=== PATIENT | female | born 1950 | race Caucasian/White ===

== ENCOUNTER 2019-10-05 01:03 | Outpatient (CLI) | payer MEDICARE, OTHER, SELFPAY ==
[2019-10-05 20:03] LABS: SARS-CoV-2 RNA PCR Negative
== END 2019-10-05 01:04 | disposition home or self-care (01) ==
LOC: ANHCOVIDDT 01:04
PROVIDERS: Visit Provider Specialist
DX: Z01.818 Encounter for other preprocedural examination (principal); Z11.59 Encounter for screening for other viral diseases
CPT/HCPCS: 87635; C9803; U0003

== ENCOUNTER 2019-10-07 08:16 | Day surgery (SDC) | payer MEDICARE, OTHER, SELFPAY ==
[2019-10-06 14:41] VITALS: BMI 32.2
[2019-10-07] VITALS (14 sets, daily range): BP systolic 113–147; BP diastolic 54–89; PULSE 41–58; RESP 14–23; TEMP 36.3; O2SAT 93–99
[2019-10-07 08:56] LABS: Basophils Percent Auto 0.3 % (0.2-1.2); Eosinophils Absolute Auto 0.1 K/mm3 (0-0.3); Eosinophils Percent Auto 1.3 % (0-4.4); Hematocrit 43.7 % (37.0-47.0); Hemoglobin 14.7 g/dL (12.0-15.0); Immature Granulocyte Absolute 0.14 K/mm3 (0.00-0.031); Immature Granulocyte Percent A 1.4 % (0-0.5); Lymphocytes Absolute Auto 1.74 K/mm3 (0.9-3.2); Lymphocytes Percent Auto 17.8 % (18.3-44.2); Mean Corpuscular HGB Conc 33.6 g/dl (32-36); Mean Corpuscular Hemoglobin 30.1 pg (26-34); Mean Corpuscular Volume 89.4 fl (80-100); Mean Platelet Volume 8.5 fl (7.4-10.4); Monocytes Absolute Auto 0.9 K/mm3 (0.1-0.6); Monocytes Percent Auto 9.4 % (2.6-8.5); Neutrophils Absolute Auto 6.8 K/mm3 (1.3-6.7); Neutrophils Percent Auto 69.8 % (45.5-73.1); Platelet Count Result 248 k/mm3 (150-375); Red Blood Count 4.89 M/mm3 (4.2-5.4); Red Cell Distribution Width 13.5 % (11.5-14.5); White Blood Count 9.8 K/mm3 (4.5-10.0)
[2019-10-07 09:08] LABS: Chloride 97 mmol/L (98-107)
[2019-10-07 09:10] LABS: Prothrombin Time 12.4 Seconds (11.1-14.7)
[2019-10-07 09:14] LABS: Blood Urea Nitrogen 16 mg/dL (7-17); Calcium 9.2 mg/dL (8.4-10.2); Carbon Dioxide 25 mmol/L (22-30); Estimated CRCL calculation 89 ml/min; Estimated Glomerular Filt Rate > 60; Glucose 99 mg/dL (65-105); Potassium 4.7 mmol/L (3.4-5.0); Sodium 129 mmol/L (137-145)
--- NOTE | 2019-10-07 10:20 | WPDMODSED ---
Moderate Sedation Note-Pt Data Patient Data Diagnosis: Mitral valve regurgitation with pulmonary hypertension Present Complaint: Exertional dyspnea Procedure to be performed/Plan: Right left heart catheterization Allergies Allergy/AdvReac Type Severity Reaction Status Date / Time morphine Allergy Unknown Verified 01/14/19 10:43 lisinopril AdvReac Unknown Cough Verified 12/16/17 09:16 Home Medications Medication Instructions Recorded Confirmed Type amlodipine 5 mg tablet 5 mg PO DAILY 04/26/19 10/07/19 History furosemide 40 mg tablet 40 mg PO BID 04/26/19 10/07/19 History losartan 50 mg tablet 50 mg PO DAILY 04/26/19 10/07/19 History rivaroxaban 20 mg tablet 20 mg PO DAILY 04/26/19 10/07/19 History citalopram 40 mg tablet 40 mg PO DAILY #90 tablet 07/17/19 10/07/19 Rx zolpidem 10 mg tablet 10 mg PO .hs PRN #30 tablet 07/20/19 10/07/19 Rx ascorbic acid (vitamin C) [Vitamin 500 mg PO DAILY 10/07/19 10/07/19 History C] cholecalciferol (vitamin D3) 25 mcg PO DAILY 10/07/19 10/07/19 History [Vitamin D3] dronedarone [Multaq] 400 mg PO BID 10/07/19 10/07/19 History metoprolol succinate 50 mg PO DAILY 10/07/19 10/07/19 History oxybutynin chloride 5 mg PO DAILY 10/07/19 10/07/19 History potassium chloride 20 meq PO DAILY 10/07/19 10/07/19 History Current Medications: Active Medications Sodium Chloride (Normal Saline Iv) 500 mls @ 100 mls/hr IV CONT .Q5H TRINI Sedation/Anesthesia: No previous sedation/anesthesia problems (including family history). [facility] Past Medical History Medical History (Updated 04/25/19 @ 21:30 by Shannan Dennis MD) Anxiety Essential hypertension H/O iron deficiency anemia Hyperlipidemia, unspecified Mitral valve disease Mixed hyperlipidemia Need for prophylactic antibiotic Prolactinoma Vitamin D deficiency Family History Family History (Updated 10/28/15 @ 23:19 by DOCTOR UNKNOWN) Mother Family history of glaucoma Family history of cataracts Family history of diabetes mellitus in first degree relative Family history of congestive heart failure Family history of heart disease in male family member before age 55 Father Asthma Cerebrovascular accident Family history of arthritis Family history of pancreatic cancer Family history of lung disease Other Diabetes mellitus Family history of coronary artery disease Family history of lung cancer Hypertension Social History Social History Smoking status: Never smoker Second hand tobacco smoke exposure: No Alcohol intake: current Substance use: never Living arrangements: alone Mod Sed Physical Exam Physical Exam Pre Procedural Exam: Normal: Nose, Neck, Throat, Airway, Lungs, Heart Rate, Heart Rhythm, Neuro Exam and Extremities and Variation: Appearance (Overweight white female) and Heart Size (Right ventricular lift) Hours since solid foods: 12 Hours since liquid intake: 12 Internal Medicine - PN: Obj Da Vital Signs Vital Signs: Vital Signs - 24 hr 10/07/19 09:02 Temperature 36.3 C L Pulse Rate 53 L Respiratory Rate 16 Blood Pressure 147/82 H Pulse Oximetry 95 Meds/Results Medications: Active Medications Generic Name Dose Route Start Last Admin Trade Name Freq PRN Reason Stop Dose Admin Sodium Chloride 500 mls @ 100 mls/hr 10/07/19 06:05 Normal Saline Iv IV CONT .Q5H TRINI Labs CBC & Chem 7: 10/07/19 08:47 10/07/19 08:47 Labs: Laboratory Results - last 24 hr 10/07/19 10/07/19 10/07/19 08:47 08:47 08:47 WBC 9.8 RBC 4.89 Hgb 14.7 Hct 43.7 MCV 89.4 MCH 30.1 MCHC 33.6 RDW 13.5 Plt Count 248 MPV 8.5 Immature Gran % (Auto) 1.4 H Neut % (Auto) 69.8 Lymph % (Auto) 17.8 L Blaine % (Auto) 9.4 H Eos % (Auto) 1.3 Baso % (Auto) 0.3 Lymph # (Auto) 1.74 Blaine # (Auto) 0.9 H Eos # (Auto) 0.1 Baso # (Auto) 0.0 Abs Immat Gran (auto) 0.14 H Absolute Neuts (auto) 6.8 H Absolute
--- NOTE | 2019-10-07 11:29 | WPDCARDPROC ---
Cardiac Cath Procedure Note Date of procedure:: 10/07/19 Performing physician:: Ovidio Rice MD Indication:: Patient with mitral valve prolapse / mitral regurgitation being evaluated is a potential candidate for surgical valve repair Brief clinical history:: 68-year-old female known to have mitral valve prolapse of the posterior leaflet. She has mitral regurgitation which appears moderate to severe by echo. She is having progressive symptoms of exertional fatigue and dyspnea. Because of this right left heart catheterization been recommended with anticipation for cardiothoracic surgery consultation Procedure Procedure performed:: right left heart catheterization Sedation/Medication given:: fentanyl 50 mg Versed 2 case start time 10:59 a.m. case end time 11:22 a.m. sedation provided by Natanael Delacruz RN , trained observer Access site:: right femoral artery / right femoral vein Estimated blood loss:: 10-15 cc Procedure note:: patient brought to the cardiac catheterization lab in the postabsorptive state. The right femoral triangle was prepared and draped usual fashion. Anesthesia was provided with 1% lidocaine infiltrated locally. Using the modified Seldinger technique 7 Algerian sheath was placed into the femoral vein and a 5 Algerian sheath into the femoral artery. Right heart catheterization was then carried out using a balloon tipped S curve Knifley-Juan catheter. Right-sided hemodynamics were documented as well as thermodilution cardiac outputs and AV O2 difference was sampled. Following this the Knifley-Juan catheter was removed. Left heart catheterization was performed using a 5 Algerian angled pigtail catheter to document left-sided hemodynamics and injecting a LV g in the 30 degree WADSWORTH projection. After this selective left coronary angiography was performed using a 5 Algerian FL4 catheter. Selective right coronary angiography was performed using a 5 Algerian JR4 catheter. The procedure was then terminated. Following an angiogram of the sheath the patient was taken to the holding area for manual sheath removal she has a very high bifurcation of the common femoral artery making her a poor candidate for Angio-Seal hemostasis device. 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 Findings:: right atrial pressure is 12 mmHg right ventricle 45 over 11 end-diastolic pressure 13. Pulmonary artery pressure 52/26. Pulmonary capillary wedge pressure was 19. Left ventricle 98 over 10 and diastolic 22. Central aortic pressure 99/48. Thermodilution cardiac output measured 3.53 liters/minute giving an index of 1.95. Debbie cardiac output 3.29 liters/minute giving an index of 1.82. The left ventricle is [id number] dilated. There is mild global hypocontractility the overall ejection fraction is in the vicinity of 50%. There is obvious prolapse of the posterior mitral valve leaflet with angiographically moderate mitral valve regurgitation. The left main coronary is very short but widely patent the LAD is a large caliber artery extending down to around the apex. The LAD has minimal luminal irregularity with plaquing in proximal 3rd. There is a very small mid diagonal branch with an ostial 70-80% stenosis. Circumflex is a large caliber vessel giving rise to the marginal branches which is angiographically smooth and normal in appearance. the right coronary artery is a medium caliber vessel dominant to the posterior circulation and is angiographically normal. Conclusion:: 1. Mild left ventricular enlargement with modest global hypokinesia ejection fraction of about 50% compared to 65% in 2018 2. pulmonary artery hypertension will secondary to MR very slightly progressed compared to 2018 3. depressed cardiac output as detailed above which was normal in 2018 4. no angiographically significant/ important coronary disease
--- NOTE | 2019-10-07 13:21 | SUR.PHASEII ---
1200-5F arterial sheath pulled by Melissa Bradshaw RN. Groin remained soft and non-tender, no evidence of bleeding or hematoma noted. Strong right pedal pulse noted. Thirty minutes of hard pressure remained in place. 7F venous sheath pulled at 1230. Will continue to monitor.
== END 2019-10-07 17:49 | disposition home or self-care (01) ==
PROVIDERS: PCP Family Medicine; Visit Provider Specialist
PROC: 4A023N8 Measurement of Cardiac Sampling and Pressure, Bilateral, Percutaneous Approach (ICD-10-PCS; CPT 93453; principal; 2019-10-07 10:00)
DX: Z01.810 Encounter for preprocedural cardiovascular examination (principal); I34.0 Nonrheumatic mitral (valve) insufficiency; I34.1 Nonrheumatic mitral (valve) prolapse; I27.20 Pulmonary hypertension, unspecified; I25.10 Atherosclerotic heart disease of native coronary artery without angina pectoris; I10 Essential (primary) hypertension; E78.2 Mixed hyperlipidemia; E55.9 Vitamin D deficiency, unspecified; Z79.01 Long term (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
CPT/HCPCS: 36415; 80048; 85025; 85610; 93460; C1887; C1894; J1644; J2250; J3010; J7040

== ENCOUNTER 2020-03-02 10:30 | Outpatient (RCR) | payer MEDICARE, OTHER, SELFPAY ==
[2019-12-17 12:36] VITALS: PULSE 63
--- NOTE | 2019-12-31 09:39 | PCCPR ---
Edgardo Wright called off states she has the diarrhea.
--- NOTE | 2020-02-02 16:30 | PCCPR ---
Radha called due to increased back pain Radha called today c/o when she walks on the TM it can cause her increased back pain. She is requesting she is willing to try if it causes to much pain she wants to stay on bicyccle tena explained that is fine. she was tearful and states she is learning she has some budging ?herniated discs in her low back. Explained she just needs to let us know we don't want her in pain.
--- NOTE | 2020-02-10 09:33 | PCCPR ---
Addendum entered by Belinda Traore RN 02/11/20 09:17: Radha called states her back and hip are still bothering her. She will have evaluated tomorrow. Original Note: Absent Adriana called states her hip is hurting her the last 2 days. She is using a heating pad and taking tylenol. She has a scheduled apt with her PCP on Saturday to evaluate her pain further.
--- NOTE | 2020-03-03 09:21 | PCCPR ---
Edgardo Wright called states she is not feeling well.
== END 2020-03-09 19:30 | disposition home or self-care (01) ==
LOC: ANHCPREHAB 10:30
PROVIDERS: PCP Family Medicine; Visit Provider Internal Medicine Cardiovascular Disease
DX: Z95.2 Presence of prosthetic heart valve (principal)
CPT/HCPCS: 93798

== ENCOUNTER → 2020-06-06 00:37 | Outpatient (CLI) | payer MEDICARE, OTHER, SELFPAY ==
[2020-06-06 18:03] LABS: SARS-CoV-2 RNA PCR Negative
== END ==
PROVIDERS: PCP Family Medicine; Visit Provider Internal Medicine Cardiovascular Disease
DX: Z01.812 Encounter for preprocedural laboratory examination (principal); Z20.822 Contact with and (suspected) exposure to COVID-19
CPT/HCPCS: C9803; U0003; U0005

== ENCOUNTER 2020-06-09 01:07 | Day surgery (SDC) | payer MEDICARE, OTHER, SELFPAY ==
[2020-06-08 15:52] VITALS: BMI 32.0
[2020-06-09] VITALS (11 sets, daily range): BP systolic 86–151; BP diastolic 37–79; PULSE 58–71; RESP 16–23; TEMP 35.7–35.9; O2SAT 94–100
[2020-06-09] MEDS: SODIUM CHLORIDE 0.9% IV 500 ML 100 ML IV CONT (09:11)
--- NOTE | 2020-06-09 10:08 | PM.IMHP ---
H&P: HPI History of Present Illness Date/Time: 06/09/20 10:08 Chief Complaint: Mitral regurgitation Narrative: 69-year-old who underwent a mitral valve repair with 2 annuloplasty rings as well as to edilma chords in October 2019. Repeat echocardiogram showed residual moderate mitral regurgitation both normalization of pulmonary hypertension and normal ejection fraction. She has been having some intermittent shortness of breath and JULISSA is performed to evaluate the mitral valve repair and cause of residual mitral regurgitation which appears to be new as compared to immediate post echo Review of Systems Review of Systems: All systems reviewed & are unremarkable except as noted in HPI and below Constitutional: Constitutional: Denies weakness Cardiovascular: Cardiovascular: Denies chest pain Respiratory: Respiratory: Reports dyspnea PMFSH Past Medical History Medical History Anxiety Essential hypertension H/O iron deficiency anemia Hyperlipidemia, unspecified Mitral valve disease Mixed hyperlipidemia Need for prophylactic antibiotic Prolactinoma Vitamin D deficiency Surgical History Surgical History H/O maze procedure History of mitral valve replacement with bioprosthetic valve Family History Family History Mother Family history of diabetes mellitus in first degree relative Family history of glaucoma Family history of congestive heart failure Family history of cataracts Diabetes mellitus Hypertension Father Family history of arthritis Cerebrovascular accident Asthma Esophageal cancer Hypertension Skin cancer Sibling Diabetes mellitus Skin cancer Sibling Diabetes mellitus Skin cancer Sibling Diabetes mellitus Social History Social History Smoking status: Never smoker Second hand tobacco smoke exposure: No Alcohol intake: current Drinks per week: 4 Substance use: never Substance use type: does not use Living arrangements: with family Spiritual care concerns: No Meds Home Medications and Allergies Home Medications Medication Instructions Recorded Confirmed Type furosemide 40 mg tablet 40 mg PO DAILY 04/26/19 06/08/20 History rivaroxaban 20 mg tablet 20 mg PO DAILY 04/26/19 06/08/20 History ascorbic acid (vitamin C) [Vitamin 500 mg PO DAILY 10/07/19 06/08/20 History C] cholecalciferol (vitamin D3) 25 mcg PO DAILY 10/07/19 06/08/20 History [Vitamin D3] metoprolol succinate 50 mg PO DAILY 10/07/19 06/08/20 History oxybutynin chloride 5 mg 5 mg PO DAILY #90 tablet 01/24/20 06/08/20 Rx tablet,extended release 24 hr citalopram 40 mg tablet 40 mg PO DAILY #90 tablet 02/01/20 06/08/20 Rx aspirin 81 mg tablet,delayed 81 mg PO DAILY 02/12/20 History release zolpidem 10 mg tablet 10 mg PO .hs PRN #30 tablet 02/29/20 06/08/20 Rx potassium chloride 20 mEq 20 meq PO DAILY #30 tablet 05/15/20 06/08/20 Rx tablet,extended release Allergies Allergy/AdvReac Type Severity Reaction Status Date / Time morphine Allergy Unknown Itching Verified 06/08/20 17:15 lisinopril AdvReac Unknown Cough Verified 06/08/20 17:15 Vital Signs Vital Signs - 24 hr 06/09/20 09:01 Temperature 35.9 C L Pulse Rate 62 Respiratory Rate 22 H Blood Pressure 130/75 Pulse Oximetry 98 Exam Const: General: comfortable and no acute distress HENMT: General nose exam: Normal nares present Eyes: Sclera: sclerae normal Neck: Neck: no JVD Chest: Other: No chest wall pain Resp: Auscultation: clear to auscultation bilaterally Cardio: Rate: regular rate Rhythm: regular rhythm GI: GI Palp: Yes Soft to palpation Skin: General skin exam: normal color Neuro: Cognition (Neuro): normal cognition Speech: normal speech Extrem: General: normal to inspection
--- NOTE | 2020-06-09 10:11 | WPDMODSED ---
Moderate Sedation Note-Pt Data Patient Data Diagnosis: Mitral regurgitation Present Complaint: Mitral regurgitation Procedure to be performed/Plan: 1. Multiplanar transesophageal echocardiography with color-flow pulse-wave Doppler 2. Moderate sedation Allergies Allergy/AdvReac Type Severity Reaction Status Date / Time morphine Allergy Unknown Itching Verified 06/08/20 17:15 lisinopril AdvReac Unknown Cough Verified 06/08/20 17:15 Home Medications Medication Instructions Recorded Confirmed Type furosemide 40 mg tablet 40 mg PO DAILY 04/26/19 06/08/20 History rivaroxaban 20 mg tablet 20 mg PO DAILY 04/26/19 06/08/20 History ascorbic acid (vitamin C) [Vitamin 500 mg PO DAILY 10/07/19 06/08/20 History C] cholecalciferol (vitamin D3) 25 mcg PO DAILY 10/07/19 06/08/20 History [Vitamin D3] metoprolol succinate 50 mg PO DAILY 10/07/19 06/08/20 History oxybutynin chloride 5 mg 5 mg PO DAILY #90 tablet 01/24/20 06/08/20 Rx tablet,extended release 24 hr citalopram 40 mg tablet 40 mg PO DAILY #90 tablet 02/01/20 06/08/20 Rx aspirin 81 mg tablet,delayed 81 mg PO DAILY 02/12/20 History release zolpidem 10 mg tablet 10 mg PO .hs PRN #30 tablet 02/29/20 06/08/20 Rx potassium chloride 20 mEq 20 meq PO DAILY #30 tablet 05/15/20 06/08/20 Rx tablet,extended release Current Medications: Active Medications Sodium Chloride (Normal Saline Iv) 500 mls @ 100 mls/hr IV CONT .Q5H TRINI Last Admin: 06/09/20 09:11 Dose: 100 mls/hr Documented by: Sedation/Anesthesia: No previous sedation/anesthesia problems (including family history). [facility] Past Medical History Medical History Anxiety Essential hypertension H/O iron deficiency anemia Hyperlipidemia, unspecified Mitral valve disease Mixed hyperlipidemia Need for prophylactic antibiotic Prolactinoma Vitamin D deficiency Surgical History Surgical History H/O maze procedure History of mitral valve repair History of mitral valve replacement with bioprosthetic valve Family History Family History Mother Family history of diabetes mellitus in first degree relative Family history of glaucoma Family history of congestive heart failure Family history of cataracts Diabetes mellitus Hypertension Father Family history of arthritis Cerebrovascular accident Asthma Esophageal cancer Hypertension Skin cancer Sibling Diabetes mellitus Skin cancer Sibling Diabetes mellitus Skin cancer Sibling Diabetes mellitus Social History Social History Smoking status: Never smoker Second hand tobacco smoke exposure: No Alcohol intake: current Drinks per week: 4 Substance use: never Substance use type: does not use Living arrangements: with family Spiritual care concerns: No Mod Sed Physical Exam Physical Exam Pre Procedural Exam: Normal: Appearance, Eyes, Ears, Nose, Neck, Throat, Airway, Lungs, Heart Size, Heart Rate, Heart Rhythm, Neuro Exam, Abdomen, Extremities and Skin Hours since solid foods: 12 Hours since liquid intake: 12 Internal Medicine - PN: Obj Da Vital Signs Vital Signs: Vital Signs - 24 hr 06/09/20 09:01 Temperature 35.9 C L Pulse Rate 62 Respiratory Rate 22 H Blood Pressure 130/75 Pulse Oximetry 98 Meds/Results Medications: Active Medications Generic Name Dose Route Start Last Admin Trade Name Freq PRN Reason Stop Dose Admin Sodium Chloride 500 mls @ 100 mls/hr 06/09/20 09:05 06/09/20 09:11 Normal Saline Iv IV CONT 100 mls/hr .Q5H TRINI Administration ASA Classification/Sedation ASA Classification/Sedation ASA Class: II Emergent: No Risks: Risks, benefits and alternatives explained and patient/family accepted plan for sedation. Patient re-evaluated immediately prior to s
--- NOTE | 2020-06-09 10:35 | WPDTEECHO ---
JULISSA TransEsophageal Echocardiogram Date of procedure: 06/09/20 Procedure Type: 1. Multiplanar transesophageal echocardiography with color-flow Doppler 2. Moderate sedation Diagnosis: Mitral regurgitation status post mitral valve repair Indications: Mitral regurgitation status post mitral valve repair Image Quality: good Findings: After discussing the risks, benefits alternatives of the procedure patient agreeable via verbal and written informed consent. Risks discussed included esophageal rupture perforation, need for emergency surgery, bleeding, pain, infection, sore throat, adverse reaction anesthesia. After consent was signed and after establishing continuous telemetry monitoring, pulse oxygenation and serial blood pressure assessments time-out was taken the procedure started. Procedure start time 10:16 a.m. Procedure stop time 10:32 a.m. Total of 5 mg of Versed and 75 mcg of fentanyl were given in divided dosages. Medications were administered patient was monitored by Mandi Ceballos RN Blood loss: None Complications: None Findings: Normal left ventricular size and function with ejection fraction estimated at 65-70% with mild left ventricular hypertrophy. Normal right ventricular size and function. Mild to moderate left atrial enlargement. Mild right atrial enlargement. Atrial septum is intact without color flow evidence of shunting. There is no pericardial effusion. The aortic root measures 3.1 cm. The pulmonic valve is normal with mild pulmonic insufficiency. The tricuspid valve is normal with mild tricuspid insufficiency. The aortic valve is trileaflet and mildly sclerotic. No significant aortic insufficiency. The mitral valve is well visualized. It is thickened with annuloplasty ring noted. There is a central regurgitant jet which is [id number].--and at worst moderate. Conclusions: 1. Normal left ventricular size and function 2. Biatrial enlargement 3. Mild pulmonic and tricuspid regurgitation 4. Mitral valve repair noted with annuloplasty ring seen with a central regurgitant jet of mitral regurgitation which is mild to moderate severity. 5. Moderate sedation
--- NOTE | 2020-06-09 10:41 | P.DS_ITS ---
DS: Admitting Diagnosis Admitting Diagnosis Admitting Diagnosis: Mitral regurgitation DS: Discharge Diagnosis Discharge Diagnosis (1) Mitral regurgitation: Code(s): I34.0 - Nonrheumatic mitral (valve) insufficiency Status: Acute (2) History of mitral valve repair: Code(s): Z98.890 - Other specified postprocedural states Status: Acute DS: Summary Hospital Course Hospital Course: Patient was brought into the chest pain center for an outpatient elective JULISSA to evaluate mitral regurgitation. She was found to have [id number] mitral regurgitation by JULISSA. Procedure was uncomplicated and she was discharged home. Time Spent with Patient Time attestation: Total time spent providing and/or coordinating discharge se rvices: Less than 30 minutes Exam Const: General: comfortable HENMT: General nose exam: Normal nares present Resp: Auscultation: clear to auscultation bilaterally Cardio: Rate: regular rate GI: GI Palp: Yes Soft to palpation Neuro: Motor exam (neuro): Normal motor muscle tone present throughout Extrem: General: normal to inspection DS: Data Procedures/Treatments: See JULISSA report Discharge Plan Discharge Patient Disposition: Home, Self-Care Discharge Instructions: Progressive ambulation Stand Alone Forms: General Discharge Instructions Discharge Orders: Discharge Order (Routine); Ordered 06/09/20 Ordered By: Nacho Pina Discharge Medications: Continued Xarelto 20 mg tablet 20 mg PO DAILY RF: 0 Hold Instructions: Resume on 10/13/19. Restart Sunday, October 13, 2019 with the evening meal furosemide 40 mg tablet 40 mg PO DAILY RF: 0 aspirin [Adult Aspirin Regimen] 81 mg tablet,delayed release (DR/EC) 81 mg PO DAILY RF: 0 metoprolol succinate 50 mg Tablet Extended Release 24 Hr 50 mg PO DAILY RF: 0 ascorbic acid (vitamin C) [Vitamin C] 500 mg Tablet 500 mg PO DAILY RF: 0 cholecalciferol (vitamin D3) [Vitamin D3] 25 mcg (1,000 unit) Tablet 25 mcg PO DAILY RF: 0 oxybutynin chloride 5 mg tablet extended release 24hr 5 mg PO DAILY Qty: 90 RF: 1 citalopram [Celexa] 40 mg tablet 40 mg PO DAILY Qty: 90 RF: 1 zolpidem [Ambien] 10 mg tablet 10 mg PO .hs PRN (Reason: insomnia) Qty: 30 RF: 2 potassium chloride 20 mEq tablet extended release 20 meq PO DAILY Qty: 30 RF: 3
--- NOTE | 2020-06-09 11:50 | SUR.PHASEII ---
RN went through discharge instructions with patient.Patient verbalized understanding of discharge instructions. Patient escorted by wheelchair to spouse's car
== END 2020-06-09 11:30 | disposition home or self-care (01) ==
PROVIDERS: PCP Family Medicine; Visit Provider Internal Medicine Cardiovascular Disease
PROC: (CPT 93312; principal; 2020-06-09 10:00)
DX: I34.0 Nonrheumatic mitral (valve) insufficiency (principal); I36.1 Nonrheumatic tricuspid (valve) insufficiency; I10 Essential (primary) hypertension; E78.2 Mixed hyperlipidemia; E55.9 Vitamin D deficiency, unspecified; F41.9 Anxiety disorder, unspecified; Z95.2 Presence of prosthetic heart valve; Z79.01 Long term (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; Z79.82 Long term (current) use of aspirin
CPT/HCPCS: 93312; 93320; 93325; J2250; J3010; J7040

== ENCOUNTER → 2020-09-19 13:32 | Outpatient (CLI) | payer MEDICARE, OTHER, SELFPAY ==
--- NOTE | ~2020-09-19 | MM_ITS ---
EXAMINATION: MM screening lisset BI w beulah HISTORY: Screening mammogram TECHNIQUE: Craniocaudal and mediolateral oblique 3-D tomosynthesis images were obtained and synthetic 2-D images were generated. CAD analysis was submitted and interpreted. COMPARISON: 02/06/2019 diagnostic left digital mammogram 05/21/2018, 07/07/2013 bilateral digital screening mammogram examinations BREAST PARENCHYMAL COMPOSITION: There are scattered areas of fibroglandular density. FINDINGS: There is a biopsy marker on the right; history of 2 prior benign right breast biopsies. Status post bilateral breast reduction surgery. Numerous bilateral benign calcifications including occasional calcified microhematoma and numerous se cretory calcifications. There is no evidence of suspicious mass, calcification, or architectural distortion to suggest malign steph in either breast. There has been no suspicious interval change. IMPRESSION: 1. No mammographic evidence of malignancy. 2. Recommend routine screening mammography in one year. BI-RADS Category 2: Benign finding(s). Reviewed, dictated and finalized at location A.
== END ==
PROVIDERS: PCP Family Medicine; Visit Provider Family Medicine
DX: Z12.31 Encounter for screening mammogram for malignant neoplasm of breast (principal)
CPT/HCPCS: 77063; 77067

== ENCOUNTER → 2021-04-05 12:36 | Outpatient (CLI) | payer MEDICARE, OTHER, SELFPAY ==
--- NOTE | ~2021-04-05 | US_ITS ---
EXAMINATION: US axilla RT HISTORY: Localized lumps and swelling of the right axilla TECHNIQUE: High-resolution ultrasound of the right axilla was performed. FINDINGS: A sonographically normal-appearing lymph node is present in the right axilla near the area of palpable concern. No suspicious cystic or solid mass is identified. IMPRESSION: No suspicious sonographic correlate is identified for the reported palpable abnormality of concern. F urther evaluation at this time should be based on clinical assessment. Continued follow-up physical e xamination is recommended. BI-RADS Category 1: Negative Reviewed, dictated and finalized at location A. GER FOOD IMPRESSION: No suspicious sonographic correlate is identified for the reported palpable abn ormality of concern. Further evaluation at this time should be based on clinica l assessment. Continued follow-up physical examination is recommended. BI-RADS Category 1: Negative
--- NOTE | ~2021-04-05 | XR_ITS ---
XR chest 2V DATE: 04/05/2021 13:21 INDICATION: Shortness of breath TECHNIQUE: 2 views COMPARISON: 12/10/2018 2 view chest FINDINGS: Status post sternotomy and mitral valve replacement since 12/10/2018. Cardiomegaly. Aortic arch calcification. There is mild pulmonary vascular congestion and redistribution consistent with mild congestive heart failure. No pulmonary infiltrate or consolidation, pleural effusion or pneumothorax is evident. Right glenohumeral joint replacement. Severe left chronic rotator cuff atrophy. Diffuse osteopenia. IMPRESSION: Cardiomegaly, mild congestive heart failure Status post sternotomy and mitral valve replacement Right glenohumeral arthroplasty Severe left rotator cuff atrophy Diffuse osteopenia Reviewed, dictated and finalized at location A. AR MAN
== END ==
PROVIDERS: PCP Family Medicine; Visit Provider Physician Assistant
DX: R22.31 Localized swelling, mass and lump, right upper limb (principal); I50.9 Heart failure, unspecified; M85.88 Other specified disorders of bone density and structure, other site; Z95.2 Presence of prosthetic heart valve; R06.02 Shortness of breath
CPT/HCPCS: 71046; 76882

== ENCOUNTER 2021-05-01 07:43 | Outpatient (CLI) | payer MEDICARE, OTHER, SELFPAY ==
--- NOTE | 2021-05-09 16:11 | WPDSLEEPSTUD ---
Sleep Study Date of Study: 05/01/21 <Emmy Sheppard DO - Last Filed: 05/09/21 16:45> Ordering Provider: Shannan Dennis MD <Emmy Sheppard DO - Last Filed: 05/09/21 16:45> Interpreting Physician: Emmy Sheppard DO <Emmy Sheppard DO - Last Filed: 05/09/21 16:45> Sleep Study Type: Split Polysomnogram <Emmy Sheppard DO - Last Filed: 05/09/21 16:45> Height: 1.57 m <Emmy Shepaprd DO - Last Filed: 05/09/21 16:45> Weight: 81.647 kg <Emmy Sheppard DO - Last Filed: 05/09/21 16:45> Body Mass Index: 32.9 <Emmy Sheppard DO - Last Filed: 05/09/21 16:45> Neck Circumference (inches): 17 <Emmy Sheppard DO - Last Filed: 05/09/21 16:45> [place]: 8 <Emmy Sheppard DO - Last Filed: 05/09/21 16:45> Reason for Sleep Study Unrefreshing sleep and daytime hypersomnia <Emmy Sheppard DO - Last Filed: 05/09/21 16:45> Sleep History The patient is a 70-year-old female with anxiety, hypertension, hyperlipidemia, prolactinoma, history of mitral valve replacement with bioprosthetic valve and lumbar spondylosis that had a split study ordered by her primary care for evaluation of sleep apnea. The patient was having a GI procedure done and had witnessed apneas. The patient denies awakening from sleep short of breath. She occasionally awakens at night with heartburn, belching or cough. She constantly snores loud enough that others complain. She occasionally has trouble sleeping when she has a cold. She denies waking up gasping for air spent the night. He denies having breathing problems at night observed by others. She denies sweating excessively at night. She denies having her palpitations or irregular heartbeats during the night. She denies falling asleep during the day but occasional falls asleep while driving. She denies sleep paralysis, cataplexy and hypnagogic/ hypnopompic hallucinations. She is currently retired. She occasionally nightmares. She frequently remembers her dreams. She occasionally has thoughts racing through her mind. She rarely feels sad or depressed. She rarely has anxiety. She rarely notices parts of her body jerk. She denies kicking during the night. She denies having crawling and aching feelings in her legs. She really has leg pain during the night. She occasionally going to teeth during sleep but never awakens with a morning jaw pain. She frequently bothered by pain during the day and rarely awakened by pain during the night. She occasionally wakes up feeling stiff in the morning with sore achy muscles. She occasionally wakes up with pain in the neck, spine or other joints. She goes to bed at midnight on both weekdays and weekends. It takes her 30 minutes to fall asleep. She wakes up 3-4 times throughout the night to urinate. She is able fall back asleep immediately. She wakes up 11:00 a.m. on both weekdays and weekends. She typically gets 8-10 of sleep per night. She will consume caffeinated beverages within 2 hours of bedtime. She does not engage in physical exercise before bedtime. She will occasionally watch television before falling asleep. She will occasionally take naps in the afternoon or the evening. She drinks 2 cups of coffee per day. She will drink 2 glasses of wine in the evening. She denies tobacco and recreational drug use. <Emmy Sheppard DO - Last Filed: 05/09/21 16:45> [facility] Past Medical History Medical History: Medical History Anxiety Essential hypertension H/O iron deficiency anemia Hyperlipidemia, unspecified Lumbar spondylosis Mitral valve disease Mixed hyperlipidemia Need for prophylactic antibiotic Prolactinoma Vitamin D deficiency <Emmy Sheppard DO - Last Filed: 05/09/21 16:45> Surgical History Surgical History: Surgical History (Reviewed 05/09/21 @ 16:17 by Emmy Sheppard
[2021-05-09 16:25] VITALS: BMI 32.9
--- NOTE | 2022-08-06 13:11 | SLEEP ---
LMx3 PROGRAM COMPLETE
== END 2021-05-02 06:40 | disposition home or self-care (01) ==
LOC: ANHCSM 07:55
PROVIDERS: PCP Family Medicine; Visit Provider Family Medicine
DX: G47.33 Obstructive sleep apnea (adult) (pediatric) (principal); R09.02 Hypoxemia
CPT/HCPCS: 95811

== ENCOUNTER → 2021-06-01 15:08 | Outpatient (CLI) | payer MEDICARE, OTHER, SELFPAY ==
--- NOTE | ~2021-06-01 | XR_ITS ---
XR lumbar spine 6V w bending 06/01/2021 15:49 Indication: Chronic back pain Procedure: 7 views of the lumbar spine including flexion/extension views Comparison: 07/14/2018 Findings: There is chronic superior endplate compression fracture of L3. There is disc narrowing at a ll lumbar levels. There is advanced multilevel facet hypertrophy at L2-3 through L5-S1. No acute frac ture, subluxation or dislocation. No evidence for spondylolisthesis. There is atherosclerosis. No sig nificant alteration of alignment with flexion/extension. Impression: 1: Severe lumbar spondylosis. 2: Stable superior endplate compression fracture of L3. Reviewed, dictated and finalized at location [facility] Impression: 1: Severe lumbar spondylosis. 2: Stable superior endplate compression fracture of L3.
== END ==
PROVIDERS: PCP Family Medicine
DX: M47.816 Spondylosis without myelopathy or radiculopathy, lumbar region (principal)
CPT/HCPCS: 72114

== ENCOUNTER 2021-09-16 15:25 | Emergency (ER) | payer MEDICARE, OTHER, SELFPAY ==
[2021-09-16] VITALS (21 sets, daily range): BP systolic 106–150; BP diastolic 47–79; PULSE 70–78; RESP 16–20; TEMP 36.6; O2SAT 87–100
--- NOTE | ~2021-09-16 | CT_ITS ---
EXAMINATION: CT brain wo con DATE: 09/16/2021 16:23 INDICATION: head injury . TECHNIQUE: Computed tomography (CT) of the head was performed without intravenous contrast. The mA wa s adjusted according to patient size. Iterative reconstruction technique was employed. The dose-lengt h product was 605.33 mGy-cm. COMPARISON: None FINDINGS: No acute intracranial hemorrhage or extra-axial fluid collection. No hydrocephalus, mass, or herniation. No acute ischemic infarct. Unremarkable dural venous sinus attenuation. No acute osseous abnormality. The aerated spaces are clear. Mild atrophy. Atherosclerotic intracranial calcifications. Bilateral lens replacements. IMPRESSION: No acute intracranial process. Reviewed, dictated and finalized at location K.
--- NOTE | ~2021-09-16 | XR_ITS ---
EXAM: XR knee LT 2V, XR tibia fibula LT 2V DATE: 09/16/2021 16:09 (accession [id number]), 09/16/2021 16:08 (accession [id number]) HISTORY: FALL- SWELLING, PAIN . COMPARISON: None available. FINDINGS: Mildly decreased mineralization. Comminuted minimally displaced proximal left tibial fract ure, with extension to the central tibial plateau/joint. Minimal posterior displacement and anterior angulation mostly resolves and subsequent views. No lytic or blastic lesion. Joint spaces are maintai anand. No erosion or periosteal change. Large volume joint fluid. Large soft tissue contusion over the proximal and anterior leg. IMPRESSION: Comminuted, minimally displaced proximal left tibial fracture with extension to the tibia l plateau and joint line. Large volume left knee joint fluid collection (likely lipohemarthrosis). Reviewed, dictated and finalized at location K. IMPRESSION: Comminuted, minimally displaced proximal left tibial fracture with extension to the tibial plateau and joint line. Large volume left knee joint fl uid collection (likely lipohemarthrosis).
--- NOTE | 2021-09-16 16:07 | ED.LOWEXIN ---
HPI - Extremity Injury (Lower) General Chief Complaint: Extremity Injury, Lower Stated Complaint: L knee injury/deformity Time Seen by Provider: 09/16/21 15:39 Source: patient Mode of arrival: EMS Limitations: no limitations History of Present Illness HPI Narrative: This is a 70 year old female that presents to the ER for left knee injury sustained just prior to arrival. Reports she was going to see a play and missed a step in the theater and fell forward onto the knee. She hit her head on a chair. She did not lose consciousness. Reports since she has had pain and swelling of the left knee. She does not want to move the knee due to pain. Denies prodromal symptoms, vision changes, vomiting, numbness or weakness. Related Data Home Medications Medication Instructions Recorded Confirmed ascorbic acid (vitamin C) 500 mg 500 mg PO DAILY 10/07/19 04/17/21 tablet (Vitamin C) guaifenesin 1,200 mg tablet, 1,200 mg PO BID 09/07/20 04/17/21 extended release 12 hr (Mucinex) zinc 50 mg tablet 50 mg PO DAILY 09/07/20 04/17/21 methocarbamol 500 mg tablet 500 mg PO TID 04/17/21 04/17/21 Allergies Allergy/AdvReac Type Severity Reaction Status Date / Time morphine Allergy Unknown Itching Verified 09/16/21 16:15 lisinopril AdvReac Unknown Cough Verified 09/16/21 16:15 Review of Systems Review of Systems: CONSTITUTIONAL: Denies fever EYES: Denies visual changes GASTROINTESTINAL: Denies vomiting MUSCULOSKELETAL: Reports joint pain and myalgia. Denies back pain NEUROLOGIC: Denies numbness, or weakness. All systems reviewed & are unremarkable except as noted in HPI and below PMFSH Past Medical History Medical History Anxiety Essential hypertension H/O iron deficiency anemia Hyperlipidemia, unspecified Lumbar spondylosis Mitral valve disease Mixed hyperlipidemia Need for prophylactic antibiotic Prolactinoma Vitamin D deficiency Surgical History Surgical History H/O maze procedure History of mitral valve repair History of mitral valve replacement with bioprosthetic valve Family History Family History Mother Family history of diabetes mellitus in first degree relative Family history of glaucoma Family history of congestive heart failure Family history of cataracts Diabetes mellitus Hypertension Father Family history of arthritis Cerebrovascular accident Asthma Esophageal cancer Hypertension Skin cancer Sibling Diabetes mellitus Skin cancer Sibling Diabetes mellitus Skin cancer Sibling Diabetes mellitus Social History Social History Second hand tobacco smoke exposure: No Alcohol intake: current Drinks per week: 14 Substance use: never Substance use type: does not use Spiritual care concerns: No Exam Narrative: GENERAL: Well-appearing, well-nourished, and in no acute distress. HEAD: Normocephalic, atraumatic. EYES: PERRLA and EOMI. ENT: Nares clear, no rhinorrhea or epistaxis. Mucous membranes moist. Oropharynx without tonsillar hypertrophy exudate or other lesions. Bilateral TMs [place] non-bulging NECK: Supple. No adenopathy or masses. No midline spinal tenderness CHEST: Clear to auscultation. No respiratory distress. No wheezes rales or rhonchi HEART: Regular rate and rhythm. No murmur heard. Normal peripheral pulses. EXTREMITIES: Normal range of motion, except decreased active ROM in the left knee with obvious deformity and edema. Normal DP pulse. Normal sensation SKIN: Warm, dry, no rash. NEURO: No focal deficits. Alert and oriented x3. PSYCH: Normal mood and affect Course Consultations Consultation #1: Spoke with Dr. Navarro about patient and workup who recommends transfer to trauma center. Date: 09/16/21 Consultation #2: Spoke with Dr. Gregorio
[2021-09-16] MEDS: fentaNYL CITRATE INJ (*CRX) 100 MCG/2 ML VIAL 50 MCG IV PUSH ×2 (17:24→18:55)
--- NOTE | 2021-09-16 18:18 | PC.NURSE ---
transfer to [facility] doss declined no truck [place] eta 20p
--- NOTE | 2021-09-16 18:36 | PC.NURSE ---
[facility] - cancelled PA changed from ALS to BLS [facility] accepted transfer ETA 19p
== END 2021-09-16 19:12 | disposition short-term general hospital (02) ==
PROVIDERS: Emergency Provider Emergency Medicine; PCP Family Medicine
DX: S82.142A Displaced bicondylar fracture of left tibia, initial encounter for closed fracture (principal); S09.90XA Unspecified injury of head, initial encounter; I10 Essential (primary) hypertension; E78.2 Mixed hyperlipidemia; I34.1 Nonrheumatic mitral (valve) prolapse; E55.9 Vitamin D deficiency, unspecified; F41.9 Anxiety disorder, unspecified; Z95.2 Presence of prosthetic heart valve; W10.9XXA Fall (on) (from) unspecified stairs and steps, initial encounter
CPT/HCPCS: 70450; 73560; 73590; 96374; 96375; 96376; 99285; J0131; J3010

== ENCOUNTER 2021-11-01 08:52 | Inpatient (IN) | payer MEDICARE, OTHER, SELFPAY ==
[2021-11-01] VITALS (9 sets, daily range): BP systolic 133–195; BP diastolic 70–100; PULSE 75–79; RESP 18–21; TEMP 35.7–36.8; O2SAT 93–95; BMI 30.4
--- NOTE | ~2021-11-01 | CT_ITS ---
EXAMINATION: CT abdomen pelvis w con DATE: 11/01/2021 11:22 INDICATION: Bilateral lower abdominal pain. Nausea. Epigastric abdominal pain. TECHNIQUE: Computed tomography (CT) of the abdomen and pelvis was performed with 100 mL Omnipaque 350 intravenous contrast. Automated exposure control and iterative reconstruction technique were employe d. The dose-length product was 755.83 mGy-cm. COMPARISON: CT abdomen and pelvis 05/31/2016 FINDINGS: The visualized portions of the lung bases demonstrate smooth septal thickening, consistent with mild pulmonary edema. No pleural effusion. Cardiomegaly is noted. There are changes of mitral va lve replacement. There are coronary artery calcifications. No pericardial effusion. There are changes of fundoplication of the stomach. There is a chronic 1.9 cm mass in left hepatic lobe with periphera l puddling of contrast, consistent with a hemangioma. There is focal steatosis in the liver adjacent to the falciform ligament. There are changes of cholecystectomy. The spleen, pancreas, adrenal glands , and kidneys are normal. There are scattered diverticula in the colon. There is fat stranding around the sigmoid colon, consistent with diverticulitis. The appendix is normal. There are no dilated loop s of bowel. There are no pathologically enlarged lymph nodes. There is no free intraperitoneal fluid. There is thoracolumbar dextroscoliosis and severe spondylosis. IMPRESSION: 1. Acute sigmoid diverticulitis. No perforation or abscess. 2. Mild pulmonary edema. Reviewed, dictated and finalized at location A.
--- NOTE | ~2021-11-01 | XR_ITS ---
EXAMINATION: XR abdomen obstructive series DATE: 11/03/2021 08:45 INDICATION: Nausea. TECHNIQUE: Upright and supine views of the abdomen on 3 radiographs were obtained. COMPARISON: CT abdomen and pelvis 11/01/2021 FINDINGS: There is dilated small bowel in right abdomen. There is a paucity of stool in the colon. No free intraperitoneal gas. There are surgical clips in the abdomen. There are changes of mitral valve replacement. IMPRESSION: 1. Dilated small bowel in right abdomen, likely adynamic ileus. Reviewed, dictated and finalized at location A.
--- NOTE | 2021-11-01 09:01 | ECG_ITS ---
Measurements Intervals [place] Rate: 76 P: 61 WI: 169 QRS: 33 QRSD: 98 T: 40 QT: 416 QTc: 469 Interpretive Statements SINUS RHYTHM WITH FREQUENT VENTRICULAR PREMATURE COMPLEXES BASELINE ARTIFACT NONSPECIFIC ST ABNORMALITY BORDERLINE ECG NO PREVIOUS ECG AVAILABLE FOR COMPARISON Electronically Signed On 11-01-2021 12:45:39 CDT by Tyshawn Hilton M.D.
--- NOTE | 2021-11-01 09:27 | ED.GENADULT ---
HPI - General Adult General Chief complaint: Abdominal Pain Stated complaint: abd pain Source: RN notes reviewed History of Present Illness HPI narrative: Patient presents emergency department from [facility] via EMS for abdominal pain. Patient states she is currently in rehab secondary to falling and fracturing her tibia which required surgery she states she has been having abdominal pain in the mid abdomen for the past 3 days the pain described as aching in nature and does not radiate patient states there is associated nausea she denies any fevers or chills chest pain shortness of breath vomiting diarrhea or any other symptoms states she is not taking thing for the pain today Related Data Home Medications Medication Instructions Recorded Confirmed ascorbic acid (vitamin C) 500 mg 500 mg PO DAILY 10/07/19 04/17/21 tablet (Vitamin C) guaifenesin 1,200 mg tablet, 1,200 mg PO BID 09/07/20 04/17/21 extended release 12 hr (Mucinex) zinc 50 mg tablet 50 mg PO DAILY 09/07/20 04/17/21 methocarbamol 500 mg tablet 500 mg PO TID 04/17/21 04/17/21 Allergies Allergy/AdvReac Type Severity Reaction Status Date / Time morphine Allergy Unknown Itching Verified 11/01/21 09:03 lisinopril AdvReac Unknown Cough Verified 11/01/21 09:03 Review of Systems Review of Systems: Gen.: Denies fevers or chills ENT: Denies congestion Respiratory: Denies shortness of breath or cough CV: Denies chest pain or palpitations GI: See HPI denies burning, urgency, frequency or hematuria Musculoskeletal: Denies back pain or muscle pain Neuro: Denies numbness, tingling, weakness or focal weakness Skin: Denies rash Except as documented, all other systems reviewed and negative [facility] Past Medical History Medical History Anxiety Essential hypertension H/O iron deficiency anemia Hyperlipidemia, unspecified Lumbar spondylosis Mitral valve disease Mixed hyperlipidemia Need for prophylactic antibiotic Prolactinoma Vitamin D deficiency Surgical History Surgical History H/O maze procedure History of mitral valve repair History of mitral valve replacement with bioprosthetic valve Family History Family History Mother Family history of diabetes mellitus in first degree relative Family history of glaucoma Family history of congestive heart failure Family history of cataracts Diabetes mellitus Hypertension Father Family history of arthritis Cerebrovascular accident Asthma Esophageal cancer Hypertension Skin cancer Sibling Diabetes mellitus Skin cancer Sibling Diabetes mellitus Skin cancer Sibling Diabetes mellitus Social History Social History Second hand tobacco smoke exposure: No Alcohol intake: current Drinks per week: 14 Substance use: never Substance use type: does not use Spiritual care concerns: No Exam Narrative: APPEARANCE: No acute distress, nontoxic, resting in bed HEENT: Normocephalic, atraumatic, OMM RESPIRATORY: No respiratory distress, clear to auscultation bilaterally with no rhonchi wheezing or rales CARDIOVASCULAR: RRR s murmur ABDOMINAL: Soft nondistended tender palpation diffusely throughout the abdomen no rebound or guarding MUSCULOSKELETAl: Moves all extremities. No clubbing, cyanosis or edema. NEURO: Awake and alert. Following commands, speech normal, no focal deficits SKIN:: Warm, dry. Normal Color PSYCHIATRIC: Normal affect/mood Course Course Emergency Course: Discussed with Dr. Davidson presentation work-up agrees with admission Discussed with patient and family results of workup and diagnosis. Discussed need for admission. Patient and family understand and agree to current treatment plan Vital Signs Vital signs: Vital Signs Temperature 98.3 F 03
[2021-11-01 10:01] LABS: Basophils Percent Auto 0.2 % (0.2-1.2); Eosinophils Percent Auto 0.1 % (0-4.4); Hemoglobin 11.4 g/dL (12.0-15.0); Immature Granulocyte Absolute 0.12 K/mm3 (0.00-0.031); Lymphocytes Absolute Auto 0.75 K/mm3 (0.9-3.2); Lymphocytes Percent Auto 6.4 % (18.3-44.2); Mean Corpuscular HGB Conc 31.7 g/dl (32-36); Mean Corpuscular Hemoglobin 28.1 pg (26-34); Mean Corpuscular Volume 88.9 fl (80-100); Mean Platelet Volume 8.7 fl (7.4-10.4); Monocytes Absolute Auto 0.4 K/mm3 (0.1-0.6); Monocytes Percent Auto 3.5 % (2.6-8.5); Neutrophils Absolute Auto 10.4 K/mm3 (1.3-6.7); Neutrophils Percent Auto 88.8 % (45.5-73.1); Platelet Count Result 357 k/mm3 (150-375); Red Blood Count 4.05 M/mm3 (4.2-5.4); Red Cell Distribution Width 13.5 % (11.5-14.5); White Blood Count 11.7 K/mm3 (4.5-10.0)
[2021-11-01 10:12] LABS: Alanine Aminotransferase 21 U/L (6-35); Alkaline Phosphatase 137 U/L (38-126); Anion Gap 8 mmol/L (8-16); Aspartate Amino Transferase 25 U/L (14-36); Bilirubin,Total 0.4 mg/dL (0.2-1.3); Blood Urea Nitrogen 15 mg/dL (7-17); Calcium 9.2 mg/dL (8.4-10.2); Carbon Dioxide 28 mmol/L (22-30); Chloride 89 mmol/L (98-107); Estimated CRCL calculation 85 ml/min; Estimated Glomerular Filt Rate > 60; Glucose 130 mg/dL (65-110); Lipase 146 U/L (23-300); Potassium 3.9 mmol/L (3.4-5.0); Sodium 125 mmol/L (137-145)
[2021-11-01 10:18] LABS: Lactic Acid Reflex 0.9 mmol/L (0.7-2.0)
[2021-11-01 10:36] LABS: Appearance Urine Clear (Clear); Bilirubin Urine 1+ (Negative); Color Urine Yellow (Yellow); Glucose Urine UA Negative (Negative); Ketones Urine Trace mg/dL (Negative); Leukocyte Esterase Ur 3+ LEU/UL (Negative); Nitrate Urine Negative (Negative); Protein Urine 1+ mg/dL (Negative); Specific Grav Ur 1.025 (1.001-1.035); pH Urine 6.5 (5.0-9.0)
[2021-11-01 10:37] LABS: SARS-CoV-2 RNA PCR Negative
[2021-11-01 10:41] LABS: Add Urine Microscopic? YES; Bacteria Urine Trace /hpf; Blood Urine Trace-Intact (Negative); Mucus Urine Rare /lpf; Squamous Epithelial Cell Urine Rare /hpf (Few); WBC Urine >75 /hpf
[2021-11-01] MEDS: SODIUM CHLORIDE 0.9% IV 1,000 ML 999 ML IV CONT (10:46)
[2021-11-01] MEDS: ONDANSETRON INJ 4 MG/2 ML VIAL IV PUSH ×3 (11:46→19:49)
--- NOTE | 2021-11-01 14:05 | ADMGEN ---
This patient, Adriana Benitez, was admitted to [facility] Surg Room 329-01. Patient oriented to hospital policies and general routines including ID bracelet, bed and alarms, visiting hours, pain management, procedures, bathroom and other care routines, personal items, smoking policy, room service/diet, and visiting hours. Information on how to activate the Rapid Response Team has been discussed. Patient are encouraged to report perceived risks to care and to ask questions if they do not understand what they are told or what they should do.
[2021-11-01] MEDS: SODIUM CHLORIDE 0.9% IV 1,000 ML 125 ML IV CONT ×2 (14:58→22:05)
--- NOTE | 2021-11-01 15:36 | PM.IMHP ---
H&P: HPI History of Present Illness Date/Time: 11/01/21 15:36 Chief Complaint: Abdominal pain Narrative: this is a 70-year-old female patient who has no prior history of diverticulosis. She has multiple other medical diagnosis. She came to the emergency room today due to epigastric discomfort. She is also having dry heaves. The patient also complains of mid abdominal pain for the last 3 days which is very achy. The patient recently came out of rehab for a tibial fracture that was repaired. She denies any fever chills. The patient stated that she is having some tenderness to the midsternal chest which is reproducible with touch. The patient stated that she has been coughing. Her white count is 11.7. H&H is 11.4 And 36.0. her sodium is 125 minutes chloride 89. Urine had 3+ leukocyte esterase urine 6-10 rbc's and greater than 75 wbc's. COVID test is negative. She was given IV fluids, IV Tylenol, Zofran and Zosyn in the emergency room. The patient is being admitted to observation status on the date of service of 11/01/2021. Review of Systems Review of Systems: All systems reviewed & are unremarkable except as noted in HPI and below Constitutional: Constitutional: Reports as per HPI and Reports no additional constitutional complaints Eyes: Eyes: Reports as per HPI and Reports no additional eye complaints ENT: Reports system reviewed and no additional complaints, except as documented and Reports Normal hearing present Cardiovascular: Cardiovascular: Reports no additional cardiovascular complaints Respiratory: Respiratory: Reports no additional respiratory complaints and Reports no additional respiratory complaints Gastrointestinal: Gastrointestinal: Reports as per HPI and Reports no additional gastrointestinal complaints Musculoskeletal: Musculoskeletal: Reports no additional musculoskeletal complaints Integumentary/Breasts: Skin/Breast: Reports system reviewed and no additional complaints, except as docu and Reports as per HPI Neurologic: Reports system reviewed and no additional complaints, except as documented, Reports as per HPI and Reports Normal hearing present Psychiatric: Psychiatric: Reports no additional psychiatric complaints and Reports as per HPI Endocrine: Endocrine: Reports no additional endocrine complaints Hematologic/Lymphatic: Hematologic/Lymphatic: Reports no additional hematologic/lymphatic complaints Allergic/Immunologic: Allergic/Immunologic: Reports no additional allergic/immunologic complaints [facility] Past Medical History Medical History (Updated 11/01/21 @ 16:02 by Keke James NP) Anxiety Atrial fibrillation Essential hypertension H/O iron deficiency anemia Hyperlipidemia, unspecified Lumbar spondylosis Mitral valve disease Mixed hyperlipidemia Need for prophylactic antibiotic Prolactinoma Vitamin D deficiency Surgical History Surgical History (Updated 11/01/21 @ 15:51 by Keke James NP) H/O cardiac radiofrequency ablation H/O maze procedure History of mitral valve repair Family History Family History Mother Family history of diabetes mellitus in first degree relative Family history of glaucoma Family history of congestive heart failure Family history of cataracts Diabetes mellitus Hypertension Father Family history of arthritis Cerebrovascular accident Asthma Esophageal cancer Hypertension Skin cancer Sibling Diabetes mellitus Skin cancer Sibling Diabetes mellitus Skin cancer Sibling Diabetes mellitus Social History Social History (Updated 11/01/21 @ 15:52 by Keke James NP) Social History: the patient lives at home with her Gildardo . her son is the durable associate attorney for healthcare. The patient is retired. She has 3 children. She is a lifelong nonsmoker. She drinks approximately 14 alcoholic drinks a week. She denies any marijuana or illicit drug use. Code s
[2021-11-01 17:01] LABS: Troponin I < 0.012 ng/mL (0.000-0.034)
[2021-11-01 17:18] LABS: Creatinine Urine 67.6 mg/dL
[2021-11-01 17:20] LABS: Potassium Urine Random 66.6 meq/L; Sodium Urine Random 47 meq/L
[2021-11-01 17:21] LABS: Urine Cotinine NEGATIVE
[2021-11-01] MEDS: RIVAROXABAN 20 MG TABLET PO (17:43)
[2021-11-01] MEDS: ZOLPIDEM TARTRATE (*CRX) 5 MG TABLET PO (19:49)
[2021-11-01] MEDS: oxyCODONE HCL (*CRX) 5 MG TAB IR PO (19:50)
[2021-11-01 19:53] LABS: Anion Gap 7 mmol/L (8-16); Blood Urea Nitrogen 12 mg/dL (7-17); Calcium 8.5 mg/dL (8.4-10.2); Carbon Dioxide 27 mmol/L (22-30); Chloride 93 mmol/L (98-107); Estimated CRCL calculation 84 ml/min; Estimated Glomerular Filt Rate > 60; Glucose 122 mg/dL (65-110); Potassium 3.8 mmol/L (3.4-5.0); Sodium 127 mmol/L (137-145)
[2021-11-01 20:05] LABS: Troponin I < 0.012 ng/mL (0.000-0.034)
--- NOTE | 2021-11-01 21:25 | PCRCNOTE ---
pt is refusing the use of hospital CPAP unit tonight. pt states she is nauseated and does not feel good. pt states she would like to try hospital unit tomorrow night on 11/02.
[2021-11-02] VITALS (9 sets, daily range): BP systolic 155–174; BP diastolic 84–97; PULSE 71–79; RESP 14–18; TEMP 36.2–36.4; O2SAT 90–94; BMI 30.4
[2021-11-02 00:19] LABS: Troponin I 0.017 ng/mL (0.000-0.034)
[2021-11-02] MEDS: ONDANSETRON INJ 4 MG/2 ML VIAL IV PUSH ×5 (01:07→17:57)
[2021-11-02] MEDS: oxyCODONE HCL (*CRX) 5 MG TAB IR PO ×2 (01:12→16:15)
[2021-11-02] MEDS: SODIUM CHLORIDE 0.9% IV 1,000 ML 125 ML IV CONT (05:38)
[2021-11-02 07:54] LABS: Basophils Percent Auto 0.2 % (0.2-1.2); Hematocrit 33.9 % (37.0-47.0); Hemoglobin 10.5 g/dL (12.0-15.0); Immature Granulocyte Absolute 0.12 K/mm3 (0.00-0.031); Immature Granulocyte Percent A 1.2 % (0-0.5); Lymphocytes Absolute Auto 1.01 K/mm3 (0.9-3.2); Lymphocytes Percent Auto 10.5 % (18.3-44.2); Mean Corpuscular Hemoglobin 27.9 pg (26-34); Mean Corpuscular Volume 89.9 fl (80-100); Mean Platelet Volume 9.1 fl (7.4-10.4); Monocytes Absolute Auto 0.7 K/mm3 (0.1-0.6); Neutrophils Absolute Auto 7.8 K/mm3 (1.3-6.7); Neutrophils Percent Auto 81.1 % (45.5-73.1); Platelet Count Result 340 k/mm3 (150-375); Red Blood Count 3.77 M/mm3 (4.2-5.4); Red Cell Distribution Width 13.4 % (11.5-14.5); White Blood Count 9.6 K/mm3 (4.5-10.0)
[2021-11-02 08:20] LABS: Anion Gap 10 mmol/L (8-16); Blood Urea Nitrogen 8 mg/dL (7-17); Calcium 8.1 mg/dL (8.4-10.2); Carbon Dioxide 26 mmol/L (22-30); Chloride 95 mmol/L (98-107); Estimated CRCL calculation 84 ml/min; Estimated Glomerular Filt Rate > 60; Glucose 121 mg/dL (65-110); Potassium 3.4 mmol/L (3.4-5.0); Sodium 131 mmol/L (137-145)
--- NOTE | 2021-11-02 16:34 | PM.IMPN ---
Progress Note: A&P Assessment and Plan (1) Diverticulitis: Code(s): K57.92 - Diverticulitis of intestine, part unspecified, without perforation or abscess without bleeding Status: Acute Assessment and Plan: Patient presents with complaints of abdominal pain. CT scan showing acute sigmoid diverticulitis. White count was slightly elevated but is normal now. She was started on Zosyn. No fevers. BCx NGTD. She is still complaining of significant abdominal pain and nausea. Abdominal exam is relatively benign however. No flatus or bowel movement so consider ileus. Will see how she does tonight. Will check KUB in the morning. Continue IV antibiotics. Continue clear liquid diet (2) UTI (urinary tract infection): Code(s): N39.0 - Urinary tract infection, site not specified Status: Acute Assessment and Plan: UA noted. Urine culture pending. Continue Zosyn. Follow up on urine culture results. (3) Hyponatremia: Code(s): E87.1 - Hypo-osmolality and hyponatremia Status: Acute Assessment and Plan: Sodium 125 on admission. His climbed to 131 today. Chad 47 with FENa 0.3. Suspect related to dehydration. It appears that she has a history of low sodium at times. She is on citalopram which could be contributing but still feel related to dehydration. Will hold off on IV fluids since she has mild pulmonary edema noted. (4) Sleep apnea: Code(s): G47.30 - Sleep apnea, unspecified Status: Acute Assessment and Plan: She was recently diagnosed with obstructive sleep apnea and has not received her CPAP as of yet. CPAP auto titration ordered but patient refused. (5) Atrial fibrillation: Code(s): I48.91 - Unspecified atrial fibrillation Status: Acute Assessment and Plan: Patient has a history of atrial fibrillation status post ablation. EKG showing normal sinus rhythm. Telemetry showing no significant dysrhythmias. Continue with metoprolol and I encouraged her to take her medications. Continue with Xarelto. Stop tele. (6) Congestive heart failure: Code(s): I50.9 - Heart failure, unspecified Status: Acute Assessment and Plan: Last echo was June 2021 showing EF of 70-75%, diastolic dysfunction and djpd-rs-lrgzrrjm mitral valve regurgitation. CT of the abdomen pelvis showing mild pulmonary edema. Exam is clear however. Lasix on hold due to low sodium. Continue with metoprolol and losartan. Hold on more IV fluids. (7) Essential hypertension: Code(s): I10 - Essential (primary) hypertension Status: Acute Assessment and Plan: Patient's blood pressure was reviewed on 11/02 Blood pressure remains poorly controlled but she has not taken her medications. Encouraged her to take her losartan and metoprolol (8) History of mitral valve repair: Code(s): Z98.890 - Other specified postprocedural states Status: Acute Assessment and Plan: Patient had a mitral valve repair. Echo showing mild-moderate MR. (9) Depression with anxiety: Code(s): F41.8 - Other specified anxiety disorders Status: Acute Assessment and Plan: Stable. Na better so will continue Celexa. Subjective Date/time seen: 11/02/21 16:34 Interval history: 70yo female with AFib and ANAM here for abd pain and found to have diverticulitis. Patient complaining of continued abdominal pain and nausea. Abdominal pain mostly in the epigastric region. No bowel movements or flatus now. Not tolerating clear liquids. Denies chest pain. Not taking her medications. Exam Narrative: AF 97.2 174/84 78 18 94% ra Gen - NARD Chest - CTA bilaterally, nml RR CV - RRR S1/S2. Telemetry showing PVCs and bigeminy. Abd - soft, ND, +BS, minimal tenderness. no guarding. Ext - No pedal edema Psych - Nml mood and affect Skin - Warm and dry Objective Data Vital Signs Vital Signs: Vital Si
[2021-11-02] MEDS: RIVAROXABAN 20 MG TABLET PO (17:57)
[2021-11-02] MEDS: METOPROLOL SUCCINATE EXT REL 50 MG TABCR PO (17:58)
[2021-11-02] MEDS: LOSARTAN POTASSIUM 50 MG TABLET PO (17:59)
[2021-11-02] MEDS: CITALOPRAM HYDROBROMIDE 20 MG TABLET 40 MG PO (17:59)
[2021-11-02] MEDS: POTASSIUM CHLORIDE 20 MEQ TABLET.ER PO (17:59)
[2021-11-02 20:37] LABS: Sodium 123 mmol/L (137-145)
[2021-11-02] MEDS: ZOLPIDEM TARTRATE (*CRX) 5 MG TABLET PO (20:50)
[2021-11-03] MEDS: ONDANSETRON INJ 4 MG/2 ML VIAL IV PUSH ×5 (01:13→21:58)
[2021-11-03] MEDS: oxyCODONE HCL (*CRX) 5 MG TAB IR PO ×3 (01:13→17:48)
[2021-11-03 01:25] LABS: Sodium 125 mmol/L (137-145)
[2021-11-03] MEDS: SODIUM CHLORIDE 0.9% IV 1,000 ML 100 ML IV CONT (02:00)
[2021-11-03 06:00] VITALS: BP 163/105; PULSE 72; RESP 16; TEMP 36.4; O2SAT 90
[2021-11-03 06:46] LABS: Basophils Percent Auto 0.1 % (0.2-1.2); Eosinophils Percent Auto 0.2 % (0-4.4); Hematocrit 35.2 % (37.0-47.0); Hemoglobin 11.1 g/dL (12.0-15.0); Immature Granulocyte Percent A 0.9 % (0-0.5); Lymphocytes Absolute Auto 1.01 K/mm3 (0.9-3.2); Lymphocytes Percent Auto 9.1 % (18.3-44.2); Mean Corpuscular HGB Conc 31.5 g/dl (32-36); Mean Corpuscular Hemoglobin 28.1 pg (26-34); Mean Corpuscular Volume 89.1 fl (80-100); Monocytes Absolute Auto 0.7 K/mm3 (0.1-0.6); Monocytes Percent Auto 6.1 % (2.6-8.5); Neutrophils Absolute Auto 9.3 K/mm3 (1.3-6.7); Neutrophils Percent Auto 83.6 % (45.5-73.1); Platelet Count Result 348 k/mm3 (150-375); Red Blood Count 3.95 M/mm3 (4.2-5.4); Red Cell Distribution Width 13.2 % (11.5-14.5); White Blood Count 11.2 K/mm3 (4.5-10.0)
[2021-11-03 06:58] LABS: Albumin Level 3.8 g/dL (3.5-5.1); Anion Gap 9 mmol/L (8-16); Blood Urea Nitrogen 8 mg/dL (7-17); Calcium 8.3 mg/dL (8.4-10.2); Carbon Dioxide 26 mmol/L (22-30); Chloride 92 mmol/L (98-107); Estimated CRCL calculation 102 ml/min; Estimated Glomerular Filt Rate > 60; Glucose 110 mg/dL (65-110); Magnesium 1.6 mg/dL (1.6-2.3); Phosphorus 2.7 mg/dL (2.5-4.5); Potassium 3.3 mmol/L (3.4-5.0); Sodium 127 mmol/L (137-145)
[2021-11-03 08:00] VITALS: PULSE 72; RESP 16; O2SAT 90
[2021-11-03] MEDS: ZINC SULFATE 220 MG CAPSULE 50 MG PO (09:06)
[2021-11-03] MEDS: LOSARTAN POTASSIUM 50 MG TABLET PO (09:07)
[2021-11-03] MEDS: CITALOPRAM HYDROBROMIDE 20 MG TABLET 40 MG PO (09:07)
[2021-11-03] MEDS: METOPROLOL SUCCINATE EXT REL 50 MG TABCR PO (09:07)
[2021-11-03] MEDS: POTASSIUM CHLORIDE 20 MEQ TABLET.ER PO (09:08)
--- NOTE | 2021-11-03 10:25 | PCNFU ---
Nutrition Follow-Up Complete: Inadequate Oral Intake as related to Nausea as evidenced by poor po intake reported and weight loss of 5-7 ibs in the past 3 months. Goal:Adequate Intake of at least 75% of meals/supplements. Pt is not progressing towards goal at this time. Pt current nutrition is Clear liquids. Nutrition recommendation: Continue with current plan of care. Encouraged ensure clear Last recorded weight is 75.4 kg - stable at this time. Bowel Motility: +BM 10/30 Labs Reviewed: hgb:11.1, HCT:35.2, Na:127, K:3.3, Cr:0.4 Meds Noted: zofran, KCL Skin: WNL Additional Notes: Pt continues on clears with poor tolerance, was able to tolerate hot liquids some this morning. Encouraged Ensure clear at room temp as pt states all cold items were not tolerated. Will continue to monitor. RD will montior every 3 days.
--- NOTE | 2021-11-03 12:46 | PM.IMPN ---
Progress Note: A&P Assessment and Plan (1) Diverticulitis: Code(s): K57.92 - Diverticulitis of intestine, part unspecified, without perforation or abscess without bleeding Status: Acute Assessment and Plan: Patient presents with complaints of abdominal pain. CT scan showing acute sigmoid diverticulitis. White count was slightly elevated but is normal now. She was started on Zosyn. No fevers. BCx NGTD. She is still complaining of significant abdominal pain and nausea. KUB shows ileus pt should be npo with fluids i will consult GI to review her (2) UTI (urinary tract infection): Code(s): N39.0 - Urinary tract infection, site not specified Status: Acute Assessment and Plan: UA noted. Urine culture pending. Continue Zosyn. Uc pending (3) Hyponatremia: Code(s): E87.1 - Hypo-osmolality and hyponatremia Status: Acute Assessment and Plan: Sodium 125 on admission. now 127 secondary to dehydration (4) Sleep apnea: Code(s): G47.30 - Sleep apnea, unspecified Status: Acute Assessment and Plan: She was recently diagnosed with obstructive sleep apnea and has not received her CPAP as of yet. CPAP auto titration ordered but patient refused. (5) Atrial fibrillation: Code(s): I48.91 - Unspecified atrial fibrillation Status: Acute Assessment and Plan: Patient has a history of atrial fibrillation status post ablation. Continue with Xarelto. (6) Congestive heart failure: Code(s): I50.9 - Heart failure, unspecified Status: Acute Assessment and Plan: Last echo was June 2021 showing EF of 70-75%, diastolic dysfunction and ydzl-nf-nntkiluv mitral valve regurgitation. CT of the abdomen pelvis showing mild pulmonary edema. Continue with metoprolol and losartan. bolus fluids (7) Essential hypertension: Code(s): I10 - Essential (primary) hypertension Status: Acute Assessment and Plan: BP is high ? non compliance to medications Encouraged her to take her losartan and metoprolol (8) History of mitral valve repair: Code(s): Z98.890 - Other specified postprocedural states Status: Acute Assessment and Plan: Patient had a mitral valve repair. Echo showing mild-moderate MR. (9) Depression with anxiety: Code(s): F41.8 - Other specified anxiety disorders Status: Acute Assessment and Plan: Stable. Na better so will continue Celexa. Subjective Date/time seen: 11/03/21 12:46 Interval history: 70yo female with AFib and ANAM here for and pain and found to have diverticulitis. Pt still does not feel well complains of nausea and abdominal pains. Exam Narrative: Vital Signs Temp Pulse Resp BP Pulse Ox O2 Del Method 11/03/21 08:00 72 16 90 Room Air 11/03/21 06:00 36.4 C L 72 16 163/105 H 90 11/02/21 20:00 71 14 90 Room Air 11/02/21 22:00 36.4 C 71 14 170/97 H 90 11/02/21 16:00 78 11/02/21 14:00 36.2 C L 78 18 174/84 H 94 Intake and Output 11/02/21 11/03/21 11/03/21 23:59 07:59 15:59 Intake Total 200 600 440 Output Total 650 1400 400 Balance
--- NOTE | 2021-11-03 13:03 | PC.NURSE ---
500 ml NS bolus given per communication order.
[2021-11-03 13:43] VITALS: BP 160/93; PULSE 71; RESP 20; TEMP 35.8; O2SAT 92
[2021-11-03] MEDS: RIVAROXABAN 20 MG TABLET PO (17:24)
[2021-11-03] MEDS: SODIUM CHLORIDE 0.9% IV 1,000 ML 50 ML IV CONT (17:48)
[2021-11-03 20:00] VITALS: PULSE 67; RESP 18; O2SAT 92
[2021-11-03] MEDS: ZOLPIDEM TARTRATE (*CRX) 5 MG TABLET PO (21:58)
[2021-11-03 22:00] VITALS: BP 147/84; PULSE 67; RESP 18; TEMP 35.9; O2SAT 92
[2021-11-04] MEDS: oxyCODONE HCL (*CRX) 5 MG TAB IR PO (01:18)
[2021-11-04 06:00] VITALS: BP 155/78; PULSE 63; RESP 16; TEMP 36.1; O2SAT 94
[2021-11-04 07:19] LABS: Anion Gap 6 mmol/L (8-16); Blood Urea Nitrogen 8 mg/dL (7-17); Calcium 8.2 mg/dL (8.4-10.2); Carbon Dioxide 31 mmol/L (22-30); Chloride 94 mmol/L (98-107); Estimated CRCL calculation 84 ml/min; Estimated Glomerular Filt Rate > 60; Glucose 99 mg/dL (65-110); Potassium 4.3 mmol/L (3.4-5.0); Sodium 131 mmol/L (137-145)
[2021-11-04 08:33] VITALS: PULSE 68
[2021-11-04] MEDS: METOPROLOL SUCCINATE EXT REL 50 MG TABCR PO (08:33)
[2021-11-04] MEDS: LOSARTAN POTASSIUM 50 MG TABLET PO (08:34)
[2021-11-04] MEDS: POTASSIUM CHLORIDE 20 MEQ TABLET.ER PO (08:34)
[2021-11-04] MEDS: CITALOPRAM HYDROBROMIDE 20 MG TABLET 40 MG PO (08:34)
--- NOTE | 2021-11-04 10:02 | WPDGICN ---
Assessment and Plan Assessment and plan (1) Diverticulitis: Code(s): K57.92 - Diverticulitis of intestine, part unspecified, without perforation or abscess without bleeding Status: Acute Assessment and Plan: Patient admitted to the hospital with diverticulitis. Currently improving with conservative management. On physical exam she does have bowel sounds and relatively soft abdomen suggesting resolution of ileus. Because of no recent bowel movements would hesitate implement diet at this point. To collect suppositories will be started after she has some bowel movements that perhaps starting liquid diet and advancing to a low residue diet. Complete course of 7-10 days of antibiotics is encouraged. Initially intravenously can change to oral antibiotics when diet as tolerated. Patient has had a colonoscopy earlier this year would not automatically anticipate that she should have a follow-up colonoscopy which otherwise would be required. I would recommend that she follow-up with her established hydrography teacher Dr. Keo Chávez for ongoing care as she has had a duodenal adenomatous polyp that needs follow-up closely. 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 She is followed with established hydrography teacher. She will need to follow with them after discharge. Patient also had colonoscopy is these are often associated with colon polyps. She should continue to follow up with hydrography teacher Dr. Keo Chávez after discharge for routine follow-up. GI Consult Note Consult date/time: 11/04/21 10:02 Reason for consult: Asked to see patient by a hospitalist service because of ileus . HPI: Adriana Benitez is a 70 year old female Presented to the [facility] on 11[facility]2021 with diffuse abdominal pain. CT scan of the abdomen suggested diverticulitis. Patient has been started on broad-spectrum antibiotics. She states that today she feels pain has improved to some degree. She has not yet had a bowel movement. An x-ray performed last evening was very nonspecific but raise the question of an ileus. Patient reports that an NG tube was never placed. She try Diederich liquids yesterday but had some difficulties with this. Review of records reveals the patient has an underlying history of Gregory's esophagus. Followed by Dr. Keo Chávez. she underwent an EGD in July of 2021 because of a duodenal adenoma. He has been following this for some time. Additionally patient had a colonoscopy earlier this year and may have had colon polyps in the past. Review of Systems Review of Systems: Review of systems noncontributory. [facility] Past Medical History Medical History (Updated 11/04/21 @ 10:09 by Keo Chau MD) Anxiety Atrial fibrillation Essential hypertension H/O iron deficiency anemia Hyperlipidemia, unspecified Lumbar spondylosis Mitral valve disease Mixed hyperlipidemia Need for prophylactic antibiotic Prolactinoma Vitamin D deficiency Surgical History Surgical History (Updated 11/01/21 @ 15:51 by Keke James NP) H/O cardiac radiofrequency ablation H/O maze procedure History of mitral valve repair Family History Family History Mother Family history of diabetes mellitus in first degree relative Family history of glaucoma Family history of congestive heart failure Family history of cataracts Diabetes mellitus Hypertension Father Family history of arthritis Cerebrovascular accident Asthma Esophageal cancer Hypertension Skin cancer Sibling Diabetes mellitus
--- NOTE | 2021-11-04 11:37 | PM.IMPN ---
Progress Note: A&P Assessment and Plan (1) Diverticulitis: Code(s): K57.92 - Diverticulitis of intestine, part unspecified, without perforation or abscess without bleeding Status: Acute Assessment and Plan: Patient presents with complaints of abdominal pain. CT scan showing acute sigmoid diverticulitis. White count was slightly elevated but is normal now. She was started on Zosyn. No fevers. BCx NGTD. She is still complaining of significant abdominal pain and nausea. KUB shows ileus pt should be npo with fluids i will consult GI to review her (2) UTI (urinary tract infection): Code(s): N39.0 - Urinary tract infection, site not specified Status: Acute Assessment and Plan: UA noted. Urine culture pending. Continue Zosyn. Uc pending (3) Hyponatremia: Code(s): E87.1 - Hypo-osmolality and hyponatremia Status: Acute Assessment and Plan: Sodium 125 on admission. now 127 secondary to dehydration (4) Sleep apnea: Code(s): G47.30 - Sleep apnea, unspecified Status: Acute Assessment and Plan: She was recently diagnosed with obstructive sleep apnea and has not received her CPAP as of yet. CPAP auto titration ordered but patient refused. (5) Atrial fibrillation: Code(s): I48.91 - Unspecified atrial fibrillation Status: Acute Assessment and Plan: Patient has a history of atrial fibrillation status post ablation. Continue with Xarelto. (6) Congestive heart failure: Code(s): I50.9 - Heart failure, unspecified Status: Acute Assessment and Plan: Last echo was June 2021 showing EF of 70-75%, diastolic dysfunction and alax-vl-mwhomcia mitral valve regurgitation. CT of the abdomen pelvis showing mild pulmonary edema. Continue with metoprolol and losartan. bolus fluids (7) Essential hypertension: Code(s): I10 - Essential (primary) hypertension Status: Acute Assessment and Plan: BP is high ? non compliance to medications Encouraged her to take her losartan and metoprolol (8) History of mitral valve repair: Code(s): Z98.890 - Other specified postprocedural states Status: Acute Assessment and Plan: Patient had a mitral valve repair. Echo showing mild-moderate MR. (9) Depression with anxiety: Code(s): F41.8 - Other specified anxiety disorders Status: Acute Assessment and Plan: Stable. Na better so will continue Celexa. Additional Plan 11/04/2021 Plan is to continue current treatment. GI consult noted. Diet as tolerated started with clear liquids. Subjective Date/time seen: 11/04/21 11:37 Patient was seen during the morning rounds today. Patient abdominal pain is slightly better. Mild nausea. No vomiting. No chest pain. No shortness of breath. Mood stable. Review of Systems Review of Systems: All systems reviewed & are unremarkable except as noted in HPI and below Constitutional: Constitutional: Reports as per HPI and Reports no additional constitutional complaints Eyes: Eyes: Reports as per HPI and Reports no additional eye complaints ENT: Reports system reviewed and no additional complaints, except as documented and Reports Normal hearing present Cardiovascular: Cardiovascular: Reports no additional cardiovascular complaints Respiratory: Respiratory: Reports no additional respiratory complaints and Reports no additional respiratory complaints Gastrointestinal: Gastrointestinal: Reports as per HPI and Reports no additional gastrointestinal complaints Musculoskeletal: Musculoskeletal: Reports no additional musculoskeletal complaints Integumentary/Breasts: Skin/Breast: Reports system reviewed and no additional complaints, except as docu and Reports as per HPI Neurologic: Reports system reviewed and no additional complaints, except as documented, Reports as per HPI and Reports Normal hearing present Ps
[2021-11-04] MEDS: BISACODYL 10 MG SUPPOSITORY RECTAL (13:02)
[2021-11-04] MEDS: SODIUM CHLORIDE 0.9% IV 1,000 ML 50 ML IV CONT (13:04)
[2021-11-04 14:00] VITALS: BP 155/74; PULSE 69; RESP 20; TEMP 36.9; O2SAT 96
[2021-11-04] MEDS: RIVAROXABAN 20 MG TABLET PO (16:38)
[2021-11-04 20:00] VITALS: PULSE 72; RESP 18; O2SAT 94
[2021-11-04 22:00] VITALS: BP 152/80; PULSE 72; RESP 18; TEMP 36.2; O2SAT 94
[2021-11-04] MEDS: ZOLPIDEM TARTRATE (*CRX) 5 MG TABLET PO (22:46)
[2021-11-05 06:00] VITALS: BP 157/90; PULSE 73; RESP 18; TEMP 35.9; O2SAT 95
--- NOTE | 2021-11-05 08:41 | PM.IMPN ---
Progress Note: A&P Assessment and Plan (1) Diverticulitis: Code(s): K57.92 - Diverticulitis of intestine, part unspecified, without perforation or abscess without bleeding Status: Acute Assessment and Plan: Patient presents with complaints of abdominal pain. CT scan showing acute sigmoid diverticulitis. White count was slightly elevated but is normal now. She was started on Zosyn. No fevers. BCx NGTD. She is still complaining of significant abdominal pain and nausea. KUB shows ileus pt should be npo with fluids i will consult GI to review her (2) UTI (urinary tract infection): Code(s): N39.0 - Urinary tract infection, site not specified Status: Acute Assessment and Plan: UA noted. Urine culture pending. Continue Zosyn. Uc pending (3) Hyponatremia: Code(s): E87.1 - Hypo-osmolality and hyponatremia Status: Acute Assessment and Plan: Sodium 125 on admission. now 127 secondary to dehydration (4) Sleep apnea: Code(s): G47.30 - Sleep apnea, unspecified Status: Acute Assessment and Plan: She was recently diagnosed with obstructive sleep apnea and has not received her CPAP as of yet. CPAP auto titration ordered but patient refused. (5) Atrial fibrillation: Code(s): I48.91 - Unspecified atrial fibrillation Status: Acute Assessment and Plan: Patient has a history of atrial fibrillation status post ablation. Continue with Xarelto. (6) Congestive heart failure: Code(s): I50.9 - Heart failure, unspecified Status: Acute Assessment and Plan: Last echo was June 2021 showing EF of 70-75%, diastolic dysfunction and ippe-us-dpndnczb mitral valve regurgitation. CT of the abdomen pelvis showing mild pulmonary edema. Continue with metoprolol and losartan. bolus fluids (7) Essential hypertension: Code(s): I10 - Essential (primary) hypertension Status: Acute Assessment and Plan: BP is high ? non compliance to medications Encouraged her to take her losartan and metoprolol (8) History of mitral valve repair: Code(s): Z98.890 - Other specified postprocedural states Status: Acute Assessment and Plan: Patient had a mitral valve repair. Echo showing mild-moderate MR. (9) Depression with anxiety: Code(s): F41.8 - Other specified anxiety disorders Status: Acute Assessment and Plan: Stable. Na better so will continue Celexa. Additional Plan 11/05/2021 Plan is to continue current treatment. GI consult noted. Increase diet as tolerated, tolerating clear liquids. Subjective Date/time seen: 11/05/21 08:41 Patient was seen during the morning rounds today. Patient abdominal pain is slightly better. Patient was able to tolerate p.o. liquids. No nausea or vomiting. No chest pain or shortness of breath. Mood stable. Review of Systems Review of Systems: All systems reviewed & are unremarkable except as noted in HPI and below Constitutional: Constitutional: Reports as per HPI and Reports no additional constitutional complaints Eyes: Eyes: Reports as per HPI and Reports no additional eye complaints ENT: Reports system reviewed and no additional complaints, except as documented and Reports Normal hearing present Cardiovascular: Cardiovascular: Reports no additional cardiovascular complaints Respiratory: Respiratory: Reports no additional respiratory complaints and Reports no additional respiratory complaints Gastrointestinal: Gastrointestinal: Reports as per HPI and Reports no additional gastrointestinal complaints Musculoskeletal: Musculoskeletal: Reports no additional musculoskeletal complaints Integumentary/Breasts: Skin/Breast: Reports system reviewed and no additional complaints, except as docu and Reports as per HPI Neurologic: Reports system reviewed and no additional complaints, except as documented, Reports as
[2021-11-05] MEDS: ZINC SULFATE 220 MG CAPSULE 50 MG PO (08:59)
[2021-11-05 09:00] VITALS: PULSE 76
[2021-11-05] MEDS: POTASSIUM CHLORIDE 20 MEQ TABLET.ER PO (09:00)
[2021-11-05] MEDS: LOSARTAN POTASSIUM 50 MG TABLET PO (09:00)
[2021-11-05] MEDS: METOPROLOL SUCCINATE EXT REL 50 MG TABCR PO (09:00)
[2021-11-05] MEDS: CITALOPRAM HYDROBROMIDE 20 MG TABLET 40 MG PO (09:00)
[2021-11-05] MEDS: SODIUM CHLORIDE 0.9% IV 1,000 ML 50 ML IV CONT (09:02)
--- NOTE | 2021-11-05 09:51 | WPDGIPROGNO ---
Progress Note: A&P Assessment and Plan (1) Diverticulitis: Code(s): K57.92 - Diverticulitis of intestine, part unspecified, without perforation or abscess without bleeding Status: Acute Assessment and Plan: Patient with resolving diverticulitis. Now had several bowel movements. Plan to start liquid diet and advanced to low residue diet. At the time of discharge she may eventually benefit from high-fiber diet. Patient will continue antibiotics for 7-10 day course. Patient had recent colonoscopy and therefore no specific follow-up colonoscopy advised although she does have a history of colon polyps and should follow up with established GI doctor. 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 Follow-up according his directions after discharge for long-term care. Subjective Date/time seen: 11/05/21 09:51 Patient alert appears more comfortable today. Had several bowel movements with after suppositories yesterday states she is hungry and anticipates eating today. Denies any significant abdominal pain. Review of Systems Review of Systems: Review of systems noncontributory. Exam Narrative: Physical exam reveals abdomen be obese. Bowel sounds are present. No localized tenderness at this time. Objective Data Vital Signs Vital Signs: Vital Signs - 24 hr 11/04/21 14:00 11/04/21 22:00 11/04/21 20:00 Temperature 98.5 F 97.2 F L Pulse Rate 69 72 72 Respiratory Rate 20 18 18 Blood Pressure 155/74 H 152/80 H Pulse Oximetry 96 94 94 Oxygen Delivery Room Air 11/05/21 06:00 11/05/21 09:00 Temperature 96.7 F L Pulse Rate 73 76 Respiratory Rate 18 Blood Pressure 157/90 H Pulse Oximetry 95 Oxygen Delivery Intake/Output Intake/Output: Intake & Output 11/02/21 11/03/21 11/04/21 11/05/21 23:59 23:59 23:59 23:59 Intake Total 1580 2500 2720 1800 Output Total 850 2400 2800 1000 Balance 730 100 -80 800 Meds/Results Medications: Active Medications Generic Name Dose Route Start Last Admin Trade Name Freq PRN Reason Stop Dose Admin Bisacodyl 10 mg 11/05/21 09:00 11/05/21 08:58 Bisacodyl 10 Mg Suppository RECTAL Not Given QAM TRINI Citalopram Hydrobromide 40 mg 11/02/21 09:00 11/05/21 09:00 Citalopram Hydrobromide 20 Mg Tablet PO 40 mg DAILY TRINI Administration Guaifenesin 1,200 mg 11/01/21 15:49 Guaifenesin 12 Hr 600 Mg Tabcr PO Q12H PRN Congestion Piperacillin/Tazobactam/Dextrose 3.375 gm in 50 mls @ 100 mls/hr 11/01/21 18:00 11/05/21 09:02 Zosyn 3.375 Gm/D5w 50ml Pm IVPB Infused Q6H TRINI Infusion Sodium Chloride 1,000 mls @ 50 mls/hr 11/03/21 17:35 11/05/21 09:02 Normal Saline Iv IV CONT 50 mls/hr .Q20H TRINI Administration Losartan Potassium 50 mg 11/02/21 09:00 11/05/21 09:00 Losartan Potassium 50 Mg Tablet PO 50 mg DAILY TRINI Administration Methocarbamol 500 mg 11/01/21 15:49 Methocarbamol 500 Mg Tablet PO TID PRN MUSCLE SPASMS Metoprolol Succinate 50 mg 11/02/21 09:00 11/05/21 09:00 Metoprolol Succinate Ext Rel 50 Mg Tabcr PO 50 mg DAILY TRINI Administration Ondansetron HCl 4 mg 11/01/21 13:04 11/03/21 21:58 Ondansetron Inj 4 Mg/2 Ml Vial IV PUSH 4 mg Q4H PRN Administration Nausea Oxybutynin Chloride 5 mg 11/02/21 09:00 11/05/21 08:59 Oxybutynin Chloride Xl 5 Mg Tab.Er.24 PO 5 mg DAILY TRINI Administration Oxycodone HCl 5 mg 11/01/21 15:49 11/04/21 01:18 Oxycodone Hcl (*Crx) 5 Mg Tab Ir PO 5 mg Q6H PRN Administration PAIN RATED 7-10 Potassium Chloride 20 meq 11/02/21 09:00 11/05/21 09:00 Potassium Chloride 20 Meq Tablet.Er PO 20 meq DAILY TRINI Administration Rivaroxaban 20 mg 11/01/21 17:00 11/04/21 16:38 Rivaroxaban 20 Mg Tablet PO 20 mg DAILY@1700 [facility] Admini
[2021-11-05 14:00] VITALS: BP 126/61; PULSE 74; RESP 16; TEMP 36.6; O2SAT 94
[2021-11-05] MEDS: RIVAROXABAN 20 MG TABLET PO (17:01)
[2021-11-05 22:00] VITALS: BP 149/75; PULSE 70; RESP 18; TEMP 36.4; O2SAT 94
[2021-11-05] MEDS: ACETAMINOPHEN 325 MG TABLET 650 MG PO (22:43)
[2021-11-05] MEDS: ZOLPIDEM TARTRATE (*CRX) 5 MG TABLET PO (22:43)
[2021-11-06 06:00] VITALS: BP 158/84; PULSE 61; RESP 16; TEMP 35.7; O2SAT 95
[2021-11-06] MEDS: SODIUM CHLORIDE 0.9% IV 1,000 ML 50 ML IV CONT (06:58)
--- NOTE | 2021-11-06 07:26 | WPDGIPROGNO ---
Progress Note: A&P Assessment and Plan (1) Diverticulitis: Code(s): K57.92 - Diverticulitis of intestine, part unspecified, without perforation or abscess without bleeding Status: Acute Assessment and Plan: Patient admitted with acute diverticulitis. Clinically improving. Currently on a low-fiber diet. As pain improves would advance to a high-fiber diet as an outpatient. Continue 7-10 days of antibiotics post discharge. 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 This is Dr Chávez. Patient does have a history of duodenal polyp that will need ultimately follow-up at his direction. 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 Her vital signs are stable. She is anicteric. Patient tolerating low-fiber diet without difficulty. Able to ambulate around the room yesterday. Review of Systems Review of Systems: Review of systems noncontributory. Exam Narrative: Physical exam reveals patient be alert. Vital signs stable. HEENT exam reveals no icterus. Lungs are clear to auscultation and percussion. Heart is without murmur. Abdomen is obese. Bowel sounds are present soft no localized tenderness at this time. Objective Data Vital Signs Vital Signs: Vital Signs - 24 hr 11/05/21 09:00 11/05/21 08:00 11/05/21 14:00 Temperature 97.8 F Pulse Rate 76 74 Respiratory Rate 16 Blood Pressure 126/61 Pulse Oximetry 94 Oxygen Delivery Room Air 11/05/21 20:00 11/05/21 22:00 11/06/21 06:00 Temperature 97.5 F L 96.3 F L Pulse Rate 70 61 Respiratory Rate 18 16 Blood Pressure 149/75 H 158/84 H Pulse Oximetry 94 95 Oxygen Delivery Room Air Intake/Output Intake/Output: Intake & Output 11/03/21 11/04/21 11/05/21 11/06/21 23:59 23:59 23:59 23:59 Intake Total 2500 2720 3360 1200 Output Total 2400 2800 1300 1000 Balance 100 -80 2060 200 Meds/Results Medications: Active Medications Generic Name Dose Route Start Last Admin Trade Name Freq PRN Reason Stop Dose Admin Acetaminophen 650 mg 11/05/21 22:02 11/05/21 22:43 Acetaminophen 325 Mg Tablet PO 650 mg Q4H PRN Administration Mild Pain (1-3) or Fever Bisacodyl 10 mg 11/05/21 09:00 11/05/21 08:58 Bisacodyl 10 Mg Suppository RECTAL Not Given QAM TRINI Citalopram Hydrobromide 40 mg 11/02/21 09:00 11/05/21 09:00 Citalopram Hydrobromide 20 Mg Tablet PO 40 mg DAILY TRINI Administration Guaifenesin 1,200 mg 11/01/21 15:49 Guaifenesin 12 Hr 600 Mg Tabcr PO Q12H PRN Congestion Piperacillin/Tazobactam/Dextrose 3.375 gm in 50 mls @ 100 mls/hr 11/01/21 18:00 11/06/21 06:59 Zosyn 3.375 Gm/D5w 50ml Pm IVPB 100 mls/hr Q6H TRINI Administration Sodium Chloride 1,000 mls @ 50 mls/hr 11/03/21 17:35 11/06/21 06:58 Normal Saline Iv IV CONT 50 mls/hr .Q20H TRINI Administration Losartan Potassium 50 mg 11/02/21 09:00 11/05/21 09:00 Losartan Potassium 50 Mg Tablet PO 50 mg DAILY TRINI Administration Methocarbamol 500 mg 11/01/21 15:49 Methocarbamol 500 Mg Tablet PO TID PRN MUSCLE SPASMS Metoprolol Succinate 50 mg 11/02/21 09:00 11/05/21 09:00 Metoprolol Succinate Ext Rel 50 Mg Tabcr PO 50 mg DAILY TRINI Administration Ondansetron HCl 4 mg 11/01/21 13:04 11/03/21 21:58 Ondansetron Inj 4 Mg/2 Ml Vial IV PUSH 4 mg Q4H PRN Administration Nausea Oxybutynin Chloride 5 mg 11/02/21 09:00 11/05/21 08:59 Oxybutynin Chloride Xl 5 Mg Tab.Er.24 PO 5 mg DAILY TRINI Administration Oxycodone HCl 5 mg 11/01/21 15:49 11/04/21 01:18 Oxycodone Hcl (*Crx) 5 Mg Tab Ir PO 5 mg Q6H PRN Administration PAIN RATED 7-10 Potassium Chloride 20 meq
[2021-11-06 07:27] LABS: Osmolality, Urine 664 mOsm/kg (50-1200)
[2021-11-06] MEDS: POTASSIUM CHLORIDE 20 MEQ TABLET.ER PO (09:18)
[2021-11-06 09:19] VITALS: PULSE 70
[2021-11-06] MEDS: METOPROLOL SUCCINATE EXT REL 50 MG TABCR PO (09:19)
[2021-11-06] MEDS: guaiFENesin 12 HR 600 MG TABCR 1200 MG PO (09:20)
[2021-11-06] MEDS: LOSARTAN POTASSIUM 50 MG TABLET PO (09:20)
[2021-11-06] MEDS: CITALOPRAM HYDROBROMIDE 20 MG TABLET 40 MG PO (09:21)
[2021-11-06] MEDS: ACETAMINOPHEN 325 MG TABLET 650 MG PO (09:35)
--- NOTE | 2021-11-06 11:50 | PCNFU ---
Nutrition Follow-Up Complete: Inadequate Oral Intake as related to Nausea as evidenced by poor po intake reported and weight loss of 5-7 ibs in the past 3 months. Goal:Adequate Intake of at least 75% of meals/supplements. Pt is meeting goal. Continue with current goal. Pt current nutrition is high fiber diet. Nutrition recommendation: No recommendations at this time Last recorded weight is 75.4 kg - stable. Bowel Motility: +BM 11/05, no diarrhea noted Labs Reviewed: Hgb:11.1, HCT:35.2, NA:131, Cr:0.5 Meds Noted: zofran Skin: WNL Additional Notes: Pt diet advanced to high fiber, intake is 100% all meals, tolerating well. No c/o nausea, vomiting or diarrhea. Pt has no questions regarding diet. Agree with current orders. Monitor intake, wt, labs. Follow up in 7 days.
[2021-11-06 14:00] VITALS: BP 137/80; PULSE 56; RESP 18; TEMP 36.1; O2SAT 97
--- NOTE | 2021-11-06 15:11 | PM.DS ---
DS: Admitting Diagnosis Discharge Date 11/06/21 Admitting Diagnosis Abdominal pain DS: Discharge Diagnosis Discharge Diagnosis (1) Diverticulitis: Code(s): K57.92 - Diverticulitis of intestine, part unspecified, without perforation or abscess without bleeding Status: Acute (2) Hyponatremia: Code(s): E87.1 - Hypo-osmolality and hyponatremia Status: Acute (3) Ileus: Code(s): K56.7 - Ileus, unspecified Status: Acute (4) Sleep apnea: Code(s): G47.30 - Sleep apnea, unspecified Status: Acute (5) Atrial fibrillation: Code(s): I48.91 - Unspecified atrial fibrillation Status: Acute (6) Congestive heart failure: Code(s): I50.9 - Heart failure, unspecified Status: Acute (7) Essential hypertension: Code(s): I10 - Essential (primary) hypertension Status: Acute (8) 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 Please see H&P for details Hospital Course: Patient presents with complaints of abdominal pain.? CT scan showing acute sigmoid diverticulitis.? White count was slightly elevated.? She was started on Zosyn.? No fevers.? BCx NGTD. UCx negative. UTI ruled out. KUB did show dilated small bowel in the right abdomen likely adynamic ileus. Sodium dropped to 123 felt related to pain but improved. GI was consulted. Her pain slowly improved. She was started on clear liquid diet. Her ileus resolved and she was having bowel movements. She tolerated having her diet advanced. She was off her Lasix but on potassium. Will hold potassium for a few days. She overall did well and was able to be discharged home on 11/06/21. Status at Discharge Cognitive/behavioral status at discharge: Stable Time Spent with Patient Time attestation: Total time spent providing and/or coordinating discharge services: 35 minutes Time spent: Greater than 30 minutes Exam Narrative: AF 96.9 137/80 56 18 97% ra Gen - NARD Chest - CTA bilaterally, nml RR CV - RRR S1/S2 Abd - soft, ND/NT, +BS Ext - No pedal edema Psych - Nml mood and affect Skin - Warm and dry DS: Data Data Completed and Pending Labs on day of discharge: Labs from last 24 hours 11/01/21 16:48 Urine Osmolality 664 Preliminary micro results at discharge 11/01/21 12:18 Blood Culture - Preliminary Blood 11/01/21 12:18 Blood Culture - Preliminary Blood Discharge Plan Discharge Attending physician on discharge: Modesto Choe Consulting providers: Keo Chau Discharging Clinician: Modesto Choe Anticipated Discharge Date/Time: 11/06/21 15:19 Patient Disposition: Home Health Service Activity: as tolerated Diet: high fiber Discharge Instructions: Per Care Coordination Patient is current with [facility]. Please resume Home Health orders at discharge. [phone] Advance to a high fiber diet as tolerated. Please complete your antibiotic course even if you are starting to feel well. Take precautions to avoid falls. Rise slowly from a lying or sitting position. Pause before standing or walking. Check daily morning weights after voiding. Call your doctor if you gain more than 3 lb in 2 days or 5 lb in 1 week. Contact your doctor or call 911 and come to the Emergency Room if you have fevers, increasing abdominal pain or other worrisome symptoms. Avoid NSAIDs (ibuprofen, naproxen, Aleve). Tylenol is safe to take. Follow-up with your doctor in 1-2 weeks. Please call for appointment. Follow-up with Dr Chávez in 2-
== END 2021-11-06 16:25 | disposition home health service (06) | DRG 392 ==
LOC: ANHED 13:20 → ANH3MEDSUR 13:30
PROVIDERS: Family Medicine; Internal Medicine; Nurse Practitioner; Admitting Provider Student in an Organized Health Care Education/Training Program; Emergency Provider Emergency Medicine; PCP Family Medicine; Visit Provider Internal Medicine
DX: K57.32 Diverticulitis of large intestine without perforation or abscess without bleeding (principal); E87.1 Hypo-osmolality and hyponatremia; K56.0 Paralytic ileus; I50.32 Chronic diastolic (congestive) heart failure; I48.91 Unspecified atrial fibrillation; I11.0 Hypertensive heart disease with heart failure; Z20.822 Contact with and (suspected) exposure to COVID-19; D13.2 Benign neoplasm of duodenum; F41.8 Other specified anxiety disorders; G47.33 Obstructive sleep apnea (adult) (pediatric); E78.2 Mixed hyperlipidemia; M47.816 Spondylosis without myelopathy or radiculopathy, lumbar region; E55.9 Vitamin D deficiency, unspecified; I34.0 Nonrheumatic mitral (valve) insufficiency; E86.0 Dehydration; Z86.018 Personal history of other benign neoplasm; Z91.14 Patient's other noncompliance with medication regimen
CPT/HCPCS: 36415; 74019; 74177; 80048; 80053; 80069; 80307; 81001; 82570; 83605; 83690; 83735; 83935; 84133; 84295; 84300; 84484; 85025; 87040; 87086; 87088; 93005; 96361; 96365; 96366; 96367; 96375; 96376; 99285; A9270; C9803; G0378; J0131; J2405; J2543; J7030; Q9967; U0003; U0005

== ENCOUNTER 2021-11-09 11:58 | Outpatient (RCR) | payer MEDICARE, OTHER, SELFPAY ==
[2021-11-09 12:39] LABS: Anion Gap 11 mmol/L (8-16); Blood Urea Nitrogen 7 mg/dL (7-17); Calcium 8.9 mg/dL (8.4-10.2); Carbon Dioxide 31 mmol/L (22-30); Chloride 92 mmol/L (98-107); Estimated Glomerular Filt Rate > 60; Glucose 120 mg/dL (65-110); Potassium 3.4 mmol/L (3.4-5.0); Sodium 134 mmol/L (137-145)
== END 2022-02-07 23:59 | disposition home or self-care (01) ==
LOC: ANHLAB 11:58
PROVIDERS: PCP Family Medicine; Visit Provider Family Medicine
DX: E87.1 Hypo-osmolality and hyponatremia (principal)
CPT/HCPCS: 36415; 80048

== ENCOUNTER → 2021-12-26 14:43 | Outpatient (CLI) | payer MEDICARE, OTHER, SELFPAY ==
--- NOTE | ~2021-12-26 | DEXA_ITS ---
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 Exam Date: December 26, 2021 Accession number: [id number] Bone Density: Region BMD T-score Z-score Classification AP Spine (L1, L2) 1.157 1.6 3.6 Normal Femoral Neck (Left) 0.670 -1.6 0.2 Osteopenia Total Hip (Left) 0.943 0.0 1.5 Normal Femoral Neck (Right) 0.743 -1.0 0.8 Normal Total Hip (Right) 0.896 -0.4 1.1 Normal Total Hip Mean 0.920 -0.2 1.3 Normal World Health Organization criteria for BMD impression classify patients as: Normal (T-score at or above -1.0), Osteopenia (T-score between -1.0 and -2.5), or Osteoporosis (T-score at or below -2.5). 10-year Fracture Risk: FRAX not reported because: Prior hip or vertebral fracture Previous Exams: Region Exam Age BMD T-score BMD Change BMD Change Date g/cm2 vs Baseline vs Previous AP Spine(L1, L2) 12/26/2021 71 1.157 1.6 0.111* 0.231* 05/21/2018 67 0.926 -0.5 -0.120* -0.107* 02/02/2013 62 1.033 0.5 -0.013 -0.013 05/31/2006 55 1.046 0.6 Total Hip(Left) 12/26/2021 71 0.943 0.0 -0.112* -0.061* 05/21/2018 67 1.004 0.5 -0.051* -0.097* 02/02/2013 62 1.101 1.3 0.046* 0.046* 05/31/2006 55 1.054 0.9 Total Hip(Right) 12/26/2021 71 0.896 -0.4 -0.158* -0.045* 05/21/2018 67 0.941 0.0 -0.113* -0.106* 02/02/2013 62 1.047 0.9 -0.007 -0.007 05/31/2006 55 1.054 0.9 *Denotes significance at 95% confidence level, LSC for AP Spine = 0.022 g/cm2, LSC for Total Hip = 0.027 g/cm2 Clinical Information Provided by Patient: Have had a previous hip or vertebral fracture Has had a low trauma fracture Has used the following medications: Vitamin D, MTV Patient maximum height was 62.5 Menopause Age: 51 Drinks caffeinated beverages Onset of menses at age 13 Number of children 1 Impression: The patient has low bone mass, based on the Left Femoral Neck T-score. The patient has risk factors, including: previous fracture. The BMD for the Total Hip(Left) decreased, changing by -0.061 since the last DXA exam. The BMD for the Total Hip(Right) decreased, changing
== END ==
PROVIDERS: PCP Family Medicine; Visit Provider Family Medicine
DX: Z78.0 Asymptomatic menopausal state (principal); M85.88 Other specified disorders of bone density and structure, other site
CPT/HCPCS: 77080

== ENCOUNTER → 2022-09-27 13:42 | Outpatient (CLI) | payer MEDICARE, OTHER, SELFPAY ==
--- NOTE | ~2022-09-27 | MR_ITS ---
MRI of the lumbar spine Clinical History: Spondylosis Technique: Axial T2-weighted images, and sagittal T1-weighted, T2-weighted, and T2 fat-sat images wer e acquired. Findings: There is no fracture of the lumbar spine. There is minimal grade 1 retrolisthesis of L1 ove r L2. There are reactive marrow signal changes, most notably about the L1-L2 disc space, due to under lying areas of degenerative disc disease. At L1-L2, there is disc ossify complex and mild to moderate facet arthropathy. No shimon central canal stenosis. There is moderate left neural foraminal narrowing. Right neural foramen preserved. At L2-L3, there is degenerative disc narrowing without significant disc bulge or herniation. There is moderate to advanced facet arthropathy. No central canal stenosis or definite neural foraminal narro wing. At L3-L4, there is degenerative disc narrowing with mild diffuse disc bulge and moderate to advanced facet arthropathy. No central canal stenosis. There is moderate right neural foraminal narrowing and mild left neural foraminal narrowing. At L4-L5, there is moderate degenerative disc narrowing with mild diffuse disc bulge. There is modera te to advanced facet arthropathy. No central canal stenosis. There is mild to moderate right neural f oraminal narrowing and mild left neural foraminal narrowing. At L5-S1, there is advanced degenerative disc disease. There is no disc bulge or herniation. There is mild to moderate facet arthropathy. No central canal stenosis. There is mild bilateral neural forami nal narrowing. Paravertebral soft tissues are unremarkable. Impression: Moderate degenerative spondylosis overall, as detailed above. Reviewed, dictated and finalized at location M. Impression: Moderate degenerative spondylosis overall, as detailed above.
== END ==
PROVIDERS: PCP Family Medicine; Visit Provider Physician Assistant
DX: M47.16 Other spondylosis with myelopathy, lumbar region (principal)
CPT/HCPCS: 72148

== ENCOUNTER 2023-03-07 08:19 | Outpatient (CLI) | payer MEDICARE, OTHER, SELFPAY ==
--- NOTE | ~2023-03-07 | CT_ITS ---
CT Scan of the Chest without Contrast: Clinical Indication: Dyspnea Technique: Contiguous sections were acquired throughout the chest without intravenous contrast. Dose reduction technique was used on this scan by utilizing automated exposure control and iterative recon struction technique. The dose-length product (DLP) was 318.06 mGy-cm. Findings: Mildly prominent mediastinal lymph nodes are present, nonspecific. No axillary lymphadenopathy. Coron john artery calcifications are present. No aortic aneurysm. There is no evidence of pleural or pericardial effusion. There is probable very subtle/mild mosaic attenuation pattern of the lungs, especially the upper lobe s. No pulmonary nodule evident. Images through the upper abdomen reveal probable prior fundoplication. Impression: Probable very subtle mosaic attenuation pattern of the lungs. Diagnostic considerations include bronc hiolitis, asthma, hypersensitivity pneumonitis, minimal pulmonary edema, chronic PE, and chronic inte rstitial disease. Clinical correlation is required. Mildly prominent mediastinal lymph nodes, nonspecific, most likely reactive. Reviewed, dictated and finalized at location . 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 Diagnostic consid erations include bronchiolitis, asthma, hypersensitivity pneumonitis, minimal p ulmonary edema, chronic PE, and chronic interstitial disease. Clinical correlat ion is required. Mildly prominent mediastinal lymph nodes, nonspecific, most likely reactive.
--- NOTE | 2023-03-12 08:32 | WPDPFTINT ---
PFT Procedure Performed PFT Procedure Performed Spirometry with Pre/Post Bronchodilator Diffusing Cap (DLCO) Flow Vol Loop PFT Interpretation DOS: 03/07/2023 REQUESTING: Radha Hernandez PA-C REASON FOR TESTING: shortness of breath PULMONARY FUNCTION TESTS Repeatability of the FEV1 maneuver is Grade A. The lung volumes were unable to be completely obtained because the patient although showing good effort was unable to provide reproducible plethysmography. Spirometry: FEV1 is 1.17 L, 62%, mildly decreased. FVC is 1.51 L, 63%, mildly reduced. The FEV1/FVC ratio is 77%, normal. After bronchodilator administration, there was an 8% increase in the FEV1, 1.27 L, 67% still reduced. After bronchodilator there is a 6% increase in the FVC, 1.6 L, 66%, reduced. The FEV1/ FVC ratio is 79%. Lung volumes: Total lung capacity was not obtainable. Airway resistance is increased, 26.98, 1381% predicted. Diffusion: DLCO 10.4, 55%, moderately reduced. DLCO/VA is 4.64, 104%, normal. Flow volume loop: Restrictive pattern IMPRESSION: Mild decrease in FEV1 and FVC without airflow obstruction, probable restrictive impairment although this could not be confirmed with lck of lung volumes; moderate diffusion impairment that corrects for alveolar volume. Lack of response to bronchodilator should not preclude use if clinically indicated. No prior studies for comparison. Poonam Vasquez MD
--- NOTE | 2023-03-12 08:38 | WPDSIXMINUTE ---
Six Minute Walk Procedure Procedure Performed Pulmonary Stress Test (6 min walk) Six Minute Walk Six Minute Walk: DATE OF SERVICE: 03/07/2023 REQUESTING: Radha Hernandez PA-C REASON FOR TESTING: shortness of breath SIX MINUTE WALK This test was conducted per ATS guidelines. The initial saturation was 93%, and initial heart rate was 61 beats per minute. The patient walked without stopping, completing 600 ft/ 182.8 m. The saturation at the end of testing was 92%, and the heart rate was 96 beats per minute. the lowest saturation during the study was transiently 88%. IMPRESSION: This study shows a mild desaturation without shimon hypoxemia. Lowest saturation was transiently 88%. Distance walked is less than expected for age. The patient did not require supplemental oxygen with exertion. Poonam Vasquez MD
== END 2023-03-07 08:20 | disposition home or self-care (01) ==
PROVIDERS: PCP Family Medicine; Visit Provider Physician Assistant
DX: R06.09 Other forms of dyspnea (principal); R94.2 Abnormal results of pulmonary function studies; R91.8 Other nonspecific abnormal finding of lung field
CPT/HCPCS: 71250; 94060; 94618; 94729

== ENCOUNTER 2023-07-03 13:47 | Outpatient (CLI) | payer MEDICARE, OTHER, SELFPAY ==
--- NOTE | ~2023-07-03 | US_ITS ---
EXAMINATION: US venous doppler [facility] DATE: 07/03/2023 14:45 INDICATION: Localized superficial lump at the anterior left lower leg. TECHNIQUE: Grayscale ultrasound images without and with compression and Doppler ultrasound images of the left lower extremity veins were obtained. COMPARISON: None. FINDINGS: The visualized portions of left common femoral vein, profunda (deep) femoral vein, femoral vein, popl iteal vein, peroneal veins, posterior tibial veins, gastrocnemius vein and greater saphenous vein out flow are patent. There is a 2.5 x 1.1 x 2.4 cm ovoid very hypoechoic subcutaneous lesion with posteri or acoustic enhancement at the region of concern consistent with a complex fluid collection. Given th e provided history of a palpable abnormality occurring post fall this would be most consistent with a posttraumatic hematoma. IMPRESSION: 1. No deep venous thrombosis in the left lower limb. 2. Palpable abnormality corresponds to a 2.5 x 1.1 x 2.4 cm complex subcutaneous fluid collection whi ch given the provided history would be most consistent with a posttraumatic hematoma. Reviewed, dictated and finalized at location A. IMPRESSION: 1. No deep venous thrombosis in the left lower limb. 2. Palpable abnormality corresponds to a 2.5 x 1.1 x 2.4 cm complex subcutaneou s fluid collection which given the provided history would be most consistent wi th a posttraumatic hematoma.
--- NOTE | ~2023-07-03 | XR_ITS ---
EXAMINATION: XR abdomen/kub 1V DATE: 07/03/2023 14:18 INDICATION: Kidney stones. TECHNIQUE: A supine view of the abdomen on 2 radiographs was obtained. COMPARISON: None. FINDINGS: There are no dilated loops of bowel. Calcifications in the pelvis are likely phleboliths. T here are surgical clips in the abdomen. IMPRESSION: 1. No visible urolithiasis. Reviewed, dictated and finalized at location A. IMPRESSION: 1. No visible urolithiasis.
[2023-07-03 15:09] LABS: Alanine Aminotransferase 16 U/L (6-35); Alkaline Phosphatase 92 U/L (38-126); Anion Gap 3 mmol/L (4-12); Aspartate Amino Transferase 27 U/L (14-36); Bilirubin,Total 0.6 mg/dL (0.2-1.3); Blood Urea Nitrogen 13 mg/dL (7-17); Calcium 9.2 mg/dL (8.4-10.2); Carbon Dioxide 30 mmol/L (22-30); Chloride 97 mmol/L (98-107); Estimated Glomerular Filt Rate > 60; Glucose 97 mg/dL (65-110); Potassium 4.3 mmol/L (3.4-5.0); Sodium 130 mmol/L (137-145)
== END 2023-07-03 13:48 | disposition home or self-care (01) ==
LOC: ANHIMG 13:53
PROVIDERS: PCP Family Medicine; Visit Provider Physician Assistant Medical
DX: R60.0 Localized edema (principal); E78.2 Mixed hyperlipidemia
CPT/HCPCS: 36415; 74018; 80053; 93971

== ENCOUNTER 2023-07-18 12:50 | Outpatient (RCR) | payer MEDICARE, OTHER, SELFPAY ==
--- NOTE | 2023-07-18 14:03 | OPREHPOC ---
Outpatient Therapy Plan of Care This is a Multidisciplinary Plan of Care that may contain components documented by all disciplines (PT, OT, and ST.) PT Problem 1 PT Problem #1 Knowledge Deficit PT Goal 1 Goal *good safety awareness with mobility PT Problem 2 PT Problem #2 Impaired Vestibular Syste PT Goal 1 Goal improve vestibular system, to improve mobility and activity level: 1* Dizziness Handicap Index rating of 20/100 2* no dizziness with supine/sit/stand transfer
--- NOTE | 2023-07-18 14:04 | OPREHPOC ---
Outpatient Therapy Plan of Care This is a Multidisciplinary Plan of Care that may contain components documented by all disciplines (PT, OT, and ST.) PT Problem 1 PT Problem #1 Knowledge Deficit PT Goal 1 Goal *good safety awareness with mobility Target Visit 8 PT Problem 2 PT Problem #2 Impaired Vestibular Syste PT Goal 1 Goal improve vestibular system, to improve mobility and activity level: 1* Dizziness Handicap Index rating of 20/100 2* no dizziness with supine/sit/stand transfer Target Visit 8
--- NOTE | 2023-07-18 14:04 | PTOPEVAL1 ---
Assessment and note entered by Samina Mayfield, PT Evaluation Information Assessment Status Evaluation Diagnosis dizziness, vestibular rehab Onset April 2023 Subjective Information in April, staying at her son's home, fell getting out of their bed which was higher and had to use a step stool, fell and hit her head- did not lose consciousness; was dizzy and problems walking and did not want to drive; dizziness eased since fall, but still have some dizziness; have not been dizzy for the past few days; monitor BP with her apple watch: reports it is usually on the lower range, but could not tell me the #'s for sure with discussion of her meds, stated she is not always good to take them had not taken any meds or eaten anything today-- 1:00 appt for PT. EVALUATION: Risk factors for dizziness: with PMHx: low sodium with blood work; incident of severe dizziness and vomiting; cardiac issues, multiple meds, allergies ; vision- recent eye exam, have new script for distance glasses, have had cataract surgery; SOB, pulmonary HTN; hearing is less--problems hearing in crowds and distinguishing words; symptoms: off balance when walking, when get up out of bed, have to move slowly, feel like head going around and have to grab something to hold on to; fullness in her ears; decrease symptoms: sit down and rest, clears in few minutes; BP: sitting 103/65; standing 77/42; supine 126/70; return to sitting 110/52; [place] and Horizontal canal testing were negative for BPPV; eye tracking and occulomotor testing negative; during eval onset of dizziness only with supine to sit transfer; Reported Pain Level Pain Score 0: Self Report Additional Pain Score Comments no neck pain or headaches, but have low ba
--- NOTE | 2023-08-28 10:18 | PTOPDC ---
Assessment and note entered by Samina Mayfield, PT Discharge PT Assessment Status Discharge - Pt Not Present Diagnosis dizziness, vestibular rehab Onset April 2023 Subjective Information pt was not seen this date. Assessment PT Clinical Summary Ms. Benitez received the PT evaluation on July 17 and did not return for further treatment. Discharge PT. The goals were not addressed. Plan of Care PT Services Indicated No
== END 2023-08-28 11:07 | disposition home or self-care (01) ==
LOC: ANHPT 12:50
PROVIDERS: PCP Family Medicine; Visit Provider Physician Assistant Medical
DX: R42 Dizziness and giddiness (principal)
CPT/HCPCS: 97162; 97530

== ENCOUNTER 2023-10-01 14:08 | Outpatient (CLI) | payer MEDICARE, OTHER, SELFPAY ==
--- NOTE | ~2023-10-01 | CT_ITS ---
EXAMINATION: CT chest abdomen pelvis w con DATE: 10/01/2023 14:53 INDICATION: Gastroesophageal reflux disease. Left lower quadrant abdominal pain. TECHNIQUE: Computed tomography (CT) of the chest, abdomen, and pelvis was performed with 100 mL Omnip aque-350 intravenous contrast. Automated exposure control and iterative reconstruction technique were employed. The dose-length product was 1089.35 mGy-cm. COMPARISON: Chest CT dated 03/07/[address] abdomen and pelvis dated 11/01/2021 FINDINGS: CHEST CT: Again seen is mosaic attenuation scattered throughout both lungs with decreased relative size of the vascularity within the regions of lucency which raises the possibility of chronic thromboembolic dise ase. There is enlargement of the central pulmonary arteries consistent with pulmonary arterial hypert ension. No evident pulmonary emboli. No septal line thickening to suggest pulmonary edema. No focal c onsolidation to suggest pneumonia. No pleural effusion. Mild cardiomegaly. Atherosclerotic coronary a rtery calcifications. Median sternotomy and mitral valve repair. No pericardial effusion. Thoracic ao rta is normal in caliber with no dissection. No pathologically enlarged thoracic lymphadenopathy. Sev ere thoracic spondylosis. ABDOMEN/PELVIS CT: Postoperative change of prior Saleem fundoplication. Cholecystectomy clips the gallbladder fossa. 2.0 cm low-attenuation hemangioma in the left hepatic lobe with characteristic peripheral discontiguous puddling of contrast on the prior CT. Unchanged small focus of focal hepatic steatosis along the liga mentum teres. Splenomegaly measuring 20.6 cm in maximal length. Pancreas, bilateral adrenal glands an d kidneys are normal. There is moderate colonic diverticulosis with a descending and sigmoid colon pr edominance but without adjacent inflammatory change to suggest diverticulitis. Normal appendix. No atif wel obstruction. No free intraperitoneal gas or fluid. Partially decompressed bladder, anteverted tad ary and bilateral adnexa are unremarkable. No pathologically enlarged abdominal or pelvic lymphadenop athy. Severe lumbar spondylosis. IMPRESSION: 1. Mosaic attenuation in the lungs with associated decreased relative size of the associated vascular ity which suggests sequela of chronic thromboembolic disease which could also account for the enlarge ment of the central pulmonary arteries consistent with pulmonary arterial hypertension. Differential for a mosaic attenuation also include air trapping the setting of smaller artery disease including br onchiolitis, asthma or hypersensitivity pneumonitis. The identical pattern when compared with the erasto or imaging would likely consistent either pulmonary edema or pneumonia. 2. Postoperative change of prior Saleem fundoplication, cholecystectomy and mitral valve repair. 3. Marked nonspecific splenomegaly measuring 20.6 cm in length. 4. Diverticulosis. Reviewed, dictated and finalized at location B. IMPRESSION: 1. Mosaic attenuation in the lungs with associated decreased relative size of t he associated vascularity which suggests sequela of chronic thromboembolic dise ase which could also account for the enlargement of the central pulmonary arter ies consistent with pulmonary arterial hypertension. Differential for a mosaic attenuation also include air trapping the setting of smaller artery disease inc luding bronchiolitis, asthma or hypersensitivity pneumonitis. The identical pat tern when compared with the prior imaging would likely consistent either pulmon john edema or pneumonia. 2. Postoperative change of prior Saleem fundoplication, cholecystectomy and sam ral valve repair. 3. Marked nonspecific splenomegaly measuring 20.6 cm in length. 4. Diverticulosis.
[2023-10-01 14:39] LABS: Estimated Glomerular Filt Rate 55
== END 2023-10-01 14:09 ==
LOC: MICIMG 14:13
PROVIDERS: PCP Family Medicine; Visit Provider Internal Medicine Gastroenterology
DX: K57.92 Diverticulitis of intestine, part unspecified, without perforation or abscess without bleeding (principal); K21.9 Gastro-esophageal reflux disease without esophagitis; Z80.0 Family history of malignant neoplasm of digestive organs; R13.12 Dysphagia, oropharyngeal phase; R91.8 Other nonspecific abnormal finding of lung field; Z98.890 Other specified postprocedural states; R16.1 Splenomegaly, not elsewhere classified
CPT/HCPCS: 71260; 74177; Q9967

== ENCOUNTER 2023-10-22 09:52 | Outpatient (CLI) | payer MEDICARE, OTHER, SELFPAY ==
--- NOTE | ~2023-10-22 | MMUS_ITS ---
EXAMINATION: MM diagnostic lisset BI w [place], US breast BI limited HISTORY: Palpable breast abnormalities. TECHNIQUE: Additional 3-D tomosynthesis images of the breasts were performed and synthetic 2-D images were generated. CAD analysis was submitted and interpreted. High resolution limited bilateral breast ultrasound was performed. COMPARISON: Comparison to multiple prior studies sequentially, with oldest reviewed study dated 05/21. BREAST PARENCHYMAL COMPOSITION: Not dense: There are scattered areas of fibroglandular density. FINDINGS: MAMMOGRAPHIC FINDINGS: The breasts are stable. No new masses, calcifications or architectural distortion in either breast to suggest malignancy ULTRASOUND: Limited bilateral breast ultrasound: Normal heterogeneous echotexture without focal solid or cystic m ass. IMPRESSION: 1. No evidence for malignancy in either breast. 2. Routine yearly screening mammogram and regular clinical breast examination are recommended. BI-RADS Category 2: Benign finding(s). Reviewed, dictated and finalized at location B. IMPRESSION: 1. No evidence for malignancy in either breast. 2. Routine yearly screening mammogram and regular clinical breast examination a re recommended. BI-RADS Category 2: Benign finding(s).
== END 2023-10-22 09:53 ==
PROVIDERS: PCP Family Medicine; Visit Provider Family Medicine
DX: N63.23 Unspecified lump in the left breast, lower outer quadrant (principal); N63.14 Unspecified lump in the right breast, lower inner quadrant; Z86.018 Personal history of other benign neoplasm
CPT/HCPCS: 76642; 77062; 77066; G0279

== ENCOUNTER 2023-11-25 19:55 | Emergency (ER) | payer MEDICARE, OTHER, SELFPAY ==
--- NOTE | ~2023-11-25 | XR_ITS ---
EXAMINATION: XR hand RT min 3V DATE: 11/25/2023 21:04 INDICATION: Right hand laceration. TECHNIQUE: 4 views of right hand were obtained. COMPARISON: Right wrist radiographs 02/14/2017 FINDINGS: Bone alignment is normal. No fracture. There is severe osteoarthritis of triscaphe joint an d mild osteoarthritis of first carpometacarpal joint and some of the interphalangeal joints. IMPRESSION: 1. Polyarticular osteoarthritis. Reviewed, dictated and finalized at location A.
[2023-11-25 20:22] VITALS: BP 96/44; PULSE 67; RESP 18; TEMP 36.4; O2SAT 95
[2023-11-25 20:34] VITALS: BP 109/60; PULSE 66; RESP 16; TEMP 36.9; O2SAT 92
--- NOTE | 2023-11-25 20:41 | ED.FALL ---
HPI - Fall General Chief Complaint: Fall Stated Complaint: fall Time Seen by Provider: 11/25/23 20:32 History of Present Illness HPI Narrative: 72-year-old female presents emergency department for mechanical fall that occurred prior to arrival. Patient states she was walking out of a restaurant with food and bottle 1 in her hand when her shoe got caught on the concrete and she fell for and landed on the ground. She denies hitting her head or losing consciousness. She is reporting lacerations to her right hand. Bleeding is controlled. Last Tdap unknown. She denies headache or vision changes, chest pain or shortness of breath, lightheadedness or dizziness. Denies neck pain or back pain, other injuries acquired. She is anticoagulated on Xarelto for history of AFib. Patient does have soft blood pressure in triage of 96/44, however she does admit to having history of low blood pressure. Related Data Home Medications Medication Instructions Recorded Confirmed ascorbic acid (vitamin C) 500 mg 500 mg PO DAILY 10/07/19 09/17/23 tablet (Vitamin C) guaifenesin 1,200 mg tablet, 1,200 mg PO BID PRN Congestion 09/07/20 09/17/23 extended release 12 hr (Mucinex) zinc 50 mg tablet 50 mg PO DAILY 09/07/20 09/17/23 furosemide 40 mg tablet 40 mg PO DAILY 11/01/21 09/17/23 methocarbamol 500 mg tablet 500 mg PO TID 02/20/23 09/17/23 Allergies Allergy/AdvReac Type Severity Reaction Status Date / Time morphine Allergy Unknown Itching Verified 09/17/23 14:08 lisinopril AdvReac Unknown Cough Verified 09/17/23 14:08 Review of Systems Review of Systems: All systems reviewed & are unremarkable except as noted in HPI and below PMFSH Past Medical History Medical History Anxiety Atrial fibrillation Essential hypertension H/O iron deficiency anemia Hyperlipidemia, unspecified Lumbar spondylosis Mitral valve disease Mixed hyperlipidemia Need for prophylactic antibiotic Nocturnal hypoxemia Prolactinoma Tibia fracture Vitamin D deficiency Surgical History Surgical History H/O cardiac radiofrequency ablation H/O maze procedure History of mitral valve repair Family History Family History Mother Family history of diabetes mellitus in first degree relative Family history of glaucoma Family history of congestive heart failure Family history of cataracts Diabetes mellitus Hypertension Father Family history of arthritis Cerebrovascular accident Asthma Esophageal cancer Hypertension Skin cancer Sibling Diabetes mellitus Skin cancer Sibling Diabetes mellitus Skin cancer Sibling Diabetes mellitus Social History Social History Social History: the patient lives at home with her Gildardo . her son is the durable assistant prosecuting attorney for healthcare. The patient is retired. She has 3 children. She is a lifelong nonsmoker. She drinks approximately 14 alcoholic drinks a week. She denies any marijuana or illicit drug use. Code status full code Smoking status: Never smoker Second hand tobacco smoke exposure: Yes Alcohol intake: current Drinks per week: 14 Substance use: never Substance use type: does not use Lack of Transportation: No Lack of Food: Never True Current Housing: I Have Housing Concerned About Future Housing: No Difficulty Paying Gas/Electric Bills: No Difficulty Paying for Meds: No Currently Unemployed: No Education: Bachelor's Degree Difficulty w/ Childcare or Family Care: No Living arrangements: with family Spiritual care concerns: No Exam Narrative: GENERAL: Well-appearing, well-nourished, and in no acute distress. HEAD: Normocephalic, atraumatic. EYES: PERRLA and EOMI. ENT: Nares clear, no rhinorrhea or epistaxis. Mucous m
[2023-11-25 21:05] VITALS: BP 108/65; PULSE 64; RESP 20; O2SAT 91
[2023-11-25 21:16] VITALS: BP 121/65; PULSE 62; RESP 20; O2SAT 91
[2023-11-25] MEDS: TETANUS,DIPHTHERIA,AC PERTUSSIS ADULT (0.5 ML) BOOSTRIX IM (22:06)
== END 2023-11-25 22:17 | disposition home or self-care (01) ==
PROVIDERS: Emergency Provider Physician Assistant; PCP Family Medicine
DX: S61.411A Laceration without foreign body of right hand, initial encounter (principal); I48.91 Unspecified atrial fibrillation; Z79.01 Long term (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; F41.9 Anxiety disorder, unspecified; I10 Essential (primary) hypertension; E78.5 Hyperlipidemia, unspecified; W01.0XXA Fall on same level from slipping, tripping and stumbling without subsequent striking against object, initial encounter; Z23 Encounter for immunization
CPT/HCPCS: 12001; 73130; 90471; 90715; 99283

== ENCOUNTER 2024-03-03 15:40 | Emergency (ER) | payer MEDICARE, OTHER, SELFPAY ==
--- NOTE | ~2024-03-03 | XR_ITS ---
XR chest 2V Ordering provider: Henrry Meadows APRN History: 73 years Female with . coug, chest congestion x 5 days. . Comparison: April 05, 2021 FINDINGS: MEDIASTINUM: The cardiac silhouette is moderately enlarged. Congestive cm. Postoperative changes in the mediastinum. LUNGS: No effusions or pneumothorax. Infiltrate is seen in the right lower lobe suggestive of pneumon ia. Follow-up advised. Bilateral interstitial changes suggestive of cardiac decompensation and pulmon john edema. OTHER: No free air under the diaphragm. Right shoulder arthroplasty. IMPRESSION: Cardiomegaly with cardiac decompensation and pulmonary edema. Right basilar atelectasis versus pneumonia. Reviewed, dictated and finalized at location A. [facility] C[facility] PROVIDER
--- NOTE | 2024-03-03 15:43 | ED.URI ---
HPI - URI/Sore Throat General Chief Complaint: Upper Respiratory Infection Stated Complaint: Cough Time Seen by Provider: 03/03/24 15:42 Source: patient Mode of arrival: ambulatory Limitations: no limitations History of Present Illness HPI Narrative: Adriana is a 73-year-old female patient presenting to the clinic today with complaints of a cough, nasal congestion, and chest congestion x5 days. She reports no known fever or chills. Has a nonproductive cough at this time. History of sleep apnea. Denies any history of COPD or asthma. Is a nonsmoker MD elicited complaint: cough, nasal congestion and other (Chest congestion) Related Data Home Medications Medication Instructions Recorded Confirmed ascorbic acid (vitamin C) 500 mg 500 mg PO DAILY 10/07/19 03/03/24 tablet (Vitamin C) guaifenesin 1,200 mg tablet, 1,200 mg PO BID PRN Congestion 09/07/20 03/03/24 extended release 12 hr (Mucinex) zinc 50 mg tablet 50 mg PO DAILY 09/07/20 03/03/24 furosemide 40 mg tablet 40 mg PO DAILY 11/01/21 03/03/24 Allergies Allergy/AdvReac Type Severity Reaction Status Date / Time morphine Allergy Unknown Itching Verified 03/03/24 15:48 lisinopril AdvReac Unknown Cough Verified 03/03/24 15:48 Review of Systems Review of Systems: Pertinent positives per HPI. Patient denies any fever, chills, rash, headache, visual changes, dizziness, chest pain, palpitations, nausea, vomiting, diarrhea, constipation, abdominal pain, or any urinary issues. [facility] Past Medical History Medical History Anxiety Atrial fibrillation Essential hypertension H/O iron deficiency anemia Hyperlipidemia, unspecified Lumbar spondylosis Mitral valve disease Mixed hyperlipidemia Need for prophylactic antibiotic Nocturnal hypoxemia Prolactinoma Tibia fracture Vitamin D deficiency Surgical History Surgical History H/O cardiac radiofrequency ablation H/O maze procedure History of mitral valve repair Family History Family History Mother Family history of diabetes mellitus in first degree relative Family history of glaucoma Family history of congestive heart failure Family history of cataracts Diabetes mellitus Hypertension Father Family history of arthritis Cerebrovascular accident Asthma Esophageal cancer Hypertension Skin cancer Sibling Diabetes mellitus Skin cancer Sibling Diabetes mellitus Skin cancer Sibling Diabetes mellitus Social History Social History Social History: the patient lives at home with her Gildardo . her son is the durable mergers and acquisitions attorney for healthcare. The patient is retired. She has 3 children. She is a lifelong nonsmoker. She drinks approximately 14 alcoholic drinks a week. She denies any marijuana or illicit drug use. Code status full code Smoking status: Never smoker Second hand tobacco smoke exposure: Yes Alcohol intake: current Drinks per week: 14 Substance use: never Substance use type: does not use Lack of Transportation: No Lack of Food: Never True Current Housing: I Have Housing Concerned About Future Housing: No Difficulty Paying Gas/Electric Bills: No Difficulty Paying for Meds: No Currently Unemployed: No Education: Bachelor's Degree Difficulty w/ Childcare or Family Care: No Living arrangements: with family Spiritual care concerns: No Comments At the time of my signature, I reviewed and agree with the nursing past medical, surgical, social, and family history. There is no relevant family history pertinent to the patient complaint. Exam Narrative: General: Well-developed, well nourished, in no apparent distress Head: Normocephalic, atraumatic Eyes: Pupils equally round and reactive to light bilaterally, EOM intact, sclera and conjunctive clear, no discharge, lids normal Ears: TMs intact and clear, ear canals clear, no drainage, grossly hearing normal. Nose: Nares patent, no discharge, no inflammation, no sinus tenderness. Mouth: Oral pharynx without lesions or masses, good dentition, MMM. Neck: Supple, trachea midline, no enlargement of anterior or posterior cervical nodes, no thyroid masses or goiter palpable. Cardio: Regular rate and rhythm, s1 and s2 normal, no murmur appreciated. Resp: Faint inspiratory wheezing over the right upper lobe, no rhonchi, rales,or rubs Course Course Emergency Course: Portions of this record may have been created with voice recognition software. Level of Care: Express Care Visit Vital Signs Vital signs: Vital signs reviewed MDM - URI/Sore Throat MDM Narrative Medical decision making narrative: At the time of visit patient is resting comfortably on the exam table. Patient appears to be nontoxic. Diagnostics: Chest x-ray was performed and shows atelectasis versus right lower lobe pneumonia. Also shows cardiomyopathy with possible pulmonary edema. Plan: Patient has follow-up appointment with her PCP tomorrow. Will cover for a lower respiratory tract infection and give doxycycline. Patient already has albuterol inhaler but will add Mucinex. Supportive measures were discussed with the patient and they voiced understanding discharge instructions and agrees to treatment plan. Return precautions reviewed Differential Diagnosis Differential diagnosis: Likely upper respiratory infection, otitis media, sinusitis, viral infection, bronchitis, influenza, pharyngitis and other (COVID) Imaging Data Radiologist's impression: ITS Impressions Chest X-Ray 03/03/24 16:10 IMPRESSION: Cardiomegaly with cardiac decompensation and pulmonary edema. Right basilar atelectasis versus pneumonia. Discharge Plan Discharge Clinical Impression: Acute lower respiratory tract infection, Bronchitis Patient Disposition: Home, Self-Care Condition: Stable Instructions: Antibiotic Form, Acute Bronchitis (ED) Additional Instructions: Take prescription medications only as prescribed-continue the use of your albuterol inhaler, doxycycline, and take Mucinex Continue current medications as prescribed Increase fluids and stay well hydrated Tylenol/motrin for pain/fever Flonase and OTC antihistamines as directed Vicks vapor rub to open sinuses Sinus rinses for congestion Cepacol spray, cough drops, throat lozenges, warm tea with honey/lemon, gargle salt water to soothe throat BRAT diet for diarrhea Clear liquids x 24 hours then advance as tolerated for nausea/vomiting Go to the ED if you develop a worsening in your condition- high fever not controlled by Tylenol or Motrin, dehydration, weakness, lethargy, shortness of breath, or chest pain. Follow up with your PCP in 3-5 days if symptoms persist. Prescriptions: New guaifenesin [Mucinex] 600 mg tablet extended release 12hr 600 mg PO BID 10 Days Qty: 20 0RF doxycycline monohydrate 100 mg capsule 100 mg PO BID 7 Days Qty: 14 0RF No Action valacyclovir [Valtrex] 1 gram tablet 2,000 mg PO Q12H Qty: 4 4RF Rx Instructions: for 1 day ascorbic acid (vitamin C) [Vitamin C] 500 mg Tablet 500 mg PO DAILY zinc 50 mg Tablet 50 mg PO DAILY guaifenesin [Mucinex] 1,200 mg Tablet Extended Release 12hr 1,200 mg PO BID PRN (Reason: Congestion) furosemide 40 mg tablet 40 mg PO DAILY Rx Instructions: Xarelto 20 mg tablet 20 mg PO DAILY Qty: 4 0RF Hold Instructions: Resume on 10/13/19. Restart Sunday, October 13, 2019 with the evening meal Rx Instructions: must administer with evening meal oxybutynin chloride 10 mg tablet extended release 24hr See Rx Instructions .ROUTE .COMPLEX Qty: 90 2RF Dose Instruction: TAKE 1 TABLET BY MOUTH DAILY Rx Instructions: TAKE 1 TABLET BY MOUTH DAILY zolpidem [Ambien] 10 mg tablet 10 mg PO .hs PRN (Reason: insomnia) Qty: 30 2RF Rx Instructions: some times takes 1 tablet cholecalciferol (vitamin D3) [Vitamin D3] 25 mcg (1,000 unit) tablet 25 mcg PO DAILY Qty: 90 2RF citalopram [Celexa] 40 mg tablet 40 mg PO DAILY Qty: 90 1RF potassium chloride 20 mEq tablet extended release 20 meq PO DAILY Qty: 30 6RF Hold Instructions: Resume on 11/11/21. HOLD - Resume on 11/11/21 albuterol sulfate 90 mcg/actuation HFA aerosol inhaler See Rx Instructions .ROUTE .COMPLEX Qty: 8.5 3RF Dose Instruction: INHALE 1 TO 2 PUFFS BY MOUTH EVERY 4 TO 6 HOURS NEEDED FOR SHORTNESS OF BREATH OR WHEEZING Rx Instructions: INHALE 1 TO 2 PUFFS BY MOUTH EVERY 4 TO 6 HOURS NEEDED FOR SHORTNESS OF BREATH OR WHEEZING azelastine 137 mcg (0.1 %) spray,non-aerosol See Rx Instructions .ROUTE .COMPLEX Qty: 30 3RF Dose Instruction: USE 1 SPRAY IN EACH NOSTRIL EVERY 12 HOURS Rx Instructions: USE 1 SPRAY IN EACH NOSTRIL EVERY 12 HOURS metoprolol succinate 50 mg tablet extended release 24 hr See Rx Instructions .ROUTE .COMPLEX Qty: 90 3RF Dose Instruction: TAKE 1 TABLET BY MOUTH DAILY Rx Instructions: TAKE 1 TABLET BY MOUTH DAILY losartan 50 mg tablet 50 mg PO DAILY Qty: 90 1RF Follow-up/Referrals: Shannan Dennis MD [Primary Care Provider] - Time of Disposition: 16:24 Quality NIHSS Nursing Documentation ED NIHSS nursing documentation: reviewed/agree
[2024-03-03 15:49] VITALS: BP 101/69; PULSE 71; RESP 16; TEMP 36.6; O2SAT 95
[2024-03-03 15:51] VITALS: BP 101/69; PULSE 71; RESP 16; TEMP 36.6; O2SAT 95
== END 2024-03-03 16:29 | disposition home or self-care (01) ==
PROVIDERS: Emergency Provider Nurse Practitioner Family; PCP Family Medicine
DX: J22 Unspecified acute lower respiratory infection (principal); J40 Bronchitis, not specified as acute or chronic; I48.91 Unspecified atrial fibrillation; I10 Essential (primary) hypertension; I34.1 Nonrheumatic mitral (valve) prolapse; E78.2 Mixed hyperlipidemia
CPT/HCPCS: 71046; 99213; G0463

== ENCOUNTER 2024-03-19 15:19 | Emergency (ER) | payer MEDICARE, OTHER, SELFPAY ==
--- NOTE | ~2024-03-19 | XR_ITS ---
EXAMINATION: XR chest 2V DATE: 03/19/2024 17:33 INDICATION: Pulmonary edema. Fall. TECHNIQUE: Frontal and lateral views of the chest were obtained. COMPARISON: Chest 2 views 03/03/2024 FINDINGS: There is no pneumonia, pleural effusion, or pneumothorax. Cardiomegaly is noted. There are changes of heart valve replacement. There is a total right shoulder arthroplasty. Broken wires overli e the right shoulder. Surgical clips in the right upper quadrant are likely from cholecystectomy. IMPRESSION: 1. Cardiomegaly. Reviewed, dictated and finalized at location A. NCE TRUER IMPRESSION: 1. Cardiomegaly.
--- NOTE | ~2024-03-19 | XR_ITS ---
EXAMINATION: XR knee RT min 4V DATE: 03/19/2024 16:11 INDICATION: Right knee pain post fall TECHNIQUE: Anteroposterior, 2 oblique and crosstable lateral views of the right knee were obtained COMPARISON: None. FINDINGS: Alignment is normal. No fracture. Mild tricompartmental osteoarthritis at the right knee. No joint ef fusion/layering lipohemarthrosis. Likely loose osteochondral body projecting posterior to knee potent ially within a Mendoza's cyst. Mild prepatellar soft tissue swelling. IMPRESSION: 1. Mild tricompartmental osteoarthritis at the right knee. No knee joint effusion or acute osseous ab normality. Reviewed, dictated and finalized at location A. NESS ANALYST [employer]COMM[employer] IMPRESSION: 1. Mild tricompartmental osteoarthritis at the right knee. No knee joint effusi on or acute osseous abnormality.
--- NOTE | ~2024-03-19 | XR_ITS ---
EXAMINATION: XR hand LT min 3V DATE: 03/19/2024 16:11 INDICATION: Left hand pain and bruising post fall TECHNIQUE: Posteroanterior, oblique and lateral views of the left hand were obtained. COMPARISON: 01/29/2013 FINDINGS: Minimally displaced oblique extra-articular diaphyseal fracture of the left fifth proximal phalanx. P olyarticular osteoarthritis, advanced at the first carpometacarpal joint, moderate at the midcarpal, triscaphe joint, first metacarpophalangeal, first interphalangeal and second proximal interphalangeal joints and mild at the remaining interphalangeal joints. IMPRESSION: 1. Minimally displaced intra-articular diaphyseal fracture of the left fifth proximal phalanx. Reviewed, dictated and finalized at location A. ECTIVE SIGNAL SUPERINTENDENT IMPRESSION: 1. Minimally displaced intra-articular diaphyseal fracture of the left fifth pr oximal phalanx.
--- NOTE | ~2024-03-19 | XR_ITS ---
EXAMINATION: XR knee LT min 4V DATE: 03/19/2024 16:11 INDICATION: Left knee pain post fall TECHNIQUE: Anteroposterior, 2 oblique and crosstable lateral views of the left knee were obtained COMPARISON: None. FINDINGS: Interval healing is near anatomic alignment of the prior comminuted fractures of the proximal left ti claudai which is affixed with interfragmentary screw and lateral plate and screws. No acute fractures. Mi ld tricompartmental osteoarthritis left knee. Small left knee joint effusion without layering lipohem arthrosis. Mild prepatellar soft tissue swelling. IMPRESSION: 1. Old healed internally fixed proximal tibial fracture in near-anatomic alignment. 2. Small left knee joint effusion and mild prepatellar soft tissue swelling. No acute osseous abnorma lity. Reviewed, dictated and finalized at location A. NURSE IMPRESSION: 1. Old healed internally fixed proximal tibial fracture in near-anatomic alignm ent. 2. Small left knee joint effusion and mild prepatellar soft tissue swelling. No acute osseous abnormality.
--- NOTE | ~2024-03-19 | CT_ITS ---
EXAMINATION: CT brain wo con DATE: 03/19/2024 15:47 INDICATION: Head injury. Fall. TECHNIQUE: Computed tomography (CT) of the head was performed without intravenous contrast. The mA wa s adjusted according to patient size. Iterative reconstruction technique was employed. The dose-lengt h product was 605.33 mGy-cm. COMPARISON: Head CT 09/16/2021 FINDINGS: There are scattered areas of low attenuation in the cerebral white matter, which is within normal limits for the patient's age. There is no intracranial hemorrhage, acute infarction, or abnorm al intracranial mass lesion. The ventricles are normal in size. There are likely changes of ocular le ns replacement surgeries. There is mild mucosal thickening in the paranasal sinuses. The mastoid air cells are normal. There is left face soft tissue swelling. IMPRESSION: 1. Normal aging brain. Reviewed, dictated and finalized at location A. ITAL CLEANER IMPRESSION: 1. Normal aging brain.
--- NOTE | ~2024-03-19 | CT_ITS ---
EXAMINATION: CT facial & cervical spine wo DATE: 03/19/2024 15:47 INDICATION: Face and head injury. Fall. TECHNIQUE: Computed tomography (CT) of the maxillofacial region and cervical spine was performed with out intravenous contrast. Automated exposure control and iterative reconstruction technique were empl oyed. The dose-length product was 431.19 mGy-cm. COMPARISON: Chest CT 10/01/23 FINDINGS: MAXILLOFACIAL CT: There is left face soft tissue swelling. There is a left cheek hematoma. There is mild mucosal thicke caroline in the paranasal sinuses. There is an old fracture of left nasal processes of maxilla. CERVICAL SPINE CT: The lung apices demonstrate groundglass opacities and septal thickening in right lung apex, likely pu lmonary edema. There is kyphosis of cervical spine. There is 4 degrees levocurvature of cervical spin e. Vertebral body heights are normal. There is mildly decreased disc height at C2-C3, moderately decr eased disc height at C3-C4, and severely decreased disc height from C4-C5 through C7-T1. The followin g disc levels are specifically discussed: C2-C3: There is no uncovertebral joint osteoarthritis. There is severe left facet joint osteoarthriti s. There is ankylosis of right facet joint with moderate hypertrophy. There is mild right neural fora priscilla stenosis. There is no central canal stenosis. C3-C4: There is mild bilateral uncovertebral joint osteoarthritis. There is mild right and severe lef t facet joint osteoarthritis. There is no neural foraminal stenosis. There is mild central canal sten osis. C4-C5: There is severe right and moderate left uncovertebral joint osteoarthritis. There is severe bi lateral facet joint osteoarthritis. There is mild bilateral neural foraminal stenosis. There is mild central canal stenosis. C5-C6: There is severe bilateral uncovertebral joint osteoarthritis. There is mild right and severe l eft facet joint osteoarthritis. There is mild bilateral neural foraminal stenosis. There is mild cent ral canal stenosis. C6-C7: There is severe bilateral uncovertebral joint osteoarthritis. There is mild bilateral facet yvonne int osteoarthritis. There is mild bilateral neural foraminal stenosis. There is mild central canal st enosis. C7-T1: There is mild bilateral uncovertebral joint osteoarthritis. There is moderate bilateral facet joint osteoarthritis. There is no neural foraminal stenosis. There is no central canal stenosis. IMPRESSION: 1. No acute fracture. 2. Severe cervical spondylosis. 3. Airspace opacities and septal thickening at right lung apex, likely pulmonary edema. Reviewed, dictated and finalized at location A. SECURITY MANAGER IMPRESSION: 1. No acute fracture. 2. Severe cervical spondylosis. 3. Airspace opacities and septal thickening at right lung apex, likely pulmonar y edema.
[2024-03-19 15:21] VITALS: BP 134/68; PULSE 73; RESP 16; TEMP 36.6; O2SAT 92
--- NOTE | 2024-03-19 15:31 | ECG_ITS ---
Test Date: 2024-03-19 18:18:05 Measurements Intervals Bruce Rate: 68 P: 65 NV: 209 QRS: 35 QRSD: 94 T: 52 QT: 409 QTc: 436 Interpretive Statements SINUS RHYTHM WITH OCCASIONAL VENTRICULAR PREMATURE COMPLEXES INCOMPLETE RIGHT BUNDLE BRANCH BLOCK [90+ ms QRS DURATION, TERMINAL R IN V1/V2, 40+ ms S IN I/aVL/V4/V5/V6] No previous ECG available for comparison Electronically Signed On 03-20-2024 12:08:15 P[employer]ER [employer] MACHINE OPERATOR by Erik Christianson M.D.
--- NOTE | 2024-03-19 15:32 | ED_ITS ---
HPI - Fall General Chief Complaint: Fall <RADHA Luis Last Filed: 03/19/24 15:46> Stated Complaint: fall on Saturday <RADHA Luis Last Filed: 03/19/24 15:46> Time Seen by Provider: 03/19/24 15:30 <RADHA Luis Last Filed: 03/19/24 15:46> Focused HPI: Patient is a 73-year-old female who presents the ED with report of a fall. Patient reports she fell on Saturday evening in her house. She is unsure how the fall occurred. She is unsure if she passed out or not. She does note that where she fell at was right near her dog's water bowl. She states she may have tripped over the bowl or slipped on water. Sustained HI. Has significant bruising to the left side of her face and mouth. Thinks she may have lost consciousness but is not sure. States she was laying on the ground for some time, was unable to get up by herself. Patient is on Xarelto due to history of AFib. States she laid in bed all day yesterday. C/o pain to arms and legs from straining herself. Has been feeling unstable since the fall with ambulation but denies dizziness/lightheadedness, headache. Denies vision changes. Denies distinct neck or back pain. GENERAL: Elderly, well-nourished, and in no acute distress. HEAD: Normocephalic, diffuse Purple ecchymosis to side of face, left periorbital region, left facial, left upper lip with abrasion. CHEST: Clear to auscultation. ?No respiratory distress. HEART: Regular rate and rhythm.? MSK: No significant tenderness throughout cervical, thoracic, lumbar midline spine. Bruising and mild swelling to left dorsal hand with some tenderness. Mild tenderness over left anterior knee. NEURO: ?Alert and oriented x3. No focal deficits. Able to move all extremities. Patient screened in triage and initial orders placed.? ?Additional care and disposition to be based upon?diagnostic testing and treatment. <RADHA Luis Last Filed: 03/19/24 15:46> Source: patient <Estee Gardner PA-C - Last Filed: 03/19/24 15:46> Mode of arrival: ambulatory <Estee Gardner PA-C - Last Filed: 03/19/24 15:46> Limitations: no limitations <RADHA Luis Last Filed: 03/19/24 15:46> Related Data Home Medications: Home Medications ?Medication ?Instructions ?Recorded ?Confirmed ?Last Taken ?Type ascorbic acid (vitamin C) 500 mg 500 mg PO DAILY 10/07/19 03/04/24 06/08/20 History tablet (Vitamin C) guaifenesin 1,200 mg tablet, 1,200 mg PO BID PRN Congestion 09/07/20 03/04/24 Unknown History extended release 12 hr (Mucinex) zinc 50 mg tablet 50 mg PO DAILY 09/07/20 03/04/24 Unknown History furosemide 40 mg tablet 40 mg PO DAILY 11/01/21 03/04/24 Unknown History <RADHA Luis Last Filed: 03/19/24 15:46> Allergies/Adverse Reactions: Allergies Allergy/AdvReac Type Severity Reaction Status Date / Time morphine Allergy Unknown Itching Verified 03/04/24 10:29 lisinopril AdvReac Unknown Cough Verified 03/04/24 10:29 <Estee Gardner PA-C - Last Filed: 03/19/24 15:46> Review of Systems 2 Review of Systems: CONSTITUTIONAL: Denies fever EYES: Denies visual changes CARDIOVASCULAR: Denies chest pain RESPIRATORY: Denies dyspnea. GASTROINTESTINAL: Denies vomiting MUSCULOSKELETAL: Reports joint pain, and myalgia. NEUROLOGIC: Denies numbness, or weakness. <Celine Mosquera PA-C - Last Filed: 03/19/24 19:37> All systems reviewed & are unremarkable except as noted in HPI and below < Celine Mosquera PA-C - Last Filed: 03/19/24 19:37> [facility] Past Medical History Medical History: Medical History Anxiety Atrial fibrillation Essential hypertension H/O iron deficiency anemia Hyperlipidemia, unspecified Lumbar spondylosis Mitral valve disease Mixed hyperlipidemia Need for prophylactic antibiotic Nocturnal hypoxemia Prolactinoma Tibia fracture Vitamin D deficiency <RADHA Luis Last Filed: 03/19/24 15:46> Surgical History Surgical History: Surgical History H/O cardiac radiofrequency ablation H/O maze procedure History of mitral valve repair <RADHA Luis Last Filed: 03/19/24 15:46> Family History Family History: Family History Mother Family history of diabetes mellitus in first degree relative Family history of glaucoma Family history of congestive heart failure Family history of cataracts Diabetes mellitus Hypertension Father Family history of arthritis Cerebrovascular accident Asthma Esophageal cancer Hypertension Skin cancer Sibling Diabetes mellitus Skin cancer Sibling Diabetes mellitus Skin cancer Sibling Diabetes mellitus <RADHA Luis Last Filed: 03/19/24 15:46> Social History Social History: Social History Social History: the patient lives at home with her Gildardo . her son is the durable director of vocational training for healthcare. The patient is retired. She has 3 children. She is a lifelong nonsmoker. She drinks approximately 14 alcoholic drinks a week. She denies any marijuana or illicit drug use. Code status full code Smoking status: Never smoker Second hand tobacco smoke exposure: Yes Alcohol intake: current Drinks per week: 14 Substance use: never Substance use type: does not use Lack of Transportation: No Lack of Food: Never True Current Housing: I Have Housing Concerned About Future Housing: No Difficulty Paying Gas/Electric Bills: No Difficulty Paying for Meds: No Currently Unemployed: No Education: Bachelor's Degree Difficulty w/ Childcare or Family Care: No Living arrangements: with family Spiritual care concerns: No <RADHA Luis Last Filed: 03/19/24 15:46> Exam 2 Narrative: GENERAL: Well-appearing, well-nourished, and in no acute distress. HEAD: Normocephalic. Contusion to the left side of the face EYES: PERRLA and EOMI. ENT: Nares clear, no rhinorrhea or epistaxis. Mucous membranes moist. Oropharynx without tonsillar hypertrophy exudate or other lesions. Bilateral TMs [place] non-bulging NECK: Supple. No adenopathy or masses. CHEST: Clear to auscultation. No respiratory distress. No wheezes rales or rhonchi HEART: Regular rate and rhythm. No murmur heard. Normal peripheral pulses. EXTREMITIES: Normal range of motion. No edema. SKIN: Warm, dry, no rash. NEURO: No focal deficits. Alert and oriented x3. CN II-XII grossly PSYCH: Normal mood and affect <RADHA Layne Last Filed: 03/19/24 19:37> Course Course Emergency Course: patient updated on her workup and agrees with plan of care <RADHA Layne Last Filed: 03/19/24 19:37> Vital Signs Vital signs: Vital Signs Temperature 97.8 F 03/19/24 15:21 Pulse Rate 73 03/19/24 15:21 Respiratory Rate 16 03/19/24 15:21 Blood Pressure 134/68 03/19/24 15:21 Pulse Oximetry 92 03/19/24 15:21 Temperature 97.8 F 03/19/24 15:21 Pulse Rate 73 03/19/24 15:21 Respiratory Rate 16 03/19/24 15:21 Blood Pressure 134/68 03/19/24 15:21 Pulse Oximetry 92 03/19/24 15:21 <Estee Gardner PA-C - Last Filed: 03/19/24 15:46> Vital Signs Temperature 97.8 F 03/19/24 15:21 Pulse Rate 73 03/19/24 15:21 Respiratory Rate 16 03/19/24 15:21 Blood Pressure 134/68 03/19/24 15:21 Pulse Oximetry 92 03/19/24 15:21 Temperature 97.8 F 03/19/24 15:21 Pulse Rate 73 03/19/24 15:21 Respiratory Rate 16 03/19/24 15:21 Blood Pressure 134/68 03/19/24 15:21 Pulse Oximetry 92 03/19/24 15:21 <RADHA Layne Last Filed: 03/19/24 19:37> MDM - Fall MDM Narrative Medical decision making narrative: MSE by MARIA LUISA in triage. <Estee Gardner PA-C - Last Filed: 03/19/24 15:46> MSE by MARIA LUISA in triage. Patient presents to the emergency department after a fall 2 days ago with head injury. Patient is neurologically intact. Blood work significant for hyponatremia, which appears to be chronic. BNP is elevated at 2020. She does not endorse any current shortness of breath. Chest x-ray shows cardiomegaly. Bilateral knee x-rays are without acute osseous abnormalities. CT cervical spine and facial bones without acute osseous abnormalities. CT brain shows a normal aging brain. Left hand x-ray shows a minimally displaced intra-articular fracture at the left 5th proximal phalanx. Placed in a metal foam finger splint. Patient family updated on workup and agree with plan of care. She is to follow up with primary provider and hand surgery. She was given warnings to return to the ER <RADHA Layne Last Filed: 03/19/24 19:37> Differential Diagnosis Differential diagnosis: Likely syncope, concussion without loss of consciousness and other (Electrolyte derangement, dehydration, intracranial hemorrhage, cervical spine fracture, facial bone fracture, finger fracture) <Celine Mosquera PA-C - Last Filed: 03/19/24 19:37> Lab Data Attestation: I reviewed the patient's lab results. <Celine Mosquera PA-C - Last Filed: 03/19/24 19:37> Result diagrams: 03/19/24 15:55 03/19/24 15:55 <RADHA Luis Last Filed: 03/19/24 15:46> Labs: Lab Results 03/19/24 Range/Units 15:55 WBC 6.7 (4.5-10.0) K/mm3 RBC 4.25 (4.2-5.4) M/mm3 Hgb 11.8 L (12.0-15.0) g/dL Hct 36.5 L (37.0-47.0) % MCV 85.9 (80-100) fl MCH 27.8 (26-34) pg MCHC 32.3 (32-36) g/dl RDW 14.6 H (11.5-14.5) % Plt Count 111 L D (150-375) k/mm3 MPV 8.9 (7.4-10.4) fl Immature Gran % (Auto) 0.9 H (0-0.5) % Neut % (Auto) 70.1 (45.5-73.1) % Lymph % (Auto) 16.2 L (18.3-44.2) % Craven % (Auto) 10.7 H (2.6-8.5) % Eos % (Auto) 1.8 (0-4.4) % Baso % (Auto) 0.3 (0.2-1.2) % Lymph # (Auto) 1.08 (0.9-3.2) K/mm3 Craven # (Auto) 0.7 H (0.1-0.6) K/mm3 Eos # (Auto) 0.1 (0-0.3) K/mm3 Baso # (Auto) 0.0 (0.0-0.1) K/mm3 Abs Immat Gran (auto) 0.06 H (0.00-0.031) K/mm3 Absolute Neuts (auto) 4.7 (1.3-6.7) K/mm3 Absolute Nucleated RBC 0.000 (0.0-0.012) K/mm3 Nucleated RBC % 0.0 (0.0-0.2) % Sodium 127 L (137-145) mmol/L Potassium 4.4 (3.4-5.0) mmol/L Chloride 98 (98-107) mmol/L Carbon Dioxide 26 (22-30) mmol/L Anion Gap 3 L (4-12) mmol/L BUN 15 (7-17) mg/dL Creatinine 0.60 L (0.7-1.0) mg/dL Estim Creat Clear Calc 64 ml/min Estimated GFR > 60 (59 - ) Glucose 91 (65-110) mg/dL Calcium 8.8 (8.4-10.2) mg/dL Magnesium 1.8 (1.6-2.3) mg/dL Total Bilirubin 0.8 (0.2-1.3) mg/dL AST 31 (14-36) U/L ALT 18 (6-35) U/L Alkaline Phosphatase 77 (38-126) U/L Total Creatine Kinase 89 (30-135) U/L Troponin I < 0.012 (0.000-0.034) ng/mL NT-Pro-B Natriuret Pep 2020 H (19.9-100) pg/mL Total Protein 7.0 (6.3-8.2) g/dL Albumin 3.8 (3.5-5.1) g/dL <Estee Gardner PA-C - Last Filed: 03/19/24 15:46> Lab Results 03/19/24 Range/Units 15:55 WBC 6.7 (4.5-10.0) K/mm3 RBC 4.25 (4.2-5.4) M/mm3 Hgb 11.8 L (12.0-15.0) g/dL Hct 36.5 L (37.0-47.0) % MCV 85.9 (80-100) fl MCH 27.8 (26-34) pg MCHC 32.3 (32-36) g/dl RDW 14.6 H (11.5-14.5) % Plt Count 111 L D (150-375) k/mm3 MPV 8.9 (7.4-10.4) fl Immature Gran % (Auto) 0.9 H (0-0.5) % Neut % (Auto) 70.1 (45.5-73.1) % Lymph % (Auto) 16.2 L (18.3-44.2) % Craven % (Auto) 10.7 H (2.6-8.5) % Eos % (Auto) 1.8 (0-4.4) % Baso % (Auto) 0.3 (0.2-1.2) % Lymph # (Auto) 1.08 (0.9-3.2) K/mm3 Craven # (Auto) 0.7 H (0.1-0.6) K/mm3 Eos # (Auto) 0.1 (0-0.3) K/mm3 Baso # (Auto) 0.0 (0.0-0.1) K/mm3 Abs Immat Gran (auto) 0.06 H (0.00-0.031) K/mm3 Absolute Neuts (auto) 4.7 (1.3-6.7) K/mm3 Absolute Nucleated RBC 0.000 (0.0-0.012) K/mm3 Nucleated RBC % 0.0 (0.0-0.2) % Sodium 127 L (137-145) mmol/L Potassium 4.4 (3.4-5.0) mmol/L Chloride 98 (98-107) mmol/L Carbon Dioxide 26 (22-30) mmol/L Anion Gap 3 L (4-12) mmol/L BUN 15 (7-17) mg/dL Creatinine 0.60 L (0.7-1.0) mg/dL Estim Creat Clear Calc 64 ml/min Estimated GFR > 60 (59 - ) Glucose 91 (65-110) mg/dL Calcium 8.8 (8.4-10.2) mg/dL Magnesium 1.8 (1.6-2.3) mg/dL Total Bilirubin 0.8 (0.2-1.3) mg/dL AST 31 (14-36) U/L ALT 18 (6-35) U/L Alkaline Phosphatase 77 (38-126) U/L Total Creatine Kinase 89 (30-135) U/L Troponin I < 0.012 (0.000-0.034) ng/mL NT-Pro-B Natriuret Pep 2020 H (19.9-100) pg/mL Total Protein 7.0 (6.3-8.2) g/dL Albumin 3.8 (3.5-5.1) g/dL <Celine Mosquera PA-C - Last Filed: 03/19/24 19:37> Imaging Data Radiologist's impression: ITS Impressions Head CT 03/19/24 15:50 IMPRESSION: 1. Normal aging brain. Head/Cervical Spine/Facial Bones CT 03/19/24 15:51 IMPRESSION: 1. No acute fracture. 2. Severe cervical spondylosis. 3. Airspace opacities and septal thickening at right lung apex, likely pulmonary edema. Hand X-Ray 03/19/24 16:12 IMPRESSION: 1. Minimally displaced intra-articular diaphyseal fracture of the left fifth proximal phalanx. Knee X-Ray 03/19/24 16:14 IMPRESSION: 1. Old healed internally fixed proximal tibial fracture in near-anatomic alignment. 2. Small left knee joint effusion and mild prepatellar soft tissue swelling. No acute osseous abnormality. Knee X-Ray 03/19/24 16:17 IMPRESSION: 1. Mild tricompartmental osteoarthritis at the right knee. No knee joint effusion or acute osseous abnormality. Chest X-Ray 03/19/24 17:37 IMPRESSION: 1. Cardiomegaly. <RADHA Layne Last Filed: 03/19/24 19:37> ECG Data EKG #1: ECG completion date: 03/19/24 <RADHA Layne Last Filed: 03/19/24 19:37> EKG Interpretation: normal rate, sinus rhythm, no ST changes and normal QT <RADHA Layne Last Filed: 03/19/24 19:37> Critical Care Time Critical Care Time Critical Care Time: No <RADHA Layne Last Filed: 03/19/24 19:37> Discharge Plan Discharge Clinical Impression: Fall, Head injury, Contusion, Finger fracture, left, Chronic hyponatremia <RADHA Luis Last Filed: 03/19/24 15:46> Patient Disposition: Home, Self-Care <RADHA Luis Last Filed: 03/19/24 15:46> Condition: Stable <RADHA Luis Last Filed: 03/19/24 15:46> Instructions: Finger Fracture (ED), Head Injury (ED), Contusion in Adults (ED) <RADHA Luis Last Filed: 03/19/24 15:46> Additional Instructions: Return to the emergency department if you experience fever, chest pain, shortness of breath, vomiting, weakness, numbness, or any other symptoms that are concerning to you. Rest. Ice to the area. Over the counter pain medication as needed. Prescribed pain medication as needed Follow up with primary care doctor and hand surgery (Dr. Llanos) for your finger fracture <RADHA Luis Last Filed: 03/19/24 15:46> Patient Language: Icelandic <RADHA Luis Last Filed: 03/19/24 15:46> Prescriptions: New hydrocodone-acetaminophen 5-325 mg tablet 1 tablet PO Q8H PRN (Reason: pain) Qty: 14 0RF No Action guaifenesin [Mucinex] 600 mg tablet extended release 12hr 600 mg PO BID 10 Days Qty: 20 0RF doxycycline monohydrate 100 mg capsule 100 mg PO BID 7 Days Qty: 14 0RF valacyclovir [Valtrex] 1 gram tablet 2,000 mg PO Q12H Qty: 4 4RF Rx Instructions: for 1 day ascorbic acid (vitamin C) [Vitamin C] 500 mg Tablet 500 mg PO DAILY zinc 50 mg Tablet 50 mg PO DAILY guaifenesin [Mucinex] 1,200 mg Tablet Extended Release 12hr 1,200 mg PO BID PRN (Reason: Congestion) furosemide 40 mg tablet 40 mg PO DAILY Rx Instructions: Xarelto 20 mg tablet 20 mg PO DAILY Qty: 4 0RF Rx Instructions: must administer with evening meal oxybutynin chloride 10 mg tablet extended release 24hr See Rx Instructions .ROUTE .COMPLEX Qty: 90 2RF Dose Instruction: TAKE 1 TABLET BY MOUTH DAILY Rx Instructions: TAKE 1 TABLET BY MOUTH DAILY cholecalciferol (vitamin D3) [Vitamin D3] 25 mcg (1,000 unit) tablet 25 mcg PO DAILY Qty: 90 2RF potassium chloride 20 mEq tablet extended release 20 meq PO DAILY Qty: 30 6RF albuterol sulfate 90 mcg/actuation HFA aerosol inhaler See Rx Instructions .ROUTE .COMPLEX Qty: 8.5 3RF Dose Instruction: INHALE 1 TO 2 PUFFS BY MOUTH EVERY 4 TO 6 HOURS NEEDED FOR SHORTNESS OF BREATH OR WHEEZING Rx Instructions: INHALE 1 TO 2 PUFFS BY MOUTH EVERY 4 TO 6 HOURS NEEDED FOR SHORTNESS OF BREATH OR WHEEZING azelastine 137 mcg (0.1 %) spray,non-aerosol See Rx Instructions .ROUTE .COMPLEX Qty: 30 3RF Dose Instruction: USE 1 SPRAY IN EACH NOSTRIL EVERY 12 HOURS Rx Instructions: USE 1 SPRAY IN EACH NOSTRIL EVERY 12 HOURS metoprolol succinate 50 mg tablet extended release 24 hr See Rx Instructions .ROUTE .COMPLEX Qty: 90 3RF Dose Instruction: TAKE 1 TABLET BY MOUTH DAILY Rx Instructions: TAKE 1 TABLET BY MOUTH DAILY losartan 50 mg tablet 50 mg PO DAILY Qty: 90 1RF zolpidem [Ambien] 10 mg tablet 10 mg PO .hs PRN (Reason: insomnia) Qty: 30 2RF Rx Instructions: some times takes 1 tablet citalopram [Celexa] 40 mg tablet 40 mg PO DAILY Qty: 90 1RF <Estee Gardner PA-C - Last Filed: 03/19/24 15:46> Follow-up/Referrals: Monica Llanos MD [Physician] - Shannan Dennis MD [Primary Care Provider] - <Estee Gardner PA-C - Last Filed: 03/19/24 15:46>
[2024-03-19 16:05] LABS: Basophils Percent Auto 0.3 % (0.2-1.2); Eosinophils Absolute Auto 0.1 K/mm3 (0-0.3); Eosinophils Percent Auto 1.8 % (0-4.4); Hematocrit 36.5 % (37.0-47.0); Hemoglobin 11.8 g/dL (12.0-15.0); Immature Granulocyte Absolute 0.06 K/mm3 (0.00-0.031); Immature Granulocyte Percent A 0.9 % (0-0.5); Lymphocytes Absolute Auto 1.08 K/mm3 (0.9-3.2); Lymphocytes Percent Auto 16.2 % (18.3-44.2); Mean Corpuscular HGB Conc 32.3 g/dl (32-36); Mean Corpuscular Hemoglobin 27.8 pg (26-34); Mean Corpuscular Volume 85.9 fl (80-100); Mean Platelet Volume 8.9 fl (7.4-10.4); Monocytes Absolute Auto 0.7 K/mm3 (0.1-0.6); Monocytes Percent Auto 10.7 % (2.6-8.5); Neutrophils Absolute Auto 4.7 K/mm3 (1.3-6.7); Neutrophils Percent Auto 70.1 % (45.5-73.1); Platelet Count Result 111 k/mm3 (150-375); Red Blood Count 4.25 M/mm3 (4.2-5.4); Red Cell Distribution Width 14.6 % (11.5-14.5); White Blood Count 6.7 K/mm3 (4.5-10.0)
[2024-03-19 16:20] LABS: Alanine Aminotransferase 18 U/L (6-35); Albumin Level 3.8 g/dL (3.5-5.1); Alkaline Phosphatase 77 U/L (38-126); Anion Gap 3 mmol/L (4-12); Aspartate Amino Transferase 31 U/L (14-36); Bilirubin,Total 0.8 mg/dL (0.2-1.3); Blood Urea Nitrogen 15 mg/dL (7-17); Calcium 8.8 mg/dL (8.4-10.2); Carbon Dioxide 26 mmol/L (22-30); Chloride 98 mmol/L (98-107); Creatine Kinase 89 U/L (30-135); Estimated CRCL calculation 64 ml/min; Estimated Glomerular Filt Rate > 60; Glucose 91 mg/dL (65-110); Magnesium 1.8 mg/dL (1.6-2.3); Potassium 4.4 mmol/L (3.4-5.0); Sodium 127 mmol/L (137-145)
[2024-03-19 16:31] LABS: Troponin I < 0.012 ng/mL (0.000-0.034)
[2024-03-19 18:23] LABS: NT Pro B Type Natriuretic Pept 2020 pg/mL (19.9-100)
--- NOTE | 2024-03-31 09:09 | PC.NURSE ---
LATE ENTRY This note is being entered to document information to the patient's record. The following information was omitted on [03/19/24], by [Mirna Felix]. Metal finger splint applied to left hand, fifth digit.
== END 2024-03-19 19:58 | disposition home or self-care (01) ==
PROVIDERS: Physician Assistant; Emergency Provider Physician Assistant; PCP Family Medicine
DX: S00.12XA Contusion of left eyelid and periocular area, initial encounter (principal); S00.531A Contusion of lip, initial encounter; S62.617A Displaced fracture of proximal phalanx of left little finger, initial encounter for closed fracture; E87.1 Hypo-osmolality and hyponatremia; R79.89 Other specified abnormal findings of blood chemistry; I48.91 Unspecified atrial fibrillation; I10 Essential (primary) hypertension; I05.9 Rheumatic mitral valve disease, unspecified; E78.2 Mixed hyperlipidemia; E55.9 Vitamin D deficiency, unspecified; D50.9 Iron deficiency anemia, unspecified; F41.9 Anxiety disorder, unspecified; I45.10 Unspecified right bundle-branch block; M17.11 Unilateral primary osteoarthritis, right knee; M47.812 Spondylosis without myelopathy or radiculopathy, cervical region; I51.7 Cardiomegaly; R91.8 Other nonspecific abnormal finding of lung field; Z79.01 Long term (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; W01.0XXA Fall on same level from slipping, tripping and stumbling without subsequent striking against object, initial encounter
CPT/HCPCS: 29130; 36415; 70450; 70486; 71046; 72125; 73130; 73564; 80053; 82550; 83735; 83880; 84484; 85025; 93005; 99284

== ENCOUNTER 2024-03-27 09:12 | Outpatient (CLI) | payer MEDICARE, OTHER, SELFPAY ==
--- NOTE | ~2024-03-27 | XR_ITS ---
XR hand LT min 3V Ordering provider: Jenni Mancini PA-C History: . S62.92XA - Unspecified fracture of left wrist and hand, i... . Comparison: March 19, 2024 FINDINGS: BONES: Fracture of the proximal phalanx of the little finger with no change in alignment. Cast is see n around the medial aspect of the hand and forearm. JOINT SPACES: Osteoarthritic changes of the first carpometacarpal joint with minimal subluxation. SOFT TISSUES: Unremarkable. IMPRESSION: Fracture in the proximal phalanx of the little finger unchanged from previous examination. Reviewed, dictated and finalized at location A. LE BENDER IMPRESSION: Fracture in the proximal phalanx of the little finger unchanged from previous e xamination.
== END 2024-03-27 09:13 | disposition home or self-care (01) ==
PROVIDERS: PCP Family Medicine; Visit Provider Physician Assistant Surgical
DX: S62.617A Displaced fracture of proximal phalanx of left little finger, initial encounter for closed fracture (principal); X58.XXXA Exposure to other specified factors, initial encounter
CPT/HCPCS: 73130

== ENCOUNTER 2024-04-08 13:28 | Outpatient (CLI) | payer MEDICARE, OTHER, SELFPAY ==
--- NOTE | ~2024-04-08 | XR_ITS ---
Left Hand Technique: PA, oblique, and lateral views were obtained. Clinical History: Fracture COMPARISON: 03/27/2024 Findings: Cast again in place. Continued routine interval healing of oblique fracture of the fifth pr oximal phalanx. There is advanced degenerative change of the base of the thumb with probable prior tr apezium resection.. Impression: Healing fracture of the fifth proximal phalanx. Reviewed, dictated and finalized at location M. RENTAL CLERK Impression: Healing fracture of the fifth proximal phalanx.
== END 2024-04-08 13:29 | disposition home or self-care (01) ==
PROVIDERS: PCP Family Medicine; Visit Provider Physician Assistant Surgical
DX: S62.607D Fracture of unspecified phalanx of left little finger, subsequent encounter for fracture with routine healing (principal); X58.XXXD Exposure to other specified factors, subsequent encounter
CPT/HCPCS: 73130

== ENCOUNTER 2024-04-14 09:05 | Outpatient (CLI) | payer MEDICARE, OTHER, SELFPAY ==
--- NOTE | 2024-05-01 11:54 | P.SLEEP_ITS ---
Sleep Study Date of Study: 04/14/24 Ordering Provider: Ovidio Villagran MD Interpreting Physician: Poonam Vasquez MD Sleep Study Type: CPAP Titration Height: 1.52 m Weight: 70.307 kg Body Mass Index: 30.2 Neck Circumference (inches): 15 [place]: 4 Reason for Sleep Study CPAP titration with possible for need for oxygen supplementation * 01/01/2024, overnight oximetry on CPAP 13 and room air showed desaturation to 72%, the patient spent 1 hours 7 minutes below 88%, oxygen desaturation index 13. The patient is repeating CPAP titration to see if she qualifies for addition of O2. Sleep History Adriana Benitez is a 73-year-old woman with obstructive sleep apnea who is using CPAP. There was a concern that she may need supplemental oxygen based on overnight oximetry. For this reason she returns for a repeat CPAP titration. She does not awaken from sleep feeling short of breath. She frequently awakens at night with coughing. She constantly snores and frequently this is loud enough that others complain. She occasionally has difficulty sleeping when she has a cold. She does not gasp for breath at night, does not sweat excessively at night although occasionally she notices her heart pounding or beating irregularly at night. She does not fall asleep during the day she does not fall asleep involuntarily or while driving fever. She does not have loss of muscle tone with strong emotion. She does not have daytime difficulties due to excessive sleepiness. She does not feel paralyzed on waking or falling asleep. She occasionally has vivid dreamlike scenes upon awakening or falling asleep. She does not feel afraid to go to sleep. She frequently has nightmares and frequently remembers her dreams. She occasionally has racing thoughts. She occasionally feels sad or depressed. She constantly has anxiety. She does not have muscular tension. She does not notice parts of her body jerking nor does she kick at night. She does not have crawling or aching feelings in her legs. She occasionally has leg pain during the night. She never has morning jaw pain or although occasionally she grinds her teeth during sleep. She frequently is bothered by pain during the day. She occasionally is awakened by pain at night. She occasionally wakes up feeling stiff in the morning, occasionally awakens with sore or achy muscles and occasionally awakens with neck and spine pain. She has memory problems, headaches, stomach difficulties and nightmares. She feels depressed at times. Normal bedtime is 12 midnight, falling asleep within 1 hour after taking zolpidem 10 mg which is a regular medication, typically waking 4 times at night to watch television. Her normal wake time is 11:00 a.m.. She keeps the same schedule on the weekends. Her awakenings occur throughout the night. She does not take naps in the afternoon or evening. A short nap lasting 10-15 minutes is not refreshing. She feels better in the afternoon compared to other times of day. Habits: Tobacco : none Caffeine: yes Alcohol : 14 drinks per week Recreational substances : none PMFSH Past Medical History Medical History ANAM (obstructive sleep apnea) IBS (irritable bowel syndrome) Colon polyps Tibia fracture Nocturnal hypoxemia Atrial fibrillation Lumbar spondylosis Anxiety Essential hypertension H/O iron deficiency anemia Hyperlipidemia, unspecified Mitral valve disease Mixed hyperlipidemia Need for prophylactic antibiotic Prolactinoma Vitamin D deficiency Surgical History Surgical History History of Saleem fundoplication H/O cardiac radiofrequency ablation History of mitral valve repair H/O maze procedure Family History Family History Mother Family history of diabetes mellitus in first degree relative Family history of glaucoma Family history of congestive heart failure Family history of cataracts Diabetes mellitus Hypertension Father Family history of arthritis Cerebrovascular accident Asthma Esophageal cancer Hypertension Skin cancer Sibling Diabetes mellitus Skin cancer Sibling Diabetes mellitus Skin cancer Sibling Diabetes mellitus Social History Social History Social History: the patient lives at home with her Gildardo . her son is the durable erisa attorney for healthcare. The patient is retired. She has 3 children. She is a lifelong nonsmoker. She drinks approximately 14 alcoholic drinks a week. She denies any marijuana or illicit drug use. Code status full code Smoking status: Never smoker Second hand tobacco smoke exposure: Yes Alcohol intake: current Drinks per week: 14 Substance use: never Substance use type: does not use Lack of Transportation: No Lack of Food: Never True Current Housing: I Have Housing Concerned About Future Housing: No Difficulty Paying Gas/Electric Bills: No Difficulty Paying for Meds: No Currently Unemployed: No Education: Bachelor's Degree Difficulty w/ Childcare or Family Care: No Living arrangements: with family Spiritual care concerns: No Medications Home Medications ?Medication ?Instructions ?Recorded ?Confirmed ?Type ascorbic acid (vitamin C) 500 mg 500 mg PO DAILY 10/07/19 04/16/24 History tablet (Vitamin C) zinc 50 mg tablet 50 mg PO DAILY 09/07/20 04/16/24 History rivaroxaban 20 mg tablet (Xarelto) 20 mg PO DAILY #4 tabs 01/06/21 04/16/24 Rx furosemide 40 mg tablet 40 mg PO DAILY 11/01/21 04/16/24 History oxybutynin chloride 10 mg See Rx Instructions .Route 05/19/23 04/16/24 Rx tablet,extended release 24 hr .COMPLEX #90 tabs cholecalciferol (vitamin D3) 25 25 mcg PO DAILY #90 tabs 09/27/23 04/16/24 Rx mcg (1,000 unit) tablet (Vitamin D3) potassium chloride 20 mEq 20 meq PO DAILY #30 tabs 01/20/24 04/16/24 Rx tablet,extended release albuterol sulfate 90 mcg/actuation See Rx Instructions .Route 01/27/24 04/16/24 Rx aerosol inhaler .COMPLEX #8.5 grams metoprolol succinate 50 mg See Rx Instructions .Route 02/17/24 04/16/24 Rx tablet,extended release 24 hr .COMPLEX #90 tabs losartan 50 mg tablet 50 mg PO DAILY #90 tabs 02/21/24 04/16/24 Rx guaifenesin 600 mg tablet, 600 mg PO BID 10 days #20 tabs 03/03/24 04/16/24 Rx extended release 12 hr (Mucinex) zolpidem 10 mg tablet (Ambien) 10 mg PO .hs PRN insomnia #30 tabs 03/04/24 04/16/24 Rx citalopram 40 mg tablet (Celexa) 40 mg PO DAILY #90 tabs 03/15/24 04/16/24 Rx hydrocodone 5 mg-acetaminophen 325 1 tablet PO Q8H PRN pain #14 tabs 03/19/24 04/16/24 Rx mg tablet azelastine 137 mcg (0.1 %) nasal See Rx Instructions .Route 03/27/24 04/16/24 History spray .COMPLEX PRN valacyclovir 1 gram tablet 2,000 mg PO Q12H PRN 03/27/24 04/16/24 History (Valtrex) Sleep Procedure A full CPAP polysomnogram using the [employer] multi-channel system recorded the standard physiologic parameters including EEG, EOG, submentalis EMG, anterior tibialis EMG, EKG, body position, nasal and oral airflow using nasal pressure sensor and thermistor. Respiratory parameters of chest and abdominal movements were recorded with Respiratory Inductance Plethysmography belts. Oxygen saturation was recorded by pulse oximetry. Video monitoring was also performed. Sleep stages, periodic limb movements, and EEG arousals were scored in 30 second epochs according to the criteria of the AASM Scoring Manual. The Apnea-Hypopnea Index was calculated using CMS guidelines for definition of hypopnea while scoring respiratory events. Tech notes indicate the patient did not take a sleep aid at the beginning of the study. The patient was started on CPAP using a small [employer] Solo nasal mask and heated humidity. Initial pressure was CPAP 5 cm, increased to 6, 8, 9, 10, 11, 12, 13, final pressure was CPAP 14 cm. At this pressure the patient spent 119 minutes in bed, 16 minutes awake, 103 minutes in non-REM, no time in REM. Sleep efficiency was 86.6%. The residual apnea-hypopnea index using 4% criteria was 0.6 with a minimum saturation of 91%. She did not have REM at this pressure. She had supine REM at several lower pressures including CPAP 8, 9, 11 and 12 cm, so she is expected to be able to have REM at CPAP 14. Her optimal pressure is CPAP 14 cm, and she did not require supplemental oxygen. Sleep Architecture The total recording time was 408.9 minutes. The total sleep time was 372.0 minutes. Sleep latency was 0.0 minutes. REM latency was 110.8 minutes. Sleep efficiency was 91.0%. The patient had 20 awakenings for an awakening index of 3.2. Wake after Sleep Onset time was 37.5 minutes. The patient spent 51.5 minutes, 13.8% of total sleep time in Stage N1. The patient spent 233.0 minutes, 62.6% in Stage N2. The patient spent 45.0 minutes, 12.1% in Stage N3. The patient spent 42.5 minutes, 11.4% in Stage REM. Respiratory Analysis The patient had 14 hypopneas, 2 obstructive apneas, no mixed apneas, and 1 central apnea for an overall Apnea Hypopnea Index of 2.7 events per hour. The REM Apnea Hypopnea Index was 1.4. The NREM Apnea Hypopnea Index was 2.9. The patient had a Central Apnea Hypopnea Index of 0.2. There were no Respiratory Effort Related Arousals. The Respiratory Disturbance Index is 6.5 events per hour. There was no evidence of Edwar-Joseph Respirations. Arousals There were 165 total arousals for an arousal index of 26.6. There were 31 spontaneous arousals for an index of 5.0. There were 15 arousals due to respiratory events for an index of 2.4. There were 108 arousals due to periodic limb movements for an index of 17.4. There were 10 arousals due to isolated limb movements for an index of 1.6. Periodic Limb Movements The patient had 41 isolated limb movements with an index of 6.6. The patient had 260 periodic limb movements with index of 41.9. Patient had a total of 301 limb movements with a total limb movement index of 48.5. Oximetry Data The patient had an average oxygen saturation of 92.8% in sleep with a minimum oxygen saturation of 83% and a maximum oxygen saturation of 96%. The patient had 20 oxygen desaturations that were 4% or greater resulting in an Oxygen Desaturation Index of 3.2. The patient spent 6.4 minutes, 1.6% of total sleep time with an oxygen saturation below 88%. Snoring Profile Snoring was mild and intermittent, eliminated at the optimal pressure. Cardiac Profile The EKG showed normal sinus rhythm. The patient had an average pulse rate of 52.8 bpm with a minimum pulse rate of 48 bpm and a maximum pulse rate of 70 bpm. No arrhythmias noted. EEG Profile EEG was unremarkable, no evidence of seizures. Assessment and Plan Assessment and Plan (1) ANAM (obstructive sleep apnea): Code(s): G47.33 - Obstructive sleep apnea (adult) (pediatric) Status: Acute Assessment and Plan: This full night CPAP titration on April 14, 2024 shows a successful CPAP t itration with an optimal pressure of CPAP 14 cm using a small [employer] Solo nasal mask and heated humidity. The residual apnea-hypopnea index is 0.6 hypoxemia was eliminated. She did not require supplemental oxygen during this titration. The minimum saturation on CPAP 14 was 91%. She did not have REM at this setting but had supine REM at several previous settings. The patient should be prescribed this [employer] equipment as well as tubing, filters and reservoir. This should be used with all episodes of sleep. Compliance should be reviewed within 31-90 days of starting therapy for usage greater than 4 hours per night greater than 70% of the nights. The patient should be asked about symptoms such as excessive daytime sleepiness, quality of sleep, decreased nocturia, in creased mental functioning such as memory, mood, and concentration. BMI is 30. Weight management is advised. Clinical data suggests that weight loss of 10% can reduce the severity of respiratory events and snoring and improve AHI by as much as 25%. (2) PLMD (periodic limb movement disorder): Code(s): G47.61 - Periodic limb movement disorder Status: Acute Assessment and Plan: The patient does not have complaints of kicking at night nor does she complain of irritable crawling or aching feelings in her legs at night however she had excessive limb movements through the night, especially in the 1st 3rd of the night but also at the optimal pressure. Her sleep was overall fragmented. She had frequent shifts between wake, stage I and stage II. The periodic limb movement arousal index was 17.4, normal is fewer than 15 events per hour. The total limb movement index during the study was 48.5. Ferritin level is indicated to exclude iron deficiency anemia as a contributing factor. Ferritin should be 75 ng/mL or greater. If ferritin is below this, iron supplementation should be given to achieve ferritin of 75 ng/mL. There are nonpharmacologic methods to treat limb movements including daily exercise, stretching calf muscles before bed, avoiding excessive amounts of caffeine and alcohol, vitamin B supple mentation, magnesium lotion massaged into legs before bed, and use of a weighted blanket. Pharmacologic therapy is very effective for restless legs syndrome and limb movements during sleep and may include [id number] voltage-gated calcium channel ligands such as gabapentin which is preferable to dopaminergic agents which can have augmentation. Other treatments can include opioids and benzodia zepines. Data The data obtained during this sleep study is adequate for interpretation. Certification This sleep study has been reviewed by a board certified sleep medicine physician.
[2024-05-01 12:04] VITALS: BMI 30.2
== END 2024-04-15 06:30 | disposition home or self-care (01) ==
LOC: ANHCSM 09:07
PROVIDERS: PCP Family Medicine; Visit Provider Internal Medicine Pulmonary Disease
DX: G47.33 Obstructive sleep apnea (adult) (pediatric) (principal); G47.61 Periodic limb movement disorder
CPT/HCPCS: 95811

== ENCOUNTER 2024-04-22 13:19 | Outpatient (CLI) | payer MEDICARE, OTHER, SELFPAY ==
--- NOTE | ~2024-04-22 | XR_ITS ---
EXAMINATION: XR hand LT min 3V DATE: 04/22/2024 13:46 INDICATION: Unspecified fracture of the left hand and wrist. TECHNIQUE: Posteroanterior, oblique and lateral views of the left hand were obtained. COMPARISON: 04/08/2024 03/19/2024 FINDINGS: Again seen is Fiberglas splinting material overlying the ulnar side of the hand and wrist which obscu res underlying fine bone and soft tissue detail. There is the previously noted oblique extra articula r fracture of the left fifth proximal phalanx remains in essentially anatomic alignment. The fracture line is unable be clearly distinguished from the superimposed splinting material. No new fractures i dentified. Polyarticular osteoarthritis, severe at the first carpometacarpal joint, moderate severity at the first metacarpophalangeal and several distal interphalangeal joints and mild at many of the r emaining joints in the left hand and wrist. IMPRESSION: 1. Fractured left fifth proximal phalanx remains in near-anatomic alignment but which is obscured by overlying splinting material limiting assessment for degree of healing. 2. Severe osteoarthritis at the first carpometacarpal joint. Reviewed, dictated and finalized at location A. FITTER IMPRESSION: 1. Fractured left fifth proximal phalanx remains in near-anatomic alignment but which is obscured by overlying splinting material limiting assessment for degr ee of healing. 2. Severe osteoarthritis at the first carpometacarpal joint.
== END 2024-04-22 13:20 | disposition home or self-care (01) ==
LOC: ANHIMG 13:28
PROVIDERS: Visit Provider Physician Assistant Surgical
DX: S62.647D Nondisplaced fracture of proximal phalanx of left little finger, subsequent encounter for fracture with routine healing (principal); X58.XXXD Exposure to other specified factors, subsequent encounter; M18.12 Unilateral primary osteoarthritis of first carpometacarpal joint, left hand
CPT/HCPCS: 73130

== ENCOUNTER 2024-07-09 14:16 | Outpatient (CLI) | payer MEDICARE, OTHER, SELFPAY ==
--- NOTE | ~2024-07-09 | DEXA_ITS ---
Bone Density Report Name: PIPER SUMMERS Age: 73 Sex: Female Ethnicity: White Date of : 1950 Indication: postmenopausal; screening for osteoporosis; height loss; Referring Provider: ALLY HALL Study: Bone densitometry was performed. Exam Date: July 09, 2024 Accession number: [id number] Bone Density: Region BMD T-score Z-score Classification AP Spine(L1-L4) 1.173 1.1 3.4 Normal Femoral Neck (Left) 0.627 -2.0 -0.1 Osteopenia Total Hip (Left) 0.876 -0.5 1.1 Normal Femoral Neck (Right) 0.650 -1.8 0.1 Osteopenia Total Hip (Right) 0.828 -0.9 0.7 Normal Total Hip Mean 0.852 -0.7 0.9 Normal World Health Organization criteria for BMD impression classify patients as: Normal (T-score at or above -1.0), Osteopenia (T-score between -1.0 and -2.5), or Osteoporosis (T-score at or below -2.5). 10-year Fracture Risk(1): Major Osteoporotic Fracture 12% Hip Fracture 2.4% Reported Risk Factors: [place] (), Neck BMD=0.627, BMI=30.8 (1) FRAX(R) Version 3.08. Fracture probability calculated for an untreated patient. Fracture probability may be lower if the patient has received treatment. Clinical Information Provided by Patient: Has used the following medications: Vitamin D Patient maximum height was 62 Menopause Age: 56 No regular weight bearing exercise Drinks caffeinated beverages Onset of menses at age 13 Number of children 1 Impression: The patient has low bone mass, based on the Left Femoral Neck T-score. The patient has an estimated ten-year risk of hip fracture of 2.4% and an estimated ten-year risk of major fracture of 12%, based on the WHO FRAX algorithm. Discussion: BONE DENSITY IS LOW AT ONE OR MORE SKELETAL SITES. This patient's lowest T-score is low at one or more skeletal sites. It meets the World Health Organization's (WHO) criteria for ?low bone mass? (T-score between -1.0 and -2.5). The patient's 10-year risk of fracture as calculated by FRAX is less than the threshold where pharmacological therapy is recommended by the National Osteoporosis Foundation (NOF). However, all treatment decisions require clinical judgment and consideration of individual patient factors, including patient preferences, comorbidities, previous drug use, risk factors not captured in the FRAX model (e.g., frailty, falls, vitamin D deficiency, increased bone turnover, interval significant decline in bone density) and possible under or overestimation of fracture risk by FRAX. The patient should follow a healthful lifestyle (good nutrition with adequate calcium and vitamin D, and appropriate weight-bearing exercise). Follow-Up: Consider repeating this study in 2 to 3 years to reassess this patient's status, or sooner if there is some new clinical indication. Reported by: SOHEILA on 07/09/2024 3:03:00 PM. Reviewed, dictated and finalized at location [facility] MILIAN
--- OUTSIDE RECORDS SUMMARY | 2024-07-09 14:53 | XMS_ITS ---
Author Name Leonel Suarez Marcin Address [address] [place] [address] Phone [phone] Organization [employer] [facility] Address [address] [place] [address] Phone [phone] Care Team Providers Care Driveway Sealer Name Role Phone Leonel Suarez Unavailable [phone] Ovidio Moreno Unavailable Functional Status No Results Mental Status No Results Allergies and Intolerances Name Onset Date Reaction Severity morphine (Allergy) SatSep 29 13:53:00 EDT 2021 lisinopril (Allergy) SatSep 29 13:52:00 EDT 202 2 Medications Medication Directions Start Date End Date simethicone 125 mg chewable tablet 1 tablet TABLET,CHEWABLE Oral 2 Times Daily for 1 Day SatOct 20 13:30:00 EDT 2021Oct 21 13:29:00 EDT 2021 simethicone 125 mg chewable tablet 1 tablet TABLET,CHEWABLE Oral PRN 4 Times Daily SatOct 20 14:00:00 EDT 2021Oct 25 01:00:00 EDT 2021 docusate sodium 100 mg tablet 100 mg TABLET Oral PRN 1 Time Daily SatOct 17 03:00:00 EDT 2021Oct 25 01:00:00 EDT 2021 Stimulant Laxative Plus 8.6 mg-50 mg tablet 1 TAB TABLET Oral 1 Time Daily DX: CONSTIPATION SatOct 11 16:20:00 EDT 2021Oct 25 01:00:00 EDT 2021 furosemide 40 mg tablet 1 TAB TABLET Ora l 1 Time Daily DX: EDEMA SatOct 11 16:21:00 EDT 2021Oct 25 01:00:00 EDT 2021 oxybutynin chloride ER 5 mg tablet,extended release 24 hr 1 TAB TABLET, EXTENDED RELEASE 24 HR Oral 1 Time Daily DX: OVERACTIVE BLADDER SatOct 12 01:00:00 ED2021Oct 25 01:00:00 2021 citalopram 20 mg tablet 1 tablet TABLET Oral 1 Time Daily SatOct 12 01:00:00 2021Oct 25 01:00:00 ED2021 metoprolol succinate ER 50 mg tablet,extended release 24 hr 1 TAB TABLET, EXTENDED RELEASE 24 HR Oral 1 Time Daily DX: HYPERTENSION SatOct 11 16:24:00 ED2021Oct 25 01:00:00 2021 calcium carbonate 600 mg-vitamin D3 10 mcg (400 unit) tablet 2 tablets TABLET Oral 1 Time Daily Supplement SatOct 12 01:00:00 2021Oct 25 01:00:00 2021 calcium carbonate 600 mg-vitamin D3 10 mcg (400 unit) tablet 2 tablets TABLET Oral 1 Time Daily Supplement SatOct 10 16:00:00 2021Oct 11 16:25:00 EDT 2021 Pedro-Gest Antacid 200 mg calcium (500 mg) chewable tablet 1 tablet TABLET,CHEWABLE Oral PRN Every 1 Hour dx indigestionPatient may keep tums at bedside SatOct 09 17:00:00 2021Oct 25 01:00:00 2021 Richard Therapeutic Nutrition Supplement 1 packet Oral 1 Time Daily to enhance healing. SatOct 05 06:35:00 2021Oct 12 15:12:00 2021 citalopram 20 mg tablet 1 tablet TABLET Oral 1 Time Daily SatOct 04 13:00:00 ED2021Oct 11 16:23:00 2021 zolpidem 10 mg tablet 1 TAB TABLET Oral PRN Hour Of Sleep for 90 Days DX: INSOMNIA SatOct 04 13:00:00 2021Oct 25 01:00:00 EDT 2021 Richard Therapeutic Nutrition Supplement 1 packet Oral 1 Time Daily to enhance healing. SatOct 04 15:54:00 EDT 2021Oct 05 06:36:00 2021 TUBErsoL 5 tub. unit/0.1 mL intradermal injection solution Read Results VIAL (ML) Other 1 Time Weekly for 2 Weeks Read results between 48-72 hours after 1st and 2nd (1 week apart). If positive do chest x-ray. SatOct 03 09:00:00 ED2021Oct 17 08:59:00 ED2021 acetaminophen 500 mg tablet 1000mg TABLET Oral PRN Every 6 Hours SatOct 03 13:00:00 EDT 2021Oct 25 01:00:00 EDT 2021 oxyCODONE 5 mg tablet 1/2 tablet-1 table t TABLET Oral PRN Every 4 Hours Pain SatOct 03 13:00:00 ED2021Oct 25 01:00:00 EDT 2021 nystatin 100,000 unit/gram topical powder 1 application POWDER (GRAM) Topical 2 Times Daily Apply nystatin powder to kadeem-area BID until healed SatOct 03 13:00:00 ED2021Oct 25 01:00:00 ED2021 TUBErsoL 5 tub. unit/0.1 mL intradermal injection solution 0.1 ml VIAL (ML) Intradermal 1 Time Weekly for 2 Weeks 1st injection on admission, then one week after. Read between 48 and 72 hours SatSep 30 09:00:00 2021Oct 14 08:59:00 ED2021 acetaminophen 500 mg tablet 2 tabs TABLET Oral Every 8 Hours As needed for pain/elevated temperature pain, no not exceed 4000 mg/ 24 hrs SatSep 30 01:00:00 ED2021Oct 03 13:42:00 ED2021 methocarbamoL 500 mg tablet 1 TAB TABLET Oral 3 Times Daily DX: MUSCLE SPASMS SatSep 30 09:00:00 2021Oct 25 01:00:00 EDT 2021 acetaminophen 500 mg tablet 2 TAB TABLET Oral Every 8 Hours 2 [id number]: PAIN*DO NOT EXCEED 3GM/DAY APAP FROM ALL SOURCES* SatSep 29 15:00:00 EDT 2021Sep 29 17:25:00 ED2021 bisacodyL 10 mg rectal suppository 1 SUPPOSITORY SUPPOSITORY, RECTAL Rectal PRN 1 Time Daily DX: CONSTIPATION SatSep 29 01:00:00 EDT 2021Oct 25 01:00:00 2021 FeroSuL 325 mg (65 mg iron) tablet 1 TAB TABLET Oral 1 Time Daily WITH LUNCHDX: ANEMIA SatSep 30 09:00:00 2021Oct 25 01:00:00 EDT 2021 magnesium 400 mg (as magnesium oxide) tablet 1 TAB TABLET Oral 2 Times Daily DX: SUPPLEMENT SatSep 30 09:00:00 EDT 2021Oct 25 01:00:00 EDT 2021 multivitamin tablet 1 TAB TABLET Oral 1 Time Daily DX: SUPPLEMENT SatSep 30 09:00:00 EDT 2021Oct 25 01:00:00 EDT 2021 oxyCODONE 5 mg tablet 1 CAP TABLET Oral PRN Every 4 Hours DX: PAIN SatSep 29 01:00:00 EDT 2021Oct 03 13:44:00 EDT 2021 ClearLax 17 gram/dose oral powder 17 GRAM POWDER (GRAM) Oral PRN 1 Time Daily DISSOLVE 17 GM (1 CAPFUL) IN LIQUIDDX: CONSTIPATION SatSep 29 01:00:00 EDT 2021Oct 25 01:00:00 EDT 2021 Stimulant Laxative Plus 8.6 mg-50 mg tablet 1 TAB TABLET Oral 1 Time Daily DX: CONSTIPATION SatSep 30 09:00:00 EDT 2021Oct 11 16:21:00 EDT 2021 ergocalciferol (vitamin D2) 1,250 mcg (50,000 unit) capsule 1 CAP CAPSULE Oral Every 7 Days DX: VITAMIN D DEFICIENCY, on saturdayOct 03 09:00:00 EDT 2021Oct 25 01:00:00 EDT 2021 citalopram 40 mg tablet 1 TAB TABLET Ora l 1 Time Daily DX: DEPRESSION SatSep 30 09:00:00 EDT 2021Oct 04 13:23:00 EDT 2021 furosemide 40 mg tablet 1 TAB TABLET Ora l 1 Time Daily DX: EDEMA SatSep 30 09:00:00 EDT 2021Oct 11 16:22:00 EDT 2021 Mucus Relief ER 600 mg tablet, extended release 1 TAB TABLET, EXTENDED RELEASE 12 HR Oral Every 12 Hours DX: COUGH / CONGESTION SatSep 30 09:00:00 ED2021Oct 25 01:00:00 EDT 2021 losartan 50 mg tablet 1 TAB TABLET Oral 1 Time Daily DX: HYPERTENSION SatSep 30 09:00:00 EDT 2021Oct 25 01:00:00 EDT 2021 methocarbamoL 500 mg tablet 1 TAB TABLET Oral 3 Times Daily DX: MUSCLE SPASMS SatSep 29 21:00:00 EDT 2021Sep 30 04:10:00 EDT 2021 oxybutynin chloride ER 5 mg tablet,extended release 24 hr 1 TAB TABLET, EXTENDED RELEASE 24 HR Oral 1 Time Daily DX: OVERACTIVE BLADDER SatSep 30 09:00:00 EDT 2021Oct 11 16:23:00 EDT 2021 Xarelto 20 mg tablet 1 TAB TABLET Oral 1 Time Daily WITH FOODDX: CLOT PREVENTION SatSep 30 09:00:00 EDT 2021Oct 25 01:00:00 EDT 2021 metoprolol succinate ER 50 mg tablet,extended release 24 hr 1 TAB TABLET, EXTENDED RELEASE 24 HR Oral 1 Time Daily DX: HYPERTENSION SatSep 30 09:00:00 EDT 2021Oct 11 16:24:00 EDT 2021 zolpidem 10 mg tablet 1 TAB TABLET Oral PRN Hour Of Sleep DX: INSOMNIA SatSep 29 01:00:00 EDT 2021Oct 04 13:27:00 EDT 2021 Problems Active Concerns * Displaced bicondylar fracture of left tibia, subsequent encounter for closed fracture with routine healing* Code: * Start Date: SatSep 29 00:00:00 EDT 2021 * End Date: * Text: * Presence of other bone and tendon implants* Code: * Start Date: SatSep 29 00:00:00 EDT 2021 * End Date: * Text: * Unspecified fall, subsequent encounter* Code: * Start Date: SatSep 29 00:00:00 EDT 2021 * End Date: * Text: * Hypo-osmolality and hyponatremia* Code: * Start Date: SatSep 29 00:00:00 EDT 2021 * End Date: * Text: * Essential (primary) hypertension* Code: * Start Date: SatSep 29 00:00:00 EDT 2021 * End Date: * Text: * Vitamin D deficiency, unspecified* Code: * Start Date: SatSep 29 00:00:00 EDT 2021 * End Date: * Text: * exterminator (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* Code: * Start Date: SatSep 29 00:00:00 EDT 2021 * End Date: * Text: * Other iron deficiency anemias* Code: * Start Date: SatSep 29 00:00:00 EDT 2021 * End Date: * Text: * Presence of right artificial shoulder joint* Code: * Start Date: SatSep 29 00:00:00 EDT 2021 * End Date: * Text: * Unspecified osteoarthritis, unspecified site* Code: * Start Date: SatSep 29 00:00:00 EDT 2021 * End Date: * Text: * Presence of prosthetic heart valve* Code: * Start Date: SatSep 29 00:00:00 EDT 2021 * End Date: * Text: * Rheumatic mitral valve disease, unspecified* Code: * Start Date: SatSep 29 00:00:00 EDT 2021 * End Date: * Text: * Obstructive sleep apnea (adult) (pediatric)* Code: * Start Date: SatSep 29 00:00:00 EDT 2021 * End Date: * Text: * Longstanding persistent atrial fibrillation* Code: * Start Date: SatSep 29 00:00:00 EDT 2021 * End Date: * Text: * Major depressive disorder, single episode, unspecified* Code: * Start Date: SatSep 29 00:00:00 EDT 2021 * End Date: * Text: * Generalized anxiety disorder* Code: * Start Date: SatSep 29 00:00:00 EDT 2021 * End Date: * Text: * Insomnia due to other mental disorder* Code: * Start Date: SatSep 29 00:00:00 EDT 2021 * End Date: * Text: * Hypomagnesemia* Code: * Start Date: SatSep 29 00:00:00 EDT 2021 * End Date: * Text: * Slow transit constipation* Code: * Start Date: SatSep 29 00:00:00 EDT 2021 * End Date: * Text: * Drug induced constipation* Code: * Start Date: SatSep 29 00:00:00 EDT 2021 * End Date: * Text: * Adverse effect of other opioids, subsequent encounter* Code: * Start Date: SatSep 29 00:00:00 EDT 2021 * End Date: * Text: * Overactive bladder* Code: * Start Date: SatSep 29 00:00:00 EDT 2021 * End Date: * Text: * Other disorders of plasma-protein metabolism, not elsewhere classified* Code: * Start Date: SatSep 29 00:00:00 EDT 2021 * End Date: * Text: * Candidiasis of skin and nail* Code: * Start Date: SatSep 29 00:00:00 EDT 2021 * End Date: * Text: Reason for Referral Past Medical History Resolved Concerns * Problem Unspecified atrial fibrillation* Code: * Start Date: SatSep 29 00:00:00 EDT 2021 * End Date: SatOct 03 00:00:00 EDT 2021
--- OUTSIDE RECORDS SUMMARY | 2024-07-09 14:53 | XMS_ITS | Clinical Summary ---
Author Organization [facility] Address [address] [place] [address] Care Team Providers Care Aerodynamics Engineer Name Role Phone Shannan Dennis MD Primary Care Provider [phone] Allergies Active Allergy Reactions Criticality Noted Date Comments Lisinopril Cough Low 06/24/2017 Morphine Itching Low 12/06/2009 Medications vitamin C 500 MG Chew Tab chewable tablet Acti ve cetirizine 10 MG tablet Indications: once a day Active Cholecalciferol 50 MCG (1999 UT) Cap Take 2,000 Units by mouth once a week. Active citalopram 40 MG tablet Active furosemide 40 MG tablet Take 1 tablet (40 mg total) by mouth daily. Active losartan 50 MG tablet Take 1 tablet (50 mg total) by mouth daily. 03/31/2021 Active potassium chloride CR 20 MEQ Tab CR tablet 01/30/2021 Active rivaroxaban (XARELTO) 20 MG Tab tablet Take 1 tablet (20 mg total) by mouth daily. 01/31/2021 Active zolpidem 10 MG tablet Active vitamin D2, ergocalciferol, 01448 UNITS capsule TAKE 1 CAPSULE BY MOUTH ONCE EVERY WEEK. 04/14/2021 Active oxybutynin XL 5 MG 24 hr tablet 05/20/2021 Act ana methocarbamol 500 MG tablet Take 1 tablet (500 mg total) by mouth 3 (three) times daily. 07/28/2021 Active metoprolol succinate ER (TOPROL-XL) 50 MG 24 hr tablet Take by mouth daily. Active azelastine (ASTELIN) 0.1 % nasal spray 1 spray by Nasal route 2 (two) times daily. 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 Gastroesophageal reflux disease without esophagi tis 09/03/2023 Oropharyngeal dysphagia 09/03/2023 Cough 09/03/2023 Family History Medical History Relation Comments Esophageal cancer Brother Other Brother Esophageal cancer Father esophageal cancer Father CHF Mother Relation Status Comments Brother Father Mother Other Alive Social History Tobacco Use Types Packs/Day Years Used Date Smoking Tobacco: Never Smokeless Tobacco: Never Tobacco Cessation:Counseling Given: Not Answered Alcohol Use Standard Drinks/Week Comments Yes 25 (1 standard drink = 0.6 oz pu re alcohol) PHQ-2 Answer Date Recorded Patient Health Questionnaire-2 Score 0 09/02/2023 Comments No Sex and Gender Information Value Date Recorded Sex Assigned at Female 12/12/2023 8:06 AM CDT Legal Sex Female 5:17 PM CDT Gender Identity Not on file Sexual Orientation Not on file Last Filed Vital Signs Vital Sign Reading Time Taken Comments Blood Pressure 100/55 10/02/2023 2:45 PM CDT Pulse 59 10/02/2023 2:45 PM CDT Temperature 36.1 C (97 F) 10/02/2023 2:21 PM CDT Respiratory Rate 18 10/02/2023 2:45 PM CDT Oxygen Saturation 94% 10/02/2023 2:45 PM CDT Inhaled Oxygen Concentration - - Weight 74.8 kg (165 lb) 09/20/2023 3:22 PM CDT Height 157.5 cm (5' 2 ) 09/20/2023 3:22 PM CDT Body Mass Index 30.18 09/20/2023 3:22 PM CDT Plan of Treatment Health Maintenance Due Date Last Done Comments Hepatitis C 12/25/1969 DTaP, Tdap and Td Vaccines (1 - Tdap) 12/25/1970 Zoster Vaccines (2 of 3) 05/07/2013 03/12/2013 Annual Medicare Wellness Visit 12/25/2016 Dexa Scan (General) 12/25/2016 Pneumococcal Vaccine: 65+ Years (1 of 1 - PCV) 12/25/2016 Mammogram Screening 07/30/2018 07/30/2016, 03/16/2015, 02/10/2014, Additional history exists COVID-19 Vaccine ( season) 2023 03/19/2021, 06/16/2020, 05/27/2020 PHQ-2 (Physician [place]) 04/01/2024 09/02/2023 RSV Immunization or 60+ Years (1 - 1-dose 75+ series) 12/25/2026 Colorectal Cancer Screening Colonoscopy (10 Years) 04/12/2031 04/12/2021, 04/12/2021 EGD-Gregory's Surveillance Discontinued 11/15, 08/08/2021, 04/12/2021 Meningococcal B Vaccine Aged Out No l onger eligible based on patient's age to complete this topic Meningococcal Vaccine Aged Out No irma jeremías eligible based on patient's age to complete this topic RSV Immunizations Under 20 Months Aged Out No longer eligible based on patient's age to complete this topic Medical Devices Implanted Type Area Hand Former Device Identifier Shelf Expiration Date Model / Serial / Lot Shoulder Description:Rods/ pins metal shoulder to elbow on Rt. Procedures Procedure Name Priority Date/Time Associated Diagnosis Comments EGD Routine 11/15/2022 8:57 AM CDT COLONOSCOPY Routine 04/12/2021 12:34 PM THIRD HELPER from Last 3 Months or Most Recently Relevant to Health Maintenance Insurance MEDICARE [facility] AOT Bedding [employer] [facility] Care Teams Aerodynamics Engineer Relationship Specialty Start Date End Date Shannan Dennis MD [address] [place] [address] PCP - General FAMILY PRACTICE 04/12/21
--- OUTSIDE RECORDS SUMMARY | 2024-07-09 14:53 | XMS_ITS | Encounter Summary ---
Author Organization [facility] Address [address] [place] [address] Phone Care Team Providers Care Pharmacy Technician Inpatient Name Role Phone Shannan Dennis MD Primary Care Provider Nacho Pina MD Unavailable [phone] Ovidio Villagran MD Unavailable [phone] Encounter Details Date Type Department Care Team (Late st Contact Info) Description 07/08/[address] [facility] [address] [facility] [address] [place] [address] [place] [address] Sharyn Garcia MD [address] [facility] [address] [place] [address] Social History Tobacco Use Types Packs/Day Years Used Date Smoking Tobacco: Never Smokeless Tobacco: Never Alcohol Use Standard Drinks/Week Comments Yes 14 (1 standard drink = 0.6 oz pu re alcohol) AUDIT-C Answer Date Recorded Q1: How often do you have a drink containing alcohol? 4 or more times a week 04/27/2024 Q2: How many drinks containi ng alcohol do you have on a typical day when you are drinking? 1 or 2 Q3: How often do you have si x or more drinks on one occasion? Never 04/27/2024 Personal Safety Answer Date Recorded Have you ever been in or are you currently in a harmful physical or emotional relationship or is someone making you feel afraid or unsafe? Denies 05/08/2024 Comments No Sex and Gender Information Value Date Recorded Sex Assigned at Not on file Legal Sex Female 10:24 AM BRAID FOLDER Gender Identity Not on file Sexual Orientation Not on file documented as of this encounter Miscellaneous Notes * Telephone Encounter - Vivian Mckeon RN - 07/08/2024 4:14 PM CDT Returned patient's call stating that she didn't receive the tramadol that was sent to her pharmacy after her last appointment on 06/22/24. Chart was reviewed and tramadol 50mg #30 was sent to the pharmacy and receipt was received. She is going to call her pharmacy because she doesn't think she ever picked it up. documented in this encounter Plan of Treatment Not on file documented as of this encounter Goals Goal Patient Goal Type Associated Problems Recent Progress Patient-Stated? Author CCM Chronic Pain Care Plan Chronic Care Management Improving( 1:46 PM CDT) No Lacy Becerril RN Note: Problem: Chronic Pain Goals: 1. Minimize further functional decline 2. Maximize quality of life 3. Control pain Strategies: - Activity/exercise program recommendation - Conservative stepwise pain medicine strategy with multi-disciplinary approach - Recommend healthy lifestyle strategies and compensatory methods as needed documented as of this encounter Visit Diagnoses Not on filedocumented in this encounter Care Teams Pharmacy Technician Inpatient Relationship Specialty Start Date End Date Shannan Dennis MD PCP - General 06/29/16 Nacho Pina MD [address] [facility] [address] [place] [address] Digital Sales Manager Cardiology 04/07/24 Ovidio Villagran MD [address] [place] [address] Mortising Machine Operator Critical Care Med 04/07/24 documented as of this encounter
--- OUTSIDE RECORDS SUMMARY | 2024-07-09 14:53 | XMS_ITS | Encounter Summary ---
Author Organization [facility] Address [address] [facility] [address] [place] [address] Care Team Providers Care Sole Scraper Name Role Phone Shannan Dennis MD Primary Care Provider [phone] Shannan Dennis MD Primary Care Provider [phone] Nacho Pina MD Unavailable [phone] Ovidio Villagran MD Unavailable [phone] Encounter Details Date Type Department Care Team (Late st Contact Info) Description 03/27/2016 Orders Only [facility] ProviderKonstatnin MD [address] [place] [address] Social History Tobacco Use Types Packs/Day Years Used Date Smoking Tobacco: Never Alcohol Use Standard Drinks/Week Comments Yes 0 (1 standard drink = 0.6 oz pur e alcohol) Comments Unknown Sex and Gender Information Value Date Recorded Sex Assigned at Not on file Legal Sex Female 10:24 AM RELIEF SALESPERSON Gender Identity Not on file Sexual Orientation Not on file documented as of this encounter Plan of Treatment Not on file documented as of this encounter Procedures Procedure Name Priority Date/Time Associated Diagnosis Comments CARDIOLOGY REPORT 03/27/2016 documented in this encounter Results * CARDIOLOGY REPORT (03/27/2016) Anatomical Region Laterality Modality Other Narrative 03/27/2016 Ordered by an unspecified provider. Historical Provider [facility] JULEE WHALEY Final Result documented in this encounter Visit Diagnoses Not on filedocumented in this encounter Care Teams Sole Scraper Relationship Specialty Start Date End Date Shannan Dennis MD PCP - General 06/29/16 Shannan Dennis MD PCP - General 04/12/09 06/28/16 Nacho Pina MD [address] [facility] [address] [place] [address] Tension Machine Operator Cardiology 04/07/24 Ovidio Villagran MD [address] [place] [address] Graffiti Cleaner Critical Care Med 04/07/24 documented as of this encounter
--- OUTSIDE RECORDS SUMMARY | 2024-07-09 14:53 | XMS_ITS | Referral Summary ---
Author Organization [facility] [address] Address [address] [place] [address] Care Team Providers Care Classified Ad Taker Name Role Phone Shannan Dennis MD Primary Care Provider Nacho Pina MD Unavailable Ovidio Villagran MD Unavailable [phone] Encounters Date Type Department Care Team Description 07/08/[address] [facility] Orthopaedic Surgery [address] [facility] 12th [place] [address] [place] [address] Sharyn Garcia MD 06/22/2024 2:45 PM CDT - 06/22/2024 11:59 PM CDT Hospital Encounter [facility] [address] [place] [address] Status post reverse arthroplasty of left shoulder Discharge Disposition: Discharge to home or self care 06/22/2024 3:00 PM CDT Office Visit [facility] Orthopaedic Surgery [address] [facility] 12th [place] [address] [place] [address] Sharyn Garcia MD Status post reverse arthroplasty of left shoulder (Primary Dx) 05/25/2024 11:00 AM REAL ESTATE AGENCY PRINCIPAL - 05/25/2024 11:59 PM REAL ESTATE AGENCY PRINCIPAL Hospital Encounter [facility] [address] [place] [address] Status post orthopedic surgery, follow-up exam Discharge Disposition: Discharge to home or self care 05/25/2024 11:15 AM REAL ESTATE AGENCY PRINCIPAL Office Visit [facility] Orthopaedic Surgery [facility] 12th [place] [address] [place] [address] Sharyn Garcia MD Status post reverse arthroplasty of left shoulder (Primary Dx); Status post orthopedic surgery, follow-up exam 05/08/2024 10:09 AM REAL ESTATE AGENCY PRINCIPAL - 05/09/2024 11:37 AM REAL ESTATE AGENCY PRINCIPAL Hospital Encounter [facility] [address] [place] [address] Sharyn Garcia MD Left rotator cuff tear arthropathy (Primary Dx) Discharge Disposition: Discharge to home or self care 05/08/2024 2:20 PM REAL ESTATE AGENCY PRINCIPAL - 05/08/2024 5:30 PM REAL ESTATE AGENCY PRINCIPAL Surgery [facility] Operating Room [address] [place] [address] Sharyn Garcia MD Left Reverse Shoulder Arthroplasty 05/08/2024 1:52 PM REAL ESTATE AGENCY PRINCIPAL Anesthesia Event [facility] Operating Room [address] [place] [address] Adebayo Shea MD Mallette, Allison Anne, NP 05/06/[address] [facility] Orthopaedic Surgery [address] [place] [address] [place] [address] [place] [address] Sharyn Garcia MD 04/30/2024 1:45 PM REAL ESTATE AGENCY PRINCIPAL Office Visit [facility] [address] [facility] [address] [place] [phone] Nacho Pina MD Pre-op evaluation (Primary Dx); ANAM (obstructive sleep apnea); Cardiomyopathy, nonischemic (HCC); PAF (paroxysmal atrial fibrillation) (HCC); Status post mitral valve repair; Ventricular premature beats 04/27/2024 2:00 PM REAL ESTATE AGENCY PRINCIPAL Office Visit [facility] Orthopaedic Surgery [facility] 12th [place] [address] [place] [address] Sharyn Garcia MD Rotator cuff arthropathy of left shoulder (Primary Dx) 04/27/2024 4:55 PM REAL ESTATE AGENCY PRINCIPAL - 04/27/2024 11:59 PM REAL ESTATE AGENCY PRINCIPAL Hospital Encounter [facility] [address] [place] [address] Sharyn Garcia MD Rotator cuff arthropathy of left shoulder; Left shoulder pain, unspecified chronicity Discharge Disposition: Discharge to home or self care 04/27/2024 3:00 PM REAL ESTATE AGENCY PRINCIPAL Pre-Admission Testing [facility] [address] [place] [id number] Preoperative testing (Primary Dx); Left rotator cuff tear arthropathy; Vitamin D deficiency from Last 3 Months Allergies Active Allergy Reactions Criticality Noted Date Comments Lisinopril Cough Low 06/24/2017 Morphine Itching Low 12/06/2009 Medications ascorbic acid (VITAMIN C) 500 mg tablet,chewableI ndications:Suppl ement Take 2 tablet/chew tab (1,000 mg total) by mouth nightly Active cholecalciferol (VITAMIN D-3) 2000 unit capsuleIndicatio ns:Vitamin D Deficiency Take 1 capsule (2,000 Units total) by mouth nightly Active citalopram (CeleXA) 40 mg tabletIndication s:Vasomotor Symptoms associated with Menopause, Mood Take 1 tablet (40 mg total) by mouth every morning 11/18/19 20 Active LACTOBACILLUS ACIDOPHILUS ORAL Take 1 capsule by mouth peoplesoft consultant before breakfast 11/18/19 20 Active metoprolol XL (TOPROL-XL) 50 mg extended release tabletIndication s:Atrial Arrhythmia Take 1 tablet (50 mg total) by mouth peoplesoft consultant before breakfast 11/18/19 20 Active ergocalciferol (VITAMIN D) 50,000 unit capsule 03/22/20 21 Active potassium chloride ER (KLOR-CON) 20 mEq CR tabletIndication s:Due to Lasix Take 1 tablet (20 mEq total) by mouth nightly 11/18/19 20 Active zinc 50 mg tabletIndication s:Supplement Take 1 tablet by mouth every evening 11/18/19 20 Active zolpidem (AMBIEN) 10 mg tabletIndication s:Sleep-Onset Insomnia Take 0.5 tablets (5 mg total) by mouth nightly as needed for sleep 11/18/19 20 Active azelastine (ASTELIN) 137 mcg (0.1 %) nasal spray USE 1 SPRAY IN EACH NOSTRIL EVERY 12 HOURS 08/15/19 23 Active methocarbamoL (ROBAXIN) 500 mg tablet Take 1 tablet (500 mg total) by mouth 3 (three) times a day 90 tablet 1 10/11/19 23 Active losartan (COZAAR) 50 mg tablet TAKE 1 TABLET BY MOUTH EVERY DAY 90 tablet 2 06/06/19 24 Active Additional Information Patient taking differently: 50 mg oral Daily (early AM), Indications: hypertension, Informant: Self, Reported on 05/08/2024 albuterol HFA (PROVENTIL HFA,VENTOLIN HFA,PROAIR HFA) 90 mcg/actuation inhalerIndicatio ns:SOB Inhale 2 puffs every 4 (four) hours as needed for wheezing or shortness of breath 08/20/19 24 Active oxyBUTYnin XL (DITROPAN-XL) 10 mg 24 hr tabletIndication s:Bladder Hyperactivity,Ur inary Urge Incontinence,Uri nary Urgency Take 1 tablet (10 mg total) by mouth peoplesoft consultant before breakfast 04/14/19 25 Active magnesium glycinate 100 mg tabletIndication s:Supplement Take 1,000 mg by mouth nightly Active cetirizine-pseud oephedrine ER (ZyrTEC-D) 5-120 mg per 12 hr tabletIndication s:Nasal Congestion Take 1 tablet by mouth 2 (two) times a day as needed for allergies (Congestion) Active turmeric root extract 500 mg capsuleIndicatio ns:Supplement Take 1 tablet/chew tab by mouth peoplesoft consultant before breakfast Active UNABLE TO FINDIndications: Supplement Take by mouth peoplesoft consultant before breakfast Med Name: Beet Active collagen, hydrolysate, bovine, (collagen, hydr, bovine,, bulk,) 100 % powderIndication s:Supplement Take 1 packet by mouth peoplesoft consultant before breakfast Active celecoxib (CeleBREX) 100 mg capsuleIndicatio ns:Postoperative Acute Pain Take 1 capsule (100 mg total) by mouth 2 (two) times a day for 14 days 28 capsule 05/09/19 25 Active docusate sodium (COLACE) 100 mg capsuleIndicatio ns:constipation Take 1 capsule (100 mg total) by mouth 2 (two) times a day 60 capsule 05/09/19 25 Active acetaminophen (TYLENOL) 500 mg tabletIndication s:Pain Take 2 tablets (1,000 mg total) by mouth every 6 (six) hours 120 tablet 05/09/19 25 Active furosemide (LASIX) 40 mg tabletIndication s:Peripheral Edema due to Chronic Heart Failure Take 1 tablet (40 mg total) by mouth peoplesoft consultant before breakfast 90 tablet 1 06/18/19 25 Active rivaroxaban (Xarelto) 20 mg tabletIndication s:atrial fibrillation Take 1 tablet (20 mg total) by mouth peoplesoft consultant before breakfast 90 tablet 1 06/18/19 25 Active traMADoL (ULTRAM) 50 mg tablet Take 1 tablet (50 mg total) by mouth every 6 (six) hours as needed for pain 30 tablet 06/23/19 25 Active rivaroxaban (Xarelto) 20 mg tablet TAKE 1 TABLET BY MOUTH EVERY DAY 90 tablet 2 11/25/19 24 025 Discontin ued(Reord er) furosemide (LASIX) 40 mg tablet TAKE 1 TABLET BY MOUTH DAILY 210 tablet 2 12/25/19 24 025 Discontin ued(Reord er) traMADoL (ULTRAM) 50 mg tablet Take 1 tablet (50 mg total) by mouth every 6 (six) hours as needed for pain 30 tablet 05/09/19 25 025 Discontin ued(Reord er) Active Problems Problem Noted Date Diagnosed Date Left shoulder pain 05/08/2024 Pre-op evaluation 04/30/2024 Left rotator cuff tear arthropathy 04/07/2024 ANAM (obstructive sleep apnea) 07/27/2021 Status post mitral valve repair 11/27/2019 Cardiomyopathy, nonischemic 11/27/2019 Chronic anticoagulation 09/21/2019 Abdominal pain, right upper quadrant 11/12/2018 Anemia 11/12/2018 Arthropathy 11/12/2018 Bloating 11/12/2018 Diabetes 11/12/2018 Diarrhea 11/12/2018 Mitral valve disorder 11/12/2018 GERD (gastroesophageal reflux disease) 9 PAF (paroxysmal atrial fibrillation) 12/31/2017 Non-rheumatic mitral regurgitation 05/04/2016 Overview (07/05/2016): Nonrheumatic mitral valve regurgitation SOB (shortness of breath) 05/04/2016 Overview (07/05/2016): Shortness of breath Palpitations 05/04/2016 Overview (07/05/2016): Palpitations Ventricular premature beats 05/04/2016 Overview (07/05/2016): Ventricular ectopy Essential hypertension 05/04/2016 Overview (07/05/2016): Essential hypertension Hyperlipidemia LDL goal <100 05/04/2016 Overview (07/05/2016): Hyperlipidemia LDL goal <100 History of abdominal hernia 05/04/2016 Overview (07/05/2016): History of hiatal hernia Irritable bowel syndrome with diarrhea 6 Family history of malignant neoplasm of breast 1 04/17/2013 Family history of pancreatic cancer 02/15/2014 Lump or mass in breast 01/20/2014 Benign neoplasm of pituitary gland 08/15/2013 Overview (07/05/2016): BENIGN ADAM PITUITARY Hiatal hernia 05/14/2013 Arthralgia of shoulder 01/21/2013 S/P reduction mammoplasty 12/06/2009 MVP (mitral valve prolapse) 12/06/2009 Acquired deformity of joint of foot 12/01/2008 Resolved Problems Problem Noted Date Diagnosed Date Resolved Date Atrial fibrillation, persistent 11/03/2019 11/27/2019 Overview (11/03/2019): Added automatically from request for surgery [id number] Social History Tobacco Use Types Packs/Day Years Used Date Smoking Tobacco: Never Smokeless Tobacco: Never Tobacco Cessation:Counseling Given: Not Answered Alcohol Use Standard Drinks/Week Comments Yes 14 [...] on file Legal Sex Female 10:24 AM REAL ESTATE AGENCY PRINCIPAL Gender Identity Not on file Sexual Orientation Not on file Last Filed Vital Signs Vital Sign Reading Time Taken Comments Blood Pressure 127/67 05/09/2024 8:12 AM REAL ESTATE AGENCY PRINCIPAL Pulse 65 05/09/2024 8:12 AM REAL ESTATE AGENCY PRINCIPAL Temperature 36.4 C (97.5 F) 05/09/2024 4:39 AM REAL ESTATE AGENCY PRINCIPAL Respiratory Rate 18 05/09/2024 4:39 AM REAL ESTATE AGENCY PRINCIPAL Oxygen Saturation 96% 05/09/2024 8:12 AM REAL ESTATE AGENCY PRINCIPAL Inhaled Oxygen Concentration - - Weight 70.3 kg (155 lb) 05/08/2024 11:19 AM REAL ESTATE AGENCY PRINCIPAL Height 157.5 cm (5' 2 ) 05/08/2024 11:19 AM REAL ESTATE AGENCY PRINCIPAL Body Mass Index 28.35 05/08/2024 11:19 AM REAL ESTATE AGENCY PRINCIPAL Plan of Treatment Not on file Goals Goal Patient Goal Type Associated Problems Recent Progress Patient-Stated? Author CCM Chronic Pain Care Plan Chronic Care Management Improving( 1:46 PM CDT) No Lacy Becerril, RN Note: Problem: Chronic Pain Goals: 1. Minimize further functional decline 2. Maximize quality of life 3. Control pain Strategies: - Activity/exercise program recommendation - Conservative stepwise pain medicine strategy with multi-disciplinary approach - Recommend healthy lifestyle strategies and compensatory methods as needed Medical Devices Implanted Type Area Collection Supervisor Device Identifier Shelf Expiration Date Model / Serial / Lot [employer] [id number] Muriel-Edwa rds Physio Ii 36mm Joy Mitral Ring Annuloplasty - [id number] - [id number] Implanted:Qty: 1 on 11/11/2019 by Ovidio Bryant MD at [facility] Other - see comments N/A: Mitral Valve [employer] 07/12/2024 [id number] / [id number] / Description:Annuloplasty Rin g [employer] Aequalis Perform Od25 Mm Augment 35 D Half Wedge Baseplate Glenoid [id number] - [id number] Implanted:Qty: 1 on 05/08/2024 by Sharyn Garcia MD at [facility] Left: Shoulder [employer] [id number] / / [employer] Aequalis Perform Reversed Od6.5 Mm L30 Mm Central Glenoid Screw Baseplate Nonsterile [id number] - [id number] Implanted:Qty: 1 on 05/08/2024 by Sharyn Garcia MD at [facility] Left: Shoulder [employer] [id number] / / [employer] Aequalis Perform Reversed 5mm 18mm Peripheral Glenoid Screw [id number] - [id number] Implanted:Qty: 2 on 05/08/2024 by Sharyn Garcia MD at [facility] Left: Shoulder [employer] [id number] / / [employer] Screw Glenoid Locking Reverse Aequalis Perform 5.0x22mm Titanium [id number] - [id number] Implanted:Qty: 1 on 05/08/2024 by Sharyn Garcia MD at [facility] Left: Shoulder [employer] [id number] / / [employer] Glenosphere Cannulated Reversed Standard Cochrane Chromium Tornier Perform 36mm [id number] - [id number] - [id number] Implanted:Qty: 1 on 05/08/2024 by Sharyn Garcia MD at [facility] Left: Shoulder [employer] [id number] 06/04/2028 [id number] / [id number] / [employer] Stem Humeral Shoulder Reverse Aequalis Perform [id number] - [id number] Implanted:Qty: 1 on 05/08/2024 by Sharyn Garcia MD at [facility] Left: Shoulder [employer] [id number] / / [employer] Insert Humeral 10 Degree Reverse Size 1/2 +0 Perform 36mm Combination [id number] - [id number] Implanted:Qty: 1 on 05/08/2024 by Sharyn Garcia MD at [facility] Left: Shoulder [employer] [id number] / / Procedures Procedure Name Priority Date/Time Associated Diagnosis Comments XR SHOULDER LEFT 2 OR MORE VIEWS Schedule Routine, Read Routine (OP Routine) 06/22/2024 3:10 PM CDT Status post reverse arthroplasty of left shoulder XR SHOULDER LEFT 2 OR MORE VIEWS Schedule Routine, Read Routine (OP Routine) 05/25/2024 11:13 AM REAL ESTATE AGENCY PRINCIPAL Status post orthopedic surgery, follow-up exam EGFR Timed 05/09/2024 6:07 AM REAL ESTATE AGENCY PRINCIPAL DIFFERENTIAL AUTO Routine 05/09/2024 6:0 7 AM REAL ESTATE AGENCY PRINCIPAL CBC WITH AUTO DIFFERENTIAL Routine 05/09/2024 6:07 AM REAL ESTATE AGENCY PRINCIPAL BASIC METABOLIC PANEL Timed 05/09/2024 6:07 AM REAL ESTATE AGENCY PRINCIPAL POC BLOOD GAS AND CHEMISTRIES, VENOUS Routine 05/08/2024 5:06 PM REAL ESTATE AGENCY PRINCIPAL XR SHOULDER LEFT 2 OR MORE VIEWS IP Routine 05/08/2024 4:27 PM REAL ESTATE AGENCY PRINCIPAL KY AN PROCEDURE PLACEHOLDER Routine 05/08/2024 2:22 PM REAL ESTATE AGENCY PRINCIPAL KY AN ELECTIVE ENDOTRACHEAL AIRWAY Routine 05/08/2024 2:22 PM REAL ESTATE AGENCY PRINCIPAL ARTHROPLASTY SHOULDER - REVERSE TOTAL 05/08/2024 1:52 PM REAL ESTATE AGENCY PRINCIPAL Left rotator cuff tear arthropathy Special Needs Kristian Perform, Beach Chair with Trimano, Sling Shot with Pillow, Ice Machine KY AN PROCEDURE PLACEHOLDER Routine 05/08/2024 1:30 PM REAL ESTATE AGENCY PRINCIPAL KY AN PROCEDURE PLACEHOLDER Routine 05/08/2024 1:18 PM REAL ESTATE AGENCY PRINCIPAL CT SHOULDER LEFT WO CONTRAST Schedule Routine, Read Routine (OP Routine) 04/27/2024 5:12 PM REAL ESTATE AGENCY PRINCIPAL Rotator cuff arthropathy of left shoulder Left shoulder pain, unspecified chronicity EGFR Routine 04/27/2024 4:51 PM REAL ESTATE AGENCY PRINCIPAL Left rotator cuff tear arthropathy DIFFERENTIAL AUTO Routine 04/27/2024 4:5 1 PM REAL ESTATE AGENCY PRINCIPAL Preoperative testing TYPE AND SCREEN 14 DAY Routine 04/27/2024 4:51 PM REAL ESTATE AGENCY PRINCIPAL Preoperative testing CBC WITH AUTO DIFFERENTIAL Routine 04/27/2024 4:51 PM REAL ESTATE AGENCY PRINCIPAL Preoperative testing VITAMIN D 25 HYDROXY Routine 04/27/2024 4:51 PM REAL ESTATE AGENCY PRINCIPAL Left rotator cuff tear arthropathy Vitamin D deficiency COMPREHENSIVE METABOLIC PANEL Routine 04/27/2024 4:51 PM REAL ESTATE AGENCY PRINCIPAL Left rotator cuff tear arthropathy ECG 12-LEAD Routine 04/27/2024 3:50 PM REAL ESTATE AGENCY PRINCIPAL Preoperative testing POCT LIPID PANEL Routine 09/13/2023 2:22 PM CDT Hyperlipidemia LDL goal <100 HEMOGLOBIN A1C STAT 11/11/2019 6:17 AM CDT from Last 3 Months or Most Recently Relevant to Health Maintenance Results * XR Shoulder Left 2 or More Views (06/22/2024 3:10 PM CDT) Anatomical Region Laterality Modality Upper Extremities, Shoulder Left Comp uted Radiography 06/22/2024 4:07 PM CDT Impressions 06/22/2024 4:07 PM CDT Unchanged reverse [id number] total left shoulder arthroplasty in near anatomic position. Electronically signed by: Danielito Solomon MD Narrative 06/22/2024 4:07 PM CDT EXAMINATION: XR SHOULDER LEFT 2 OR MORE VIEWS HISTORY: Rotator cuff tendon tear, left shoulder osteoarthritis FINDINGS: Comparison dated 05/25/2024. Reverse stcq-fei-nmhblh total left shoulder arthroplasty in near anatomic position. No periprosthetic fracture. Heterotopic ossification is noted inferior to the glenosphere. The appearance of the acromion is unchanged. No definite acromial fracture is seen. 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 Median sternotomy wires remain in place. Vascular calcifications. Procedure Note Danielito Solomon MD - 06/22/2024 EXAMINATION: XR SHOULDER LEFT 2 OR MORE VIEWS HISTORY: Rotator cuff tendon tear, left shoulder osteoarthritis FINDINGS: Comparison dated 05/25/2024. Reverse ynbe-ysc-kktbsj total left shoulder arthroplasty in near anatomic position. No periprosthetic fracture. Heterotopic ossification is noted inferior to the glenosphere. The appearance of the acromion is unchanged. No definite acromial fracture is seen. 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 Median sternotomy wires remain in place. Vascular calcifications. IMPRESSION: Unchanged reverse uncr-zvg-rjqzmi total left shoulder arthroplasty in near anatomic position. Electronically signed by: Danielito Solomon MD us Sharyn Garcia MD IMG XR PROCEDURES Fin al Result * XR Shoulder Left 2 or More Views (05/25/2024 11:13 AM REAL ESTATE AGENCY PRINCIPAL) Anatomical Region Laterality Modality Upper Extremities, Shoulder Left Comp uted Radiography 05/25/2024 11:3 4 AM REAL ESTATE AGENCY PRINCIPAL Impressions 05/25/2024 11:34 AM REAL ESTATE AGENCY PRINCIPAL Unchanged reverse total left glenohumeral arthroplasty in expected position. Electronically signed by: Tre Stern M.D. Narrative 05/25/2024 11:34 AM REAL ESTATE AGENCY PRINCIPAL XR SHOULDER LEFT 2 OR MORE VIEWS HISTORY: Left shoulder arthroplasty. FINDINGS: 2 views of the left shoulder are obtained and compared with 05/08/2024. There is redemonstrated reverse total left glenohumeral arthroplasty. Orthopedic components are in expected position. There is no periprosthetic fracture or osteolysis. Unchanged severe acromioclavicular osteoarthritis with surrounding heterotopic ossification. Soft tissues are normal. Procedure Note Tre Stern MD - 05/25/2024 XR SHOULDER LEFT 2 OR MORE VIEWS HISTORY: Left shoulder arthroplasty. FINDINGS: 2 views of the left shoulder are obtained and compared with 05/08/2024. There is redemonstrated reverse total left glenohumeral arthroplasty. Orthopedic components are in expected position. There is no periprosthetic fracture or osteolysis. Unchanged severe acromioclavicular osteoarthritis with surrounding heterotopic ossification. Soft tissues are normal. IMPRESSION: Unchanged reverse total left glenohumeral arthroplasty in expected position. Electronically signed by: Tre Stern M.D. us Sharyn Garcia MD IMG XR PROCEDURES Fin al Result * eGFR (05/09/2024 6:07 AM REAL ESTATE AGENCY PRINCIPAL) eGFR >90 >=60 mL/min/1. 73 m2 Comment: Interpretive Data Reference Interval Normal >/= 90 mL/min/1.73m2 Mildly decreased* 60 - 89 mL/min/1.73m2 Mildly to moderately decreased 45 - 59 mL/min/1.73m2 Moderately to severely decreased 30 - 44 mL/min/1.73m2 Severely decreased 15 - 29 mL/min/1.73m2 Kidney Failure < 15 mL/min/1.73m2 *Relative to young adult level Estimated glomerular filtration rate is determined by the 2020 CKD-EPI equation recommended by the National Kidney Foundation (A Unifying Approach to GFR Estimation: Recommendations of the NKF-ASK Task Force on Reassessing the Inclusion of Race in Diagnosing Kidney Disease, JASN 2020). The CKD-EPI equation should not be used for patients with unstable renal function and has not been validated in children and those over 70. Current interpretive data was last reviewed 2021. Blood 05/09/2024 6:07 AM REAL ESTATE AGENCY PRINCIPAL 05/09/2024 7:46 AM REAL ESTATE AGENCY PRINCIPAL Sarmad Duckworth MD LAB BLOOD ORDERABLES Final Result [facility] Department [place] [address] * Differential, auto (05/09/2024 6:07 AM REAL ESTATE AGENCY PRINCIPAL) Neutrophil abs 4.9 1.5 - 6.5 K/cumm Imm gran abs 0.0 0.0 - 0.1 K/cumm [facility] Lymphocyte abs 0.9 0.8 - 3.3 K/cumm [facility] Monocyte abs 0.5 0.2 - 0.8 K/cumm [facility] Eosinophil abs 0.0 0.0 - 0.5 K/cumm [facility] Basophil abs 0.0 0.0 - 0.1 K/cumm [facility] Neutrophil pct 77.9 % [facility] Comment: Interpretive Data Percent cell count reference ranges are not reported, since discordance with absolute values may lead to misinterpretation of CBC data. Current Interpretive Data was last revised on 2017. Imm gran pct 0.6 % [facility] Comment: Interpretive Data Percent cell count reference ranges are not reported, since discordance with absolute values may lead to misinterpretation of CBC data. Current Interpretive Data was last revised on 2017. Lymphocyte pct 13.7 % [facility] Comment: Interpretive Data Percent cell count reference ranges are not reported, since discordance with absolute values may lead to misinterpretation of CBC data. Current Interpretive Data was last revised on 2017. Monocyte pct 7.4 % [facility] Comment: Interpretive Data Percent cell count reference ranges are not reported, since discordance with absolute values may lead to misinterpretation of CBC data. Current Interpretive Data was last revised on 2017. Eosinophil pct 0.2 % [facility] Comment: Interpretive Data Percent cell count reference ranges are not reported, since discordance with absolute values may lead to misinterpretation of CBC data. Current Interpretive Data was last revised on 2017. Basophil pct 0.2 % [facility] Comment: Interpretive Data Percent cell count reference ranges are not reported, since discordance with absolute values may lead to misinterpretation of CBC data. Current Interpretive Data was last revised on 2017. Blood 05/09/2024 6:07 AM REAL ESTATE AGENCY PRINCIPAL 05/09/2024 7:25 AM REAL ESTATE AGENCY PRINCIPAL us Sarmad Duckworth MD LAB BLOOD ORDERABLES Final Result [facility] Department [place] [address] * (ABNORMAL) CBC with auto differential (05/09/2024 6:07 AM REAL ESTATE AGENCY PRINCIPAL) [facility] WBC 6.2 3.8 - 9.9 K/cumm Hgb 10.1(L) 11.9 - 15.5 g/dL [facility] Hct 32.4(L) 35.6 - 45.5 % [facility] Plt 132(L) 150 - 400 K/cumm [facility] MPV 9.3 9.1 - 12.3 fL [facility] [facility] RBC 3.70(L) 3.90 - 5.20 M/cumm [facility] MCV 87.6 81.3 - 96.4 fL [facility] MCH 27.3 27.1 - 33.3 pg [facility] MCHC 31.2(L) 32.3 - 35.7 g/dL [facility] RDW CV 14.7 11.1 - 14.9 % [facility] RDW SD 47.8 35.7 - 48.1 fL [facility] NRBC abs 0.00 0.00 - 0.01 K/cumm [facility] Blood 05/09/2024 6:07 AM REAL ESTATE AGENCY PRINCIPAL 05/09/2024 7:25 AM REAL ESTATE AGENCY PRINCIPAL Sarmad Duckworth MD LAB BLOOD ORDERABLES Final Result [facility] Department [place] [address] * (ABNORMAL) Basic metabolic panel (05/09/2024 6:07 AM REAL ESTATE AGENCY PRINCIPAL) [facility] Sodium 133(L) 135 - 145 mmol/L Potassium, pl 4.6 3.3 - 4.9 mmol/L [facility] Chloride 98 97 - 110 mmol/L [facility] CO2 28 22 - 32 mmol/L [facility] Anion gap 7 2 - 15 mmol/L [facility] BUN 14 6 - 25 mg/dL [facility] Creatinine 0.69 0.60 - 1.10 mg/dL [facility] Glucose 129 70 - 199 mg/dL [facility] Comment: Interpretive Data Fasting glucose >/= 126 mg/dl is diagnostic for diabetes. Fasting is defined as no caloric intake for at least 8 hours. Fasting glucose between 100 mg/dl to 125 mg/dl is diagnostic of prediabetes. In a patient with classic symptoms of hyperglycemia or hyperglycemic crisis, a random glucose >/= 200 mg/dl is diagnostic for diabetes. In the absence of unequivocal hyperglycemia, results should be confirmed by repeat testing. The classification and Diagnosis of Diabetes Diabetes Care 2021; 46: S19-S40. Current interpretive data was last revised 2022. Calcium 9.0 8.5 - 10.3 mg/dL [facility] Blood 05/09/2024 6:07 AM REAL ESTATE AGENCY PRINCIPAL 05/09/2024 7:25 AM REAL ESTATE AGENCY PRINCIPAL Narrative [facility] - 05/09/2024 8:14 AM REAL ESTATE AGENCY PRINCIPAL Daily us Sarmad Duckworth MD LAB BLOOD ORDERABLES Final Result [facility] Department [place] [address] * (ABNORMAL) POC Blood Gas and Chemistries, Venous - (05/08/2024 5:06 PM REAL ESTATE AGENCY PRINCIPAL) pH, Rose Mary POC 7.33 7.32 - 7.43 pCO2, rose mary POC 56(H) 40 - 50 mmHg [facility] pO2, rose mary POC 54 mmHg [facility] Na, POC 133(L) 135 - 145 mmol/L [facility] K POC 4.1 3.3 - 4.9 mmol/L [facility] Comment: Interpretive Data Not all point of care methods assess for hemolysis. Confirm with instrument and retest K+ if not consistent with clinical signs and symptoms. Current Interpretive Data was last revised on 2023. Cl, POC 101 97 - 110 mmol/L [facility] Ionized Ca, POC 4.81 4.50 - 5.10 mg/dL [facility] Glucose, POC 141 70 - 199 mg/dL [facility] Lactate, POC 1.3 0.7 - 2.0 mmol/L [facility] O2 Sat, Rose Mary POC (Phyllis) 78 % [facility] Base excess, POC 2.4 mmol/L [facility] HCO3, Rose Mary POC 30 20 - 30 mmol/L [facility] Hct, POC 39.0 36.3 - 45.3 % [facility] Total Hb, POC 12.9 11.9 - 15.5 g/dL [facility] Blood 05/08/2024 5:06 PM REAL ESTATE AGENCY PRINCIPAL 05/08/2024 5:06 PM REAL ESTATE AGENCY PRINCIPAL us Sharyn Garcia MD LAB POCT ORDERABLES - DEVICE Final Result [facility] Department [place] [address] * XR Shoulder Left 2+ View (05/08/2024 4:27 PM REAL ESTATE AGENCY PRINCIPAL) Anatomical Region Laterality Modality Upper Extremities, Shoulder Left Comp uted Radiography 05/08/2024 4:31 PM REAL ESTATE AGENCY PRINCIPAL Impressions 05/08/2024 4:31 PM REAL ESTATE AGENCY PRINCIPAL New left reverse shoulder arthroplasty in expected position. Electronically signed by: Jake Hassan M.D. Narrative 05/08/2024 4:31 PM REAL ESTATE AGENCY PRINCIPAL EXAMINATION: XR SHOULDER LEFT 2 OR MORE VIEWS HISTORY: Left shoulder arthroplasty COMPARISON: 01/08/2024 radiographs and 04/27/2024 CT FINDINGS: There is a new left reverse shoulder arthroplasty in expected position. There is intra-articular and periarticular soft tissue gas. No acute fracture. Unchanged remodeling of the acromion process and fragmentation of its undersurface with moderate acromioclavicular joint osteophytes. Incompletely evaluated mitral annuloplasty, median sternotomy wires, and mediastinal clips. Procedure Note Jake Hassan MD - 05/08/2024 EXAMINATION: XR SHOULDER LEFT 2 OR MORE VIEWS HISTORY: Left shoulder arthroplasty COMPARISON: 01/08/2024 radiographs and 04/27/2024 CT FINDINGS: There is a new left reverse shoulder arthroplasty in expected position. There is intra-articular and periarticular soft tissue gas. No acute fracture. Unchanged remodeling of the acromion process and fragmentation of its undersurface with moderate acromioclavicular joint osteophytes. Incompletely evaluated mitral annuloplasty, median sternotomy wires, and mediastinal clips. IMPRESSION: New left reverse shoulder arthroplasty in expected position. Electronically signed by: Jake Hassan M.D. us Sarmad Duckworth MD IMG XR PROCEDURES Final Re sult * [place] AN ELECTIVE ENDOTRACHEAL AIRWAY, [place] AN PROCEDURE PLACEHOLDER (05/08/2024 2:22 PM REAL ESTATE AGENCY PRINCIPAL) Narrative Tab Davis MD - 05/08/2024 2:22 PM REAL ESTATE AGENCY PRINCIPAL Tab Davis MD 05/08/2024 3:36 PM Airway Patient location: OR Urgency: elective Indications for airway management: anesthesia and airway protection Difficult airway: no Staff: Supervising provider: Adebayo Shea MD Placed by: Resident: Tab Davis MD Emergent airway documentation: Risks and benefits discussed: yes Consent obtained: yes Consent given by: patient Airway prep: Preoxygenated: yes Patient position: sniffing Mask difficulty assessment: 1 - vent by mask Spontaneous ventilation during airway: absent Sedation level during airway: GA Final airway details: Final airway type: endotracheal airway Tube type: ETT ETT size: 7.0 mm Cuffed: yes Technique used for successful ETT placement: video laryngoscopy Insertion site: oral Blade type: Brody Video blade type: Alaniz Blade size: 3 Cormack-Lehane (video): grade I - full view of glottis Cuff inflated with: air ETT to teeth: 22 cm Placement verified by: auscultation and CO2 detection Airway secured with: silk tape Number of attempts: 1 us Adebayo Shea MD ANESTHESIA ORDERABLES Edited Result - Final * [place] AN PROCEDURE PLACEHOLDER (05/08/2024 1:30 PM REAL ESTATE AGENCY PRINCIPAL) Narrative Kaushik Marinelli MD - 05/08/2024 1:30 PM REAL ESTATE AGENCY PRINCIPAL Kaushik Marinelli MD 05/08/2024 2:28 PM Peripheral Block Patient location during procedure: pre-op holding Reason for block: post-op pain management per surgeon request Ultrasound image in chart or stored: yes Block type: single shot Laterality: left Block type: PECS II Staff: Supervising provider: Kaushik Marinelli MD Placed by: Resident: Mini Deleon Oca MD Procedure prep: Preprocedure checklist: patient identified, procedure contraindications assessed, site marked, procedure consent, surgical consent, IV checked, risks, benefits and alternatives discussed, monitors and equipment checked and timeout performed Patient position: supine Procedure performed while patient: sedate with meaningful contact Monitoring: ECG, oximetry and blood pressure Supplemental O2: nasal cannula Prep solution: chlorhexidine/alcohol PPE: provider hat/mask, sterile gloves and sterile probe cover and gel Peripheral nerve block: Technique: ultrasound guided Needle gauge: 22 G Needle length: 50 mm Injection assessment: injection made incrementally with constant monitoring, local visualized surrounding nerve on ultrasound, negative aspiration for heme, no paresthesias noted, normal resistance to injection and see flowsheet for medication details Assessment: Block success: full evaluation pending Events: patient tolerated procedure well with no complications us Mini Crowe MD ANESTHESIA ORD ERABLES Final Result * [place] AN PROCEDURE PLACEHOLDER (05/08/2024 1:18 PM REAL ESTATE AGENCY PRINCIPAL) Narrative Kaushik Marinelli MD - 05/08/2024 1:18 PM REAL ESTATE AGENCY PRINCIPAL Mini Deleon Oca, MD 05/08/2024 1:30 PM Peripheral Block Patient location during procedure: pre-op holding Reason for block: post-op pain management per surgeon request Ultrasound image in chart or stored: yes Block type: single shot Laterality: left Other block type: Brachial plexus, upper trunk Staff: Supervising provider: Kaushik Marinelli MD Placed by: Resident: Mini Deleon Oca, MD Procedure prep: Preprocedure checklist: patient identified, procedure contraindications assessed, site marked, procedure consent, surgical consent, IV checked, risks, benefits and alternatives discussed, monitors and equipment checked and timeout performed Patient position: supine and head of bed elevated Procedure performed while patient: sedate with meaningful contact Monitoring: ECG, oximetry and blood pressure Supplemental O2: nasal cannula Prep solution: chlorhexidine/alcohol PPE: provider hat/mask, sterile gloves and sterile probe cover and gel Peripheral nerve block: Technique: ultrasound guided Needle type: insulated, short-bevel and echogenic Needle gauge: 22 G Needle length: 50 mm Injection assessment: injection made incrementally with constant monitoring, local visualized surrounding nerve on ultrasound, negative aspiration for heme, no paresthesias noted, normal resistance to injection and see flowsheet for medication details Assessment: Block success: full evaluation pending Events: patient tolerated procedure well with no complications us Mini Crowe MD ANESTHESIA ORD ERABLES Final Result * CT Shoulder Left WO Contrast (04/27/2024 5:12 PM REAL ESTATE AGENCY PRINCIPAL) Anatomical Region Laterality Modality Upper Extremities Left Computed Tomog bhaskar 04/27/2024 5:39 PM REAL ESTATE AGENCY PRINCIPAL Impressions 04/27/2024 5:39 PM REAL ESTATE AGENCY PRINCIPAL 1. Preoperative planning CT demonstrates chronic left rotator cuff tear with severe rotator cuff tear arthropathy, superior escape of the humeral head, acromial fragmentation, and mildly deficient glenoid bone stock. Electronically signed by: Pio Mendoza M.D. Narrative 04/27/2024 5:39 PM REAL ESTATE AGENCY PRINCIPAL EXAMINATION: CT SHOULDER LEFT WO CONTRAST HISTORY: Left rotator cuff tear arthropathy FINDINGS: CT examination of the left shoulder was performed without contrast according to the [employer] Blueprint protocol and multiplanar reformatted images were created. Left shoulder radiographs from 01/08/2024 was reviewed. There is unchanged superior escape of the humeral head with subacromial abutment and severe rotator cuff tear arthropathy. There is erosion of the acromial undersurface, superior renal head, glenoid, and the coracoid tip. There is calcific debris in the joint capsule and bursa. Glenoid bone stock at the coracoid base is slightly deficient, with glenoid vault depth of 19 mm. Glenoid version at the equator is 5 degrees anteversion. 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 There is fragmentation of the acromial undersurface. There is a large glenohumeral joint effusion with debris. There is severe muscle atrophy throughout the rotator cough. There has been median sternotomy. There are extensive aortic atherosclerotic calcifications. There is subsegmental atelectasis in the visualized left lung with areas of mosaic attenuation due to air trapping and a calcified left lower lobe granuloma. There is moderate degenerative disc disease throughout the visualized cervicothoracic spine. Procedure Note Pio Mendoza MD - 04/27/2024 EXAMINATION: CT SHOULDER LEFT WO CONTRAST HISTORY: Left rotator cuff tear arthropathy FINDINGS: CT examination of the left shoulder was performed without contrast [facility] and multiplanar reformatted images were created. Left shoulder radiographs from 01/08/2024 was reviewed. There is unchanged superior escape of the humeral head with subacromial abutment and severe rotator cuff tear arthropathy. There is erosion of the acromial undersurface, superior renal head, glenoid, and the coracoid tip. There is calcific debris in the joint capsule and bursa. Glenoid bone stock at the coracoid base is slightly deficient, with glenoid vault depth of 19 mm. Glenoid version at the equator is 5 degrees anteversion. 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 There is fragmentation of the acromial undersurface. There is a large glenohumeral joint effusion with debris. There is severe muscle atrophy throughout the rotator cough. There has been median sternotomy. There are extensive aortic atherosclerotic calcifications. There is subsegmental atelectasis in the visualized left lung with areas of mosaic attenuation due to air trapping and a calcified left lower lobe granuloma. There is moderate degenerative disc disease throughout the visualized cervicothoracic spine. IMPRESSION: 1. Preoperative planning CT demonstrates chronic left rotator cuff tear with severe rotator cuff tear arthropathy, superior escape of the humeral head, acromial fragmentation, and mildly deficient glenoid bone stock. Electronically signed by: Pio Mendoza M.D. Sharyn Garcia MD [facility] PROCEDURES Fin al Result * TYPE AND SCREEN 14 DAY (04/27/2024 4:51 PM REAL ESTATE AGENCY PRINCIPAL) ABO Rh O Positive [place], indirect Negative [facility] Comment:Patient has previous antibody history Blood 04/27/2024 4:51 PM REAL ESTATE AGENCY PRINCIPAL 04/27/2024 5:42 PM REAL ESTATE AGENCY PRINCIPAL Narrative [facility] - 04/27/2024 6:48 PM REAL ESTATE AGENCY PRINCIPAL Is this test being ordered in advance for a procedure?->Yes Expected date of procedure:->05/08/24 Has the patient been transfused in the past 3 months?->No Has the patient been in the past 3 months?->No us Emili Dasilva PHARMACOLOGIST LAB BLOOD BANK TEST O RDERABLES Final Result Performing Organization Address [facility]/ZIP Co de Phone Number [facility] [place] [address] * eGFR (04/27/2024 4:51 PM REAL ESTATE AGENCY PRINCIPAL) eGFR >90 >=60 mL/min/1. 73 m2 Comment: Interpretive Data Reference Interval Normal >/= 90 mL/min/1.73m2 Mildly decreased* 60 - 89 mL/min/1.73m2 Mildly to moderately decreased 45 - 59 mL/min/1.73m2 Moderately to severely decreased 30 - 44 mL/min/1.73m2 Severely decreased 15 - 29 mL/min/1.73m2 Kidney Failure < 15 mL/min/1.73m2 *Relative to young adult level Estimated glomerular filtration rate is determined by the 2020 CKD-EPI equation recommended by the National Kidney Foundation (A Unifying Approach to GFR Estimation: Recommendations of the NKF-ASK Task Force on Reassessing the Inclusion of Race in Diagnosing Kidney Disease, JASN 2020). The CKD-EPI equation should not be used for patients with unstable renal function and has not been validated in children and those over 70. Current interpretive data was last reviewed 2021. Blood 04/27/2024 4:51 PM REAL ESTATE AGENCY PRINCIPAL 04/27/2024 5:30 PM REAL ESTATE AGENCY PRINCIPAL Sharyn Garcia MD LAB BLOOD ORDERABLES Final Result Performing Organization Address [facility]/ZIP Co de Phone Number [facility] [place] [address] * Differential, auto (04/27/2024 4:51 PM REAL ESTATE AGENCY PRINCIPAL) Neutrophil abs 4.7 1.5 - 6.5 K/cumm Imm gran abs 0.1 0.0 - 0.1 K/cumm [facility] Lymphocyte abs 1.3 0.8 - 3.3 K/cumm [facility] Monocyte abs 0.5 0.2 - 0.8 K/cumm [facility] Eosinophil abs 0.2 0.0 - 0.5 K/cumm [facility] Basophil abs 0.0 0.0 - 0.1 K/cumm [facility] Neutrophil pct 70.0 % [facility] Comment: Interpretive Data Percent cell count reference ranges are not reported, since discordance with absolute values may lead to misinterpretation of CBC data. Current Interpretive Data was last revised on 2017. Imm gran pct 0.7 % [facility] Comment: Interpretive Data Percent cell count reference ranges are not reported, since discordance with absolute values may lead to misinterpretation of CBC data. Current Interpretive Data was last revised on 2017. Lymphocyte pct 18.8 % [facility] Comment: Interpretive Data Percent cell count reference ranges are not reported, since discordance with absolute values may lead to misinterpretation of CBC data. Current Interpretive Data was last revised on 2017. Monocyte pct 7.8 % [facility] Comment: Interpretive Data Percent cell count reference ranges are not reported, since discordance with absolute values may lead to misinterpretation of CBC data. Current Interpretive Data was last revised on 2017. Eosinophil pct 2.4 % [facility] Comment: Interpretive Data Percent cell count reference ranges are not reported, since discordance with absolute values may lead to misinterpretation of CBC data. Current Interpretive Data was last revised on 2017. Basophil pct 0.3 % [facility] Comment: Interpretive Data Percent cell count reference ranges are not reported, since discordance with absolute values may lead to misinterpretation of CBC data. Current Interpretive Data was last revised on 2017. Blood 04/27/2024 4:51 PM REAL ESTATE AGENCY PRINCIPAL 04/27/2024 5:29 PM REAL ESTATE AGENCY PRINCIPAL us Emili Dasilva NP LAB BLOOD ORDERABLES Final Result [facility] Department [place] [address] * CBC with auto differential (04/27/2024 4:51 PM REAL ESTATE AGENCY PRINCIPAL) WBC 6.8 3.8 - 9.9 K/cumm Hgb 12.2 11.9 - 15.5 g/dL [facility] Hct 37.8 35.6 - 45.5 % [facility] Plt 166 150 - 400 K/cumm [facility] MPV 9.4 9.1 - 12.3 fL [facility] RBC 4.49 3.90 - 5.20 M/cumm [facility] MCV 84.2 81.3 - 96.4 fL [facility] MCH 27.2 27.1 - 33.3 pg [facility] MCHC 32.3 32.3 - 35.7 g/dL [facility] RDW CV 14.7 11.1 - 14.9 % [facility] RDW SD 45.1 35.7 - 48.1 fL [facility] NRBC abs 0.00 0.00 - 0.01 K/cumm [facility] Blood 04/27/2024 4:51 PM REAL ESTATE AGENCY PRINCIPAL 04/27/2024 5:29 PM REAL ESTATE AGENCY PRINCIPAL Emili Dasilva PHARMACOLOGIST LAB BLOOD ORDERABLES Final Result [facility] [place] [address] * Vitamin D 25 hydroxy (04/27/2024 4:51 PM REAL ESTATE AGENCY PRINCIPAL) [facility] Vitamin D 25-OH 37 30 - 80 ng/mL Blood 04/27/2024 4:51 PM REAL ESTATE AGENCY PRINCIPAL 04/27/2024 5:30 PM REAL ESTATE AGENCY PRINCIPAL Sharyn Garcia MD LAB BLOOD ORDERABLES Final Result [facility] [place] [address] * (ABNORMAL) Comprehensive metabolic panel (04/27/2024 4:51 PM REAL ESTATE AGENCY PRINCIPAL) [facility] Sodium 131(L) 135 - 145 mmol/L Potassium, pl 4.3 3.3 - 4.9 mmol/L [facility] Chloride 95(L) 97 - 110 mmol/L [facility] CO2 29 22 - 32 mmol/L [facility] Anion gap 7 2 - 15 mmol/L [facility] BUN 10 6 - 25 mg/dL [facility] Creatinine 0.65 0.60 - 1.10 mg/dL [facility] Glucose 88 70 - 199 mg/dL [facility] Comment: Interpretive Data Fasting glucose >/= 126 mg/dl is diagnostic for diabetes. Fasting is defined as no caloric intake for at least 8 hours. Fasting glucose between 100 mg/dl to 125 mg/dl is diagnostic of prediabetes. In a patient with classic symptoms of hyperglycemia or hyperglycemic crisis, a random glucose >/= 200 mg/dl is diagnostic for diabetes. In the absence of unequivocal hyperglycemia, results should be confirmed by repeat testing. The classification and Diagnosis of Diabetes Diabetes Care 202; 46: S19-S40. Current interpretive data was last revised 2022. Calcium 9.5 8.5 - 10.3 mg/dL [facility] Bilirubin, total 0.6 0.1 - 1.2 mg/dL [facility] Protein, pl 7.1 6.5 - 8.5 g/dL [facility] Albumin 4.3 3.5 - 5.0 g/dL [facility] Alk phos 121 40 - 130 Units/L [facility] ALT 10 7 - 45 Units/L [facility] AST 21 10 - 45 Units/L [facility] Blood 04/27/2024 4:51 PM REAL ESTATE AGENCY PRINCIPAL 04/27/2024 5:30 PM REAL ESTATE AGENCY PRINCIPAL us Sharyn Garcia MD LAB BLOOD ORDERABLES Final Result [facility] Department [place] [address] * ECG 12 lead (04/27/2024 3:50 PM REAL ESTATE AGENCY PRINCIPAL) Pathologist [facility] Ventricular Rate EKG/Min 62 BPM [facility] Atrial Rate 62 BPM [facility] [place]-Interval (MSEC) 216 ms [facility] QRS-Interval (MSEC) 92 ms [facility] QT-Interval (MSEC) 456 ms [facility] QTc 462 ms [facility] P [place] 63 degrees [facility] R [place] 28 degrees [facility] T [place] 53 degrees [facility] Diagnosis Sinus rhythm with 1st degree A-V block Incomplete right bundle branch block Poor precordial R wave progression consistent with faulty lead placement, copd, etc. ; consider anterior infarct, lead placement, or normal variant Abnormal ECG When compared with ECG of 30-DEC-2008 09:31, [place] interval has increased Confirmed by MARVA CHAVEZ M.D ([id number]) on 04/28/2024 10:01:40 AM [facility] 04/27/2024 3:50 PM REAL ESTATE AGENCY PRINCIPAL 04/28/2024 10:01 AM REAL ESTATE AGENCY PRINCIPAL Emili Dasilva NP ECG ORDERABLES Final Result [facility] * POCT lipid panel (09/13/2023 2:22 PM CDT) Cholesterol, POC 137 mg/dL HDL, POC 51 mg/dL Triglycerides, POC 75 mg/dL LDL Cholesterol POC 71 mg/dL Chol/HDL Ratio, POC 1.4 Non-HDL Cholesterol, POC 86 mg/dL Cholesterol Total, POC 137 mg/dL Capillary blood 09/13/2023 2 :22 PM CDT Nacho Pina MD POINT OF CARE TEST ORDERA BLES Final Result * Hemoglobin A1c (11/11/2019 6:17 AM CDT) Hgb A1C 5.1 4.0 - 5.6 % [facility] Estimated Average Glucose 100 mg/dL [facility] Comment: The ADA recommends reporting an estimated Average Glucose (eAG) with all Hemoglobin A1c results using the equation derived from a study of 507 normal and diabetic adults. Minority populations were underrepresented and children were not included. (Diabetes Care 31:1581-3559, 2008). The eAG is not equivalent to a fasting glucose. Blood specimen (specimen) 11/11/2019 6:17 AM CDT 11/11/2019 6:34 AM CDT us Ovidio Bryant MD LAB BLOOD ORDERABLES Fin al Result [facility] [address] Department [place] [address] from Last 3 Months or Most Recently Relevant to Health Maintenance Insurance MEDICARE [employer] [facility] MCR SUPPLEMENT ROGERSDARYL [id number] MEDICARE [facility] SUPPLEMENT DARYL MCCLOUD [id number] [facility] MEDICARE [facility] Address: [address] [address] [place] [address] [facility] MEDICARE [facility] MCR SUPPLEMENT Advance Directives For more information, please contact: [phone] * Full Code (Latest Code Status on File) Date Activated Date Inactivated Comments 05/08/2024 7:18 PM 05/09/2024 3:37 PM * Full Code Date Activated Date Inactivated Comments 11/11/2019 1:12 PM 11/17/2019 7:59 PM Care Teams Classified Ad Taker Relationship Specialty Start Date End Date Shannan Dennis MD PCP - General 06/29/16 Nacho Pina MD [address] [facility] [address] [place] [address] Speech Therapy Director Cardiology 04/07/24 Ovidio Villagran MD [address] [place] [address] Premium Card Cancellation Clerk Critical Care Med 04/07/24
--- OUTSIDE RECORDS SUMMARY | 2024-07-09 14:53 | XMS_ITS | Clinical Summary ---
Author Organization [facility] [address] Address [address] [place] [address] Care Team Providers Care Assistant Maintenance Manager Name Role Phone Shannan Dennis MD Primary Care Provider [phone] Nacho Pina MD Unavailable Ovidio Villagran MD Unavailable [phone] Allergies Active Allergy Reactions Criticality Noted Date [...] ACIDOPHILUS ORAL Take 1 capsule by mouth recyclable products sorter before breakfast 11/18/19 20 Active metoprolol XL (TOPROL-XL) 50 mg extended release tabletIndication s:Atrial Arrhythmia Take 1 tablet (50 mg total) by mouth recyclable products sorter before breakfast 11/18/19 20 Active ergocalciferol (VITAMIN [...] 1 tablet (10 mg total) by mouth recyclable products sorter before breakfast 04/14/19 25 Active magnesium glycinate 100 mg tabletIndication s:Supplement Take 1,000 mg by mouth nightly Active cetirizine-pseud oephedrine ER (ZyrTEC-D) 5-120 mg per 12 hr tabletIndication s:Nasal Congestion Take 1 tablet by mouth 2 (two) times a day as needed for allergies (Congestion) Active turmeric root extract 500 mg capsuleIndicatio ns:Supplement Take 1 tablet/chew tab by mouth recyclable products sorter before breakfast Active UNABLE TO FINDIndications: Supplement Take by mouth recyclable products sorter before breakfast Med Name: Beet Active collagen, hydrolysate, bovine, (collagen, hydr, bovine,, bulk,) 100 % powderIndication s:Supplement Take 1 packet by mouth recyclable products sorter before breakfast Active celecoxib (CeleBREX) 100 mg [...] 1 tablet (40 mg total) by mouth recyclable products sorter before breakfast 90 tablet 1 06/18/19 25 Active rivaroxaban (Xarelto) 20 mg tabletIndication s:atrial fibrillation Take 1 tablet (20 mg total) by mouth recyclable products sorter before breakfast 90 tablet 1 06/18/19 25 [...] (11/03/2019): Added automatically from request for surgery [id number] Encounters Date Type Department Care Team Description 07/08/2024 Telephone [facility] [address] [facility] [address]th [place] [address] [place] [address] Sharyn Garcia MD 06/22/2024 3:00 PM CDT Office Visit [facility] [address] [facility] 12th [place] [address] [place] [address] Sharyn Garcia MD Status post reverse arthroplasty of left shoulder (Primary Dx) 06/22/2024 2:45 PM CDT - 06/22/2024 11:59 PM CDT Hospital Encounter [facility] ([facility]) [address] [place] [id number] Status post reverse arthroplasty of left shoulder Discharge Disposition: Discharge to home or self care 05/25/2024 11:15 AM ELECTRONIC SYSTEMS SECURITY ASSESSMENT Office Visit [facility] [address] [place] [address] 12th [place] [address] [place] [address] Sharyn Garcia MD Status post reverse arthroplasty of left shoulder (Primary Dx); Status post orthopedic surgery, follow-up exam 05/25/2024 11:00 AM ELECTRONIC SYSTEMS SECURITY ASSESSMENT - 05/25/2024 11:59 PM ELECTRONIC SYSTEMS SECURITY ASSESSMENT Hospital Encounter [facility] ([facility]) [address] [place] [id number] Status post orthopedic surgery, follow-up exam Discharge Disposition: Discharge to home or self care 05/08/2024 2:20 PM ELECTRONIC SYSTEMS SECURITY ASSESSMENT - 05/08/2024 5:30 PM ELECTRONIC SYSTEMS SECURITY ASSESSMENT Surgery [facility] Operating Room [address] [place] [address] Sharyn Garcia MD Left Reverse Shoulder Arthroplasty 05/08/2024 1:52 PM ELECTRONIC SYSTEMS SECURITY ASSESSMENT Anesthesia Event [facility] Operating Room [address] [place] [address] Adebayo Shea MD Mallette, Allison Anne, NP 05/08/2024 10:09 AM ELECTRONIC SYSTEMS SECURITY ASSESSMENT - 05/09/2024 11:37 AM ELECTRONIC SYSTEMS SECURITY ASSESSMENT Hospital Encounter [address] [address] Sharyn Garcia MD Left rotator cuff tear arthropathy (Primary Dx) Discharge Disposition: Discharge to home or self care 05/06/2024 Telephone [facility] [address] [facility] [address]th [place] [address] [place] [address] hSaryn Garcia MD 04/30/2024 1:45 PM ELECTRONIC SYSTEMS SECURITY ASSESSMENT Office Visit [facility] [address] [place] [id number] Nacho Pina MD Pre-op evaluation (Primary Dx); ANAM (obstructive sleep apnea); Cardiomyopathy, nonischemic (HCC); PAF (paroxysmal atrial fibrillation) (HCC); Status post mitral valve repair; Ventricular premature beats 04/27/2024 4:55 PM ELECTRONIC SYSTEMS SECURITY ASSESSMENT - 04/27/2024 11:59 PM ELECTRONIC SYSTEMS SECURITY ASSESSMENT Hospital Encounter [facility] [address] [place] [phone] Sharyn Garcia MD Rotator cuff arthropathy of left shoulder; Left shoulder pain, unspecified chronicity Discharge Disposition: Discharge to home or self care 04/27/2024 3:00 PM ELECTRONIC SYSTEMS SECURITY ASSESSMENT Pre-Admission Testing [facility] Preoperative Assessment and [facility] ([facility]) [address] [place] [phone] Preoperative testing (Primary Dx); Left rotator cuff tear arthropathy; Vitamin D deficiency 04/27/2024 2:00 PM ELECTRONIC SYSTEMS SECURITY ASSESSMENT Office Visit [facility] 12th [place] [address] [place] [address] Sharyn Garcia MD Rotator cuff arthropathy of left shoulder (Primary Dx) from Last 3 Months Surgical History Surgery Date Site/Laterality Comments RHINOPLASTY REDUCTION MAMMOPLASTY 04/01/2005 - 03/31/2006 CHOLECYSTECTOMY 04/01/1983 - 03/31/1984 NASAL SEPTUM SURGERY 04/01/1986 - 03/31/1987 ROTATOR CUFF REPAIR 2003,2006 Right LAPAROSCOPIC LUIS ENRIQUE FUNDOPLICATION 04/01/2013 - 03/31/2014 With wedge fundectomy for esophageal lengthening and biologic Surgisis mesh REVERSE TOTAL SHOULDER ARTHROPLASTY 04/01/2008 - 03/31/2009 Right CARDIOVERSION 04/01/2018 - 05/01/2018 MITRAL VALVE REPLACEMENT Medical History Medical History Date Comments Gastroesophageal reflux disease Depression Osteoarthritis Osteoporosis Mitral valve regurgitation Pituitary adenoma (HCC) Hyperlipidemia Hypertension Atrial fibrillation (HCC) SOB (shortness of breath) Sleep apnea PONV (postoperative nausea and vomiting) Family History Medical History Relation Name Comments Pancreatic cancer Brother 2 Cancer -pa ncreatic; Cause of : Cancer -pancreatic Asthma Father Asthma; Hypertension Father Hypertension; Other Father Unknown; Cause of : Unknown Pancreatic cancer Father Cancer -pa ncreatic; Cause of : Cancer -pancreatic Diabetes type II Mother Diabetes -T ype II; Heart failure Mother Chf; Cause of : Chf/Congestive Heart Failure; Cause of : Congestive Heart Failure Other Other No family histo ry of pituitary and thyroid; Diabetes type II Sister Diabetes -T ype II; Anesthesia problems Neg Hx Relation Name Status Comments Brother 1 (Age 56) Brother 2 Father (Age 65) Mother (Age 63) Other Sister Social History Tobacco Use Types Packs/Day Years [...] on file Legal Sex Female 10:24 AM ELECTRONIC SYSTEMS SECURITY ASSESSMENT Gender Identity Not on file Sexual Orientation Not on file Obstetrics History Last Filed Vital Signs Vital Sign Reading Time Taken Comments Blood Pressure 127/67 05/09/2024 8:12 AM ELECTRONIC SYSTEMS SECURITY ASSESSMENT Pulse 65 05/09/2024 8:12 AM ELECTRONIC SYSTEMS SECURITY ASSESSMENT Temperature 36.4 C (97.5 F) 05/09/2024 4:39 AM ELECTRONIC SYSTEMS SECURITY ASSESSMENT Respiratory Rate 18 05/09/2024 4:39 AM ELECTRONIC SYSTEMS SECURITY ASSESSMENT Oxygen Saturation 96% 05/09/2024 8:12 AM ELECTRONIC SYSTEMS SECURITY ASSESSMENT Inhaled Oxygen Concentration - - Weight 70.3 kg (155 lb) 05/08/2024 11:19 AM ELECTRONIC SYSTEMS SECURITY ASSESSMENT Height 157.5 cm (5' 2 ) 05/08/2024 11:19 AM ELECTRONIC SYSTEMS SECURITY ASSESSMENT Body Mass Index 28.35 05/08/2024 11:19 AM ELECTRONIC SYSTEMS SECURITY ASSESSMENT Plan of Treatment Health Maintenance Due Date Last Done Comments Albumin Creatinine Ratio, Urine 1950 Colon Cancer Screening-Colonoscopy 1950 Depression Screening 1950 Hepatitis C Screening 1950 Osteoporosis Screening-Bone Density Scan 1950 Dilated Eye Exam 1950 Foot Exam 1950 DTaP/Tdap/Td Vaccine (1 - Tdap) 12/25/1962 Hepatitis B Screening 12/25/1969 Pneumococcal vaccine 65+ (1 of 2 - PCV) 12/25/1970 Zoster Vaccine (2 of 3) 05/07/2013 03/12/2013 Breast Cancer Screening-Mammogram 07/07/2014 07/07/2013, 01/18/2012, 12/20/2010 Well Visit 65+ 12/25/2016 Hemoglobin A1C 05/13/2020 11/11/2019 Covid-19 Vaccine (3 - 2023-2 5 season) 2023 06/16/2020, 05/27/2020 Lipid Panel 09/12/2024 09/13/2023, 03/02, 06/15/2022, Additional history exists Influenza Vaccine (Season Ended) 2024 12/14/2016, 01/18/2016, 12/31/2015 Fall Risk Assessment 05/09/2025 05/09/2024 eGFR 05/09/2025 05/09/2024, 04/02, 11/17/2019, Additional history exists Goals Goal Patient Goal Type Associated Problems Recent Progress Patient-Stated? Author CCM Chronic Pain Care Plan Chronic Care Management Improving( 1:46 PM CDT) Lacy Pugh, RN Note: Problem: Chronic Pain Goals: 1. Minimize further functional decline 2. Maximize quality of life 3. Control pain Strategies: - Activity/exercise program recommendation - Conservative stepwise pain medicine strategy with multi-disciplinary approach - Recommend healthy lifestyle strategies and compensatory methods as needed Medical Devices Implanted Type Area Acoustics Teacher Device Identifier Shelf Expiration Date Model / Serial / Lot Posmetrics [id number] [facility] Physio Ii 36mm Joy Mitral Ring Annuloplasty - [id number] - [id number] Implanted:Qty: 1 on 11/11/2019 by Ovidio Bryant MD at [facility] Other - see comments N/A: Mitral Valve [employer] 07/12/2024 [id number] / [id number] / Description:Annuloplasty Rin g [employer] Aequalis Perform Od25 Mm Augment 35 D Half Wedge Baseplate Glenoid [id number] - [id number] Implanted:Qty: 1 on 05/08/2024 by Sharyn Garcia MD at [facility] Left: Shoulder [employer] [id number] / / [employer] Aequalis Perform Reversed Od6.5 Mm L30 Mm Central Glenoid Screw Baseplate Nonsterile [id number] - [id number] Implanted:Qty: 1 on 05/08/2024 by Sharyn Garcia MD at [facility] Left: Shoulder [employer] [id number] / / [employer] Aequalis Perform Reversed 5mm 18mm Peripheral Glenoid Screw [id number] - [id number] Implanted:Qty: 2 on 05/08/2024 by Sharyn Garcia MD at [facility] Left: Shoulder [employer] [id number] / / [employer] Screw Glenoid Locking Reverse Aequalis Perform 5.0x22mm Titanium [id number] - [id number] Implanted:Qty: 1 on 05/08/2024 by Sharyn Garcia MD at [facility] Left: Shoulder [employer] [id number] / / [employer] Glenosphere Cannulated Reversed Standard Vevay Chromium Tornier Perform 36mm [id number] - [id number] - [id number] Implanted:Qty: 1 on 05/08/2024 by Sharyn Garcia MD at [facility] Left: Shoulder [employer] [id number] 06/04/2028 [id number] / [id number] / [employer] Stem Humeral Shoulder Reverse Aequalis Perform [id number] - [id number] Implanted:Qty: 1 on 05/08/2024 by Sharyn Garcia MD at [facility] Left: Shoulder [employer] [id number] / / [employer] Insert Humeral 10 Degree Reverse Size 1/2 +0 Perform 36mm Combination [id number] - [id number] Implanted:Qty: 1 on 05/08/2024 by Sharyn Garcia MD at [facility] Left: Shoulder [employer] [id number] / / Procedures Procedure Name Priority Date/Time Associated Diagnosis Comments XR SHOULDER LEFT 2 OR MORE VIEWS Schedule Routine, Read Routine (OP Routine) 06/22/2024 3:10 PM CDT Status post reverse arthroplasty of left shoulder XR SHOULDER LEFT 2 OR MORE VIEWS Schedule Routine, Read Routine (OP Routine) 05/25/2024 11:13 AM ELECTRONIC SYSTEMS SECURITY ASSESSMENT Status post orthopedic surgery, follow-up exam EGFR Timed 05/09/2024 6:07 AM ELECTRONIC SYSTEMS SECURITY ASSESSMENT DIFFERENTIAL AUTO Routine 05/09/2024 6:0 7 AM ELECTRONIC SYSTEMS SECURITY ASSESSMENT CBC WITH AUTO DIFFERENTIAL Routine 05/09/2024 6:07 AM ELECTRONIC SYSTEMS SECURITY ASSESSMENT BASIC METABOLIC PANEL Timed 05/09/2024 6:07 AM ELECTRONIC SYSTEMS SECURITY ASSESSMENT POC BLOOD GAS AND CHEMISTRIES, VENOUS Routine 05/08/2024 5:06 PM ELECTRONIC SYSTEMS SECURITY ASSESSMENT XR SHOULDER LEFT 2 OR MORE VIEWS IP Routine 05/08/2024 4:27 PM ELECTRONIC SYSTEMS SECURITY ASSESSMENT LA AN PROCEDURE PLACEHOLDER Routine 05/08/2024 2:22 PM ELECTRONIC SYSTEMS SECURITY ASSESSMENT LA AN ELECTIVE ENDOTRACHEAL AIRWAY Routine 05/08/2024 2:22 PM ELECTRONIC SYSTEMS SECURITY ASSESSMENT ARTHROPLASTY SHOULDER - REVERSE TOTAL 05/08/2024 1:52 PM ELECTRONIC SYSTEMS SECURITY ASSESSMENT Left rotator cuff tear arthropathy Special Needs May Perform, Beach Chair with Trimano, Sling Shot with Pillow, Ice Machine LA AN PROCEDURE PLACEHOLDER Routine 05/08/2024 1:30 PM ELECTRONIC SYSTEMS SECURITY ASSESSMENT LA AN PROCEDURE PLACEHOLDER Routine 05/08/2024 1:18 PM ELECTRONIC SYSTEMS SECURITY ASSESSMENT CT SHOULDER LEFT WO CONTRAST Schedule Routine, Read Routine (OP Routine) 04/27/2024 5:12 PM ELECTRONIC SYSTEMS SECURITY ASSESSMENT Rotator cuff arthropathy of left shoulder Left shoulder pain, unspecified chronicity EGFR Routine 04/27/2024 4:51 PM ELECTRONIC SYSTEMS SECURITY ASSESSMENT Left rotator cuff tear arthropathy DIFFERENTIAL AUTO Routine 04/27/2024 4:5 1 PM ELECTRONIC SYSTEMS SECURITY ASSESSMENT Preoperative testing TYPE AND SCREEN 14 DAY Routine 04/27/2024 4:51 PM ELECTRONIC SYSTEMS SECURITY ASSESSMENT Preoperative testing CBC WITH AUTO DIFFERENTIAL Routine 04/27/2024 4:51 PM ELECTRONIC SYSTEMS SECURITY ASSESSMENT Preoperative testing VITAMIN D 25 HYDROXY Routine 04/27/2024 4:51 PM ELECTRONIC SYSTEMS SECURITY ASSESSMENT Left rotator cuff tear arthropathy Vitamin D deficiency COMPREHENSIVE METABOLIC PANEL Routine 04/27/2024 4:51 PM ELECTRONIC SYSTEMS SECURITY ASSESSMENT Left rotator cuff tear arthropathy ECG 12-LEAD Routine 04/27/2024 3:50 PM ELECTRONIC SYSTEMS SECURITY ASSESSMENT Preoperative testing POCT LIPID PANEL Routine 09/13/2023 [...] Impressions 06/22/2024 4:07 PM CDT Unchanged reverse ezmf-ahy-wasnxr total left shoulder arthroplasty in near anatomic position. Electronically signed by: MD Lizzy Peacock 06/22/2024 4:07 PM CDT EXAMINATION: XR SHOULDER LEFT 2 OR MORE VIEWS HISTORY: Rotator cuff tendon tear, left shoulder osteoarthritis FINDINGS: Comparison dated 05/25/2024. Reverse nxht-vyc-yneroo total left shoulder arthroplasty in near anatomic [...] shoulder osteoarthritis FINDINGS: Comparison dated 05/25/2024. Reverse yzyy-wqy-miwhxk total left shoulder arthroplasty in near anatomic position. No periprosthetic fracture. Heterotopic ossification is noted inferior to the glenosphere. The appearance of the acromion is unchanged. No definite acromial fracture is seen. 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 Median sternotomy wires remain in place. Vascular calcifications. IMPRESSION: Unchanged reverse ezxx-qqa-wcewle total left shoulder arthroplasty in near anatomic position. Electronically signed by: Danielito Solomon MD Sharyn Garcia MD IMG XR PROCEDURES Fin al Result * XR Shoulder Left 2 or More Views (05/25/2024 11:13 AM ELECTRONIC SYSTEMS SECURITY ASSESSMENT) Anatomical Region Laterality Modality Upper Extremities, Shoulder Left Comp uted Radiography 05/25/2024 11:3 4 AM ELECTRONIC SYSTEMS SECURITY ASSESSMENT Impressions 05/25/2024 11:34 AM ELECTRONIC SYSTEMS SECURITY ASSESSMENT Unchanged reverse total left glenohumeral arthroplasty in expected position. Electronically signed by: Tre Stern M.D. Narrative 05/25/2024 11:34 AM ELECTRONIC SYSTEMS SECURITY ASSESSMENT XR SHOULDER LEFT 2 OR MORE VIEWS [...] al Result * eGFR (05/09/2024 6:07 AM ELECTRONIC SYSTEMS SECURITY ASSESSMENT) eGFR >90 >=60 mL/min/1. 73 m2 Comment: [...] last reviewed 2021. Blood 05/09/2024 6:07 AM ELECTRONIC SYSTEMS SECURITY ASSESSMENT 05/09/2024 7:46 AM ELECTRONIC SYSTEMS SECURITY ASSESSMENT us Sarmad Duckworth MD LAB BLOOD ORDERABLES Final Result [facility] Department [place] [address] * Differential, auto (05/09/2024 6:07 AM ELECTRONIC SYSTEMS SECURITY ASSESSMENT) Neutrophil abs 4.9 1.5 - 6.5 K/cumm Imm gran abs 0.0 0.0 - 0.1 K/cumm [facility] Lymphocyte abs 0.9 0.8 - 3.3 K/cumm [facility] Monocyte abs 0.5 0.2 - 0.8 K/cumm [facility] Eosinophil abs 0.0 0.0 - 0.5 K/cumm [facility] Basophil abs 0.0 0.0 - 0.1 K/cumm [facility] Neutrophil pct 77.9 % [facility] Comment: Interpretive Data Percent cell count reference ranges are not reported, since discordance with absolute values may lead to misinterpretation of CBC data. Current Interpretive Data was last revised on 2017. Imm gran pct 0.6 % [facility] Comment: Interpretive Data Percent cell count reference ranges are not reported, since discordance with absolute values may lead to misinterpretation of CBC data. Current Interpretive Data was last revised on 2017. Lymphocyte pct 13.7 % [facility] Comment: Interpretive Data Percent cell count reference ranges are not reported, since discordance with absolute values may lead to misinterpretation of CBC data. Current Interpretive Data was last revised on 2017. Monocyte pct 7.4 % [facility] Comment: Interpretive Data Percent cell count reference ranges are not reported, since discordance with absolute values may lead to misinterpretation of CBC data. Current Interpretive Data was last revised on 2017. Eosinophil pct 0.2 % [facility] Comment: Interpretive Data Percent cell count reference ranges are not reported, since discordance with absolute values may lead to misinterpretation of CBC data. Current Interpretive Data was last revised on 2017. Basophil pct 0.2 % [facility] Comment: Interpretive Data Percent cell count reference ranges are not reported, since discordance with absolute values may lead to misinterpretation of CBC data. Current Interpretive Data was last revised on 2017. Blood 05/09/2024 6:07 AM ELECTRONIC SYSTEMS SECURITY ASSESSMENT 05/09/2024 7:25 AM ELECTRONIC SYSTEMS SECURITY ASSESSMENT Sarmad Duckworth MD LAB BLOOD ORDERABLES Final Result Performing Organization Address [facility] Co de Phone Number [facility] [place] [address] * (ABNORMAL) CBC with auto differential (05/09/2024 6:07 AM ELECTRONIC SYSTEMS SECURITY ASSESSMENT) Pathologist [facility] WBC 6.2 3.8 - 9.9 K/cumm Hgb 10.1(L) 11.9 - 15.5 g/dL [facility] Hct 32.4(L) 35.6 - 45.5 % [facility] Plt 132(L) 150 - 400 K/cumm [facility] MPV 9.3 9.1 - 12.3 fL [facility] RBC 3.70(L) 3.90 - 5.20 M/cumm [facility] MCV 87.6 81.3 - 96.4 fL [facility] MCH 27.3 27.1 - 33.3 pg [facility] MCHC 31.2(L) 32.3 - 35.7 g/dL [facility] RDW CV 14.7 11.1 - 14.9 % [facility] RDW SD 47.8 35.7 - 48.1 fL [facility] NRBC abs 0.00 0.00 - 0.01 K/cumm [facility] Blood 05/09/2024 6:07 AM ELECTRONIC SYSTEMS SECURITY ASSESSMENT 05/09/2024 7:25 AM ELECTRONIC SYSTEMS SECURITY ASSESSMENT Sarmad Duckworth MD LAB BLOOD ORDERABLES Final Result Performing Organization Address City/[facility]/ZIP Co de Phone Number [facility] Department [place] [address] * (ABNORMAL) Basic metabolic panel (05/09/2024 6:07 AM ELECTRONIC SYSTEMS SECURITY ASSESSMENT) Sodium 133(L) 135 - 145 mmol/L Potassium, pl 4.6 3.3 - 4.9 mmol/L [facility] Chloride 98 97 - 110 mmol/L [facility] CO2 28 22 - 32 mmol/L [facility] Anion gap 7 2 - 15 mmol/L [facility] BUN 14 6 - 25 mg/dL [facility] Creatinine 0.69 0.60 - 1.10 mg/dL [facility] Glucose 129 70 - 199 mg/dL [facility] Comment: Interpretive Data Fasting glucose >/= 126 [...] 2022. Calcium 9.0 8.5 - 10.3 mg/dL [facility] Blood 05/09/2024 6:07 AM ELECTRONIC SYSTEMS SECURITY ASSESSMENT 05/09/2024 7:25 AM ELECTRONIC SYSTEMS SECURITY ASSESSMENT Narrative [facility] - 05/09/2024 8:14 AM ELECTRONIC SYSTEMS SECURITY ASSESSMENT Daily us Sarmad Duckworth MD LAB BLOOD ORDERABLES Final Result [facility] Department [place] [address] * (ABNORMAL) POC Blood Gas and Chemistries, Venous - (05/08/2024 5:06 PM ELECTRONIC SYSTEMS SECURITY ASSESSMENT) Pathologist [facility] pH, Rose Mary POC 7.33 7.32 - 7.43 pCO2, rose mary POC 56(H) 40 - 50 mmHg [facility] pO2, rose mary POC 54 mmHg [facility] Na, POC 133(L) 135 - 145 mmol/L [facility] K POC 4.1 3.3 - 4.9 mmol/L [facility] Comment: Interpretive Data Not all point of care methods assess for hemolysis. Confirm with instrument and retest K+ if not consistent with clinical signs and symptoms. Current Interpretive Data was last revised on 2023. Cl, POC 101 97 - 110 mmol/L [facility] Ionized Ca, POC 4.81 4.50 - 5.10 mg/dL [facility] Glucose, POC 141 70 - 199 mg/dL [facility] Lactate, POC 1.3 0.7 - 2.0 mmol/L [facility] O2 Sat, Rose Mary POC (Phyllis) 78 % [facility] Base excess, POC 2.4 mmol/L [facility] HCO3, Rose Mary POC 30 20 - 30 mmol/L [facility] Hct, POC 39.0 36.3 - 45.3 % [facility] Total Hb, POC 12.9 11.9 - 15.5 g/dL [facility] Blood 05/08/2024 5:06 PM ELECTRONIC SYSTEMS SECURITY ASSESSMENT 05/08/2024 5:06 PM ELECTRONIC SYSTEMS SECURITY ASSESSMENT us Sharyn Garcia MD LAB POCT ORDERABLES - DEVICE Final Result [facility] Department [place] [address] * XR Shoulder Left 2+ View (05/08/2024 4:27 PM ELECTRONIC SYSTEMS SECURITY ASSESSMENT) Anatomical Region Laterality Modality Upper Extremities, Shoulder Left Comp uted Radiography 05/08/2024 4:31 PM ELECTRONIC SYSTEMS SECURITY ASSESSMENT Impressions 05/08/2024 4:31 PM ELECTRONIC SYSTEMS SECURITY ASSESSMENT New left reverse shoulder arthroplasty in expected position. Electronically signed by: Jake Hassan M.D. Narrative 05/08/2024 4:31 PM ELECTRONIC SYSTEMS SECURITY ASSESSMENT EXAMINATION: XR SHOULDER LEFT 2 OR MORE [...] IMG XR PROCEDURES Final Re sult * LA AN ELECTIVE ENDOTRACHEAL AIRWAY, LA AN PROCEDURE PLACEHOLDER (05/08/2024 2:22 PM ELECTRONIC SYSTEMS SECURITY ASSESSMENT) Narrative Tab Davis MD - 05/08/2024 2:22 PM ELECTRONIC SYSTEMS SECURITY ASSESSMENT Tab Davis MD 05/08/2024 3:36 PM Airway [...] ANESTHESIA ORDERABLES Edited Result - Final * LA AN PROCEDURE PLACEHOLDER (05/08/2024 1:30 PM ELECTRONIC SYSTEMS SECURITY ASSESSMENT) Narrative Kaushik Marinelli MD - 05/08/2024 1:30 PM ELECTRONIC SYSTEMS SECURITY ASSESSMENT Kaushik Marinelli MD 05/08/2024 2:28 PM Peripheral [...] patient tolerated procedure well with no complications Mini Crowe MD ANESTHESIA ORD ERABLES Final Result * LA AN PROCEDURE PLACEHOLDER (05/08/2024 1:18 PM ELECTRONIC SYSTEMS SECURITY ASSESSMENT) Kaushik Lin MD - 05/08/2024 1:18 PM ELECTRONIC SYSTEMS SECURITY ASSESSMENT Mini Deleon Oca, MD 05/08/2024 1:30 PM [...] Shoulder Left WO Contrast (04/27/2024 5:12 PM ELECTRONIC SYSTEMS SECURITY ASSESSMENT) Anatomical Region Laterality Modality Upper Extremities Left Computed Tomog bhaskar 04/27/2024 5:39 PM ELECTRONIC SYSTEMS SECURITY ASSESSMENT Impressions 04/27/2024 5:39 PM ELECTRONIC SYSTEMS SECURITY ASSESSMENT 1. Preoperative planning CT demonstrates chronic left rotator cuff tear with severe rotator cuff tear arthropathy, superior escape of the humeral head, acromial fragmentation, and mildly deficient glenoid bone stock. Electronically signed by: Pio Mendoza M.D. Narrative 04/27/2024 5:39 PM ELECTRONIC SYSTEMS SECURITY ASSESSMENT EXAMINATION: CT SHOULDER LEFT WO CONTRAST HISTORY: [...] was performed without contrast [facility] to the [facility] protocol and multiplanar reformatted images were [...] by: Pio Mendoza M.D. Sharyn Garcia MD IM CT PROCEDURES Fin al Result * TYPE AND SCREEN 14 DAY (04/27/2024 4:51 PM ELECTRONIC SYSTEMS SECURITY ASSESSMENT) ABO Rh O Positive [place], indirect Negative [facility] Comment:Patient has previous antibody history Blood 04/27/2024 4:51 PM ELECTRONIC SYSTEMS SECURITY ASSESSMENT 04/27/2024 5:42 PM ELECTRONIC SYSTEMS SECURITY ASSESSMENT Narrative SIL PEARSON - 04/27/2024 6:48 PM ELECTRONIC SYSTEMS SECURITY ASSESSMENT Is this test being ordered in advance for a procedure?->Yes Expected date of procedure:->05/08/24 Has the patient been transfused in the past 3 months?->No Has the patient been in the past 3 months?->No Emili Dasilva NP LAB BLOOD BANK TEST O RDERABLES Final Result Performing Organization Address City/State/[facility] Co de Phone Number [facility] Department [place] [address] * eGFR (04/27/2024 4:51 PM ELECTRONIC SYSTEMS SECURITY ASSESSMENT) eGFR >90 >=60 mL/min/1. 73 m2 Comment: [...] last reviewed 2021. Blood 04/27/2024 4:51 PM ELECTRONIC SYSTEMS SECURITY ASSESSMENT 04/27/2024 5:30 PM ELECTRONIC SYSTEMS SECURITY ASSESSMENT us Sharyn Garcia MD LAB BLOOD ORDERABLES Final Result SIL BONILLA [facility] [place] [address] * Differential, auto (04/27/2024 4:51 PM ELECTRONIC SYSTEMS SECURITY ASSESSMENT) Neutrophil abs 4.7 1.5 - 6.5 K/cumm Imm gran abs 0.1 0.0 - 0.1 K/cumm [facility] Lymphocyte abs 1.3 0.8 - 3.3 K/cumm [facility] Monocyte abs 0.5 0.2 - 0.8 K/cumm [facility] Eosinophil abs 0.2 0.0 - 0.5 K/cumm [facility] Basophil abs 0.0 0.0 - 0.1 K/cumm [facility] Neutrophil pct 70.0 % [facility] Comment: Interpretive Data Percent cell count reference ranges are not reported, since discordance with absolute values may lead to misinterpretation of CBC data. Current Interpretive Data was last revised on 2017. Imm gran pct 0.7 % [facility] Comment: Interpretive Data Percent cell count reference ranges are not reported, since discordance with absolute values may lead to misinterpretation of CBC data. Current Interpretive Data was last revised on 2017. Lymphocyte pct 18.8 % [facility] Comment: Interpretive Data Percent cell count reference ranges are not reported, since discordance with absolute values may lead to misinterpretation of CBC data. Current Interpretive Data was last revised on 2017. Monocyte pct 7.8 % [facility] Comment: Interpretive Data Percent cell count reference ranges are not reported, since discordance with absolute values may lead to misinterpretation of CBC data. Current Interpretive Data was last revised on 2017. Eosinophil pct 2.4 % [facility] Comment: Interpretive Data Percent cell count reference ranges are not reported, since discordance with absolute values may lead to misinterpretation of CBC data. Current Interpretive Data was last revised on 2017. Basophil pct 0.3 % [facility] Comment: Interpretive Data Percent cell count reference ranges are not reported, since discordance with absolute values may lead to misinterpretation of CBC data. Current Interpretive Data was last revised on 2017. Blood 04/27/2024 4:51 PM ELECTRONIC SYSTEMS SECURITY ASSESSMENT 04/27/2024 5:29 PM ELECTRONIC SYSTEMS SECURITY ASSESSMENT Emili Dasilva PATIENT FLOW COORDINATOR LAB BLOOD ORDERABLES Final Result Performing Organization Address City/[facility]/ZIP Co de Phone Number [facility] [place] [address] * CBC with auto differential (04/27/2024 4:51 PM ELECTRONIC SYSTEMS SECURITY ASSESSMENT) Pathologist [facility] WBC 6.8 3.8 - 9.9 K/cumm Hgb 12.2 11.9 - 15.5 g/dL [facility] Hct 37.8 35.6 - 45.5 % [facility] Plt 166 150 - 400 K/cumm [facility] MPV 9.4 9.1 - 12.3 fL [facility] RBC 4.49 3.90 - 5.20 M/cumm [facility] MCV 84.2 81.3 - 96.4 fL [facility] MCH 27.2 27.1 - 33.3 pg [facility] MCHC 32.3 32.3 - 35.7 g/dL [facility] RDW CV 14.7 11.1 - 14.9 % [facility] RDW SD 45.1 35.7 - 48.1 fL [facility] NRBC abs 0.00 0.00 - 0.01 K/cumm [facility] Blood 04/27/2024 4:51 PM ELECTRONIC SYSTEMS SECURITY ASSESSMENT 04/27/2024 5:29 PM ELECTRONIC SYSTEMS SECURITY ASSESSMENT Emili Dasilva PATIENT FLOW COORDINATOR LAB BLOOD ORDERABLES Final Result Performing Organization Address City/[facility]/ZIP Co de Phone Number [facility] [place] [address] * Vitamin D 25 hydroxy (04/27/2024 4:51 PM ELECTRONIC SYSTEMS SECURITY ASSESSMENT) Pathologist [facility] Vitamin D 25-OH 37 30 - 80 ng/mL Blood 04/27/2024 4:51 PM ELECTRONIC SYSTEMS SECURITY ASSESSMENT 04/27/2024 5:30 PM ELECTRONIC SYSTEMS SECURITY ASSESSMENT us Sharyn Garcia MD LAB BLOOD ORDERABLES Final Result [facility] Department [place] [address] * (ABNORMAL) Comprehensive metabolic panel (04/27/2024 4:51 PM ELECTRONIC SYSTEMS SECURITY ASSESSMENT) Sodium 131(L) 135 - 145 mmol/L Potassium, pl 4.3 3.3 - 4.9 mmol/L [facility] Chloride 95(L) 97 - 110 mmol/L [facility] CO2 29 22 - 32 mmol/L [facility] Anion gap 7 2 - 15 mmol/L [facility] BUN 10 6 - 25 mg/dL [facility] Creatinine 0.65 0.60 - 1.10 mg/dL [facility] Glucose 88 70 - 199 mg/dL [facility] Comment: Interpretive Data Fasting glucose >/= 126 [...] 2022. Calcium 9.5 8.5 - 10.3 mg/dL [facility] Bilirubin, total 0.6 0.1 - 1.2 mg/dL [facility] Protein, pl 7.1 6.5 - 8.5 g/dL [facility] Albumin 4.3 3.5 - 5.0 g/dL [facility] Alk phos 121 40 - 130 Units/L [facility] ALT 10 7 - 45 Units/L [facility] AST 21 10 - 45 Units/L [facility] Blood 04/27/2024 4:51 PM ELECTRONIC SYSTEMS SECURITY ASSESSMENT 04/27/2024 5:30 PM ELECTRONIC SYSTEMS SECURITY ASSESSMENT Sharyn Garcia MD LAB BLOOD ORDERABLES Final Result Performing Organization Address City/[facility] Co de Phone Number [facility] Department [place] [address] * ECG 12 lead (04/27/2024 3:50 PM ELECTRONIC SYSTEMS SECURITY ASSESSMENT) Ventricular Rate EKG/Min 62 BPM [facility] Atrial Rate 62 BPM [facility] LA-Interval (MSEC) 216 ms [facility] QRS-Interval (MSEC) 92 ms [facility] QT-Interval (MSEC) 456 ms [facility] QTc 462 ms [facility] P [place] 63 degrees [facility] R [place] 28 degrees [facility] T [place] 53 degrees [facility] Diagnosis Sinus rhythm with 1st degree A-V block Incomplete right bundle branch block Poor precordial R wave progression consistent with faulty lead placement, copd, etc. ; consider anterior infarct, lead placement, or normal variant Abnormal ECG When compared with ECG of 30-DEC-2008 09:31, LA interval has increased Confirmed by MARVA CHAVEZ M.D ([id number]) on 04/28/2024 10:01:40 AM [facility] 04/27/2024 3:50 PM ELECTRONIC SYSTEMS SECURITY ASSESSMENT 04/28/2024 10:01 AM ELECTRONIC SYSTEMS SECURITY ASSESSMENT us Emili Dasilva PATIENT FLOW COORDINATOR ECG ORDERABLES Final Result Performing Organization Address [facility] Co de Phone Number [facility] * POCT lipid panel (09/13/2023 2:22 PM CDT) Cholesterol, POC 137 mg/dL HDL, POC 51 mg/dL Triglycerides, POC 75 mg/dL LDL Cholesterol POC 71 mg/dL Chol/HDL Ratio, POC 1.4 Non-HDL Cholesterol, POC 86 mg/dL Cholesterol Total, POC 137 mg/dL Capillary blood 09/13/2023 2 :22 PM CDT us Nacho Pina MD POINT OF CARE TEST ORDERA BLES Final Result * Hemoglobin A1c (11/11/2019 6:17 AM CDT) Hgb A1C 5.1 4.0 - 5.6 % [facility] Estimated Average Glucose 100 mg/dL [facility] Comment: The ADA recommends reporting an estimated Average Glucose (eAG) with all Hemoglobin A1c results using the equation derived from a study of 507 normal and diabetic adults. Minority populations were underrepresented and children were not included. (Diabetes Care 31:6365-3554, 2008). The eAG is not equivalent to a fasting glucose. Blood specimen (specimen) 11/11/2019 6:17 AM CDT 11/11/2019 6:34 AM CDT Ovidio Bryant MD LAB BLOOD ORDERABLES Fin al Result [facility] [address] Department [place] [address] from Last 3 Months or Most Recently Relevant to Health Maintenance Insurance MEDICARE [facility] SUPPLEMENT DARYL MCCLOUD [id number] MEDICARE [facility] FOR LIFE [facility] [place] [place] [id number] R [facility] MEDICARE [employer]System MEDICARE [facility] MCR SUPPLEMENT DARY[place] [id number] Advance Directives For more information, please contact: [phone] * Full Code (Latest Code Status on File) Date Activated Date Inactivated Comments 05/08/2024 7:18 PM 05/09/2024 3:37 PM * Full Code Date Activated Date Inactivated Comments 11/11/2019 1:12 PM 11/17/2019 7:59 PM Care Teams Assistant Maintenance Manager Relationship Specialty Start Date End Date Shannan Dennis MD PCP - General 06/29/16 Nacho Pina MD [address] [place] [address] Livestock Dealer Cardiology 04/07/24 Ovidio Villagran MD [address] [place] [address] [employer] Critical Care Med 04/07/24
--- OUTSIDE RECORDS SUMMARY | 2024-07-09 14:53 | XMS_ITS | Clinical Summary ---
Author Organization [facility] [place] Address [address] [place] [address] Phone Care Team Providers Care Payroll Director Name Role Phone Shannan Dennis MD Primary Care Provider [phone] Allergies Active Allergy Reactions Criticality Noted Date Comments Morphine Itching Low 12/06/2009 Medications aspirin (RAMON) 81 mg Oral Tab Take by mouth. Active CALCIUM ORAL Take by mouth. Active VITAMIN B COMPLEX (B COMPLEX-VITAMIN B12 ORAL) Take by mouth. Active hydroCHLOROthiaz kaylee (MICROZIDE) 12.5 mg capsuleIndicatio ns:Family history of malignant neoplasm of breast,Family history of pancreatic cancer,S/P reduction mammoplasty Take by mouth. Active citalopram (CeleXA) 40 mg tabletIndication s:Family history of malignant neoplasm of breast,Family history of pancreatic cancer,S/P reduction mammoplasty Take by mouth. Active cetirizine (ZyrTEC) 10 mg tabletIndication s:Family history of malignant neoplasm of breast,Family history of pancreatic cancer,S/P reduction mammoplasty Indications : once a day Active zolpidem (AMBIEN) 10 mg tabletIndication s:Family history of malignant neoplasm of breast,Family history of pancreatic cancer,S/P reduction mammoplasty Take by mouth. Active metoprolol succinate (TOPROL XL) 25 mg Extended Release 24 hour tabletIndication s:Family history of malignant neoplasm of breast,Family history of pancreatic cancer,S/P reduction mammoplasty Take by mouth. Active eluxadoline 75 mg TabletIndication s:Family history of malignant neoplasm of breast,Family history of pancreatic cancer,S/P reduction mammoplasty Take by mouth. 05/15/2016 Active B INFANTIS/B ANI/B FERNANDO/B BIFID (PROBIOTIC 4X ORAL)Indications :Family history of malignant neoplasm of breast,Family history of pancreatic cancer,S/P reduction mammoplasty Take by mouth. Active lisinopril (PRINIVIL) 10 mg tabletIndication s:Family history of malignant neoplasm of breast,Family history of pancreatic cancer,S/P reduction mammoplasty Take 10 mg by mouth daily. Active amiodarone (CORDARONE) 200 mg tablet Take 200 mg by mouth. 05/07/2018 Active amLODIPine (NORVASC) 5 mg tablet TAKE 1 TABLET BY MOUTH ONCE DAILY 03/31/2018 Active rivaroxaban (XARELTO) 20 mg Tablet Take 20 mg by mouth. 11/18/2017 Active losartan (COZAAR) 50 mg tablet TAKE 1 TABLET BY MOUTH ONCE DAILY 04/28/2018 Active furosemide (LASIX) 40 mg tablet Take 40 mg by mouth daily. Active oxybutynin chloride (DITROPAN) 5 mg tablet Take 5 mg by mouth 3 times daily. Active Active Problems Patient Care Coordination No te Formatting of this note migh t be different from the original. Primary Care: Shannan Dennis MD Referring Provider: Shannan Dennis MD [address] [place] [address] Other: Problem Noted Date Diagnosed Date Family history of malignant neoplasm of breast 1 04/17/2013 Family history of pancreatic cancer 02/15/2014 Lump or mass in breast 01/20/2014 S/P reduction mammoplasty 12/06/2009 MVP (mitral valve prolapse) 12/06/2009 Arthropathy, unspecified, site unspecified Diabetes GERD (gastroesophageal reflux disease) Mitral valve disorder Anemia Resolved Problems Problem Noted Date Diagnosed Date Resolved Date Wedge compression fracture o f third lumbar vertebra with routine healing 05/19/2018 07/15/2018 Family History Medical History Relation Name Comments Pancreatic Cancer Brother 60s Heart Disease Father Pancreatic Cancer Father 60s Diabetes Mother Heart Disease Mother Breast Cancer Paternal Grandmother dx renny elsy 50, Cancer Sister skin Relation Name Status Comments Brother Father Mother Paternal Grandmother Sister Alive Social History Tobacco Use Types Packs/Day Years Used Date Smoking Tobacco: Never Smokeless Tobacco: Never Alcohol Use Standard Drinks/Week Comments Yes 0 (1 standard drink = 0.6 oz pur e alcohol) moderate Comments No Sex and Gender Information Value Date Recorded Sex Assigned at Not on file Legal Sex Female 5:41 AM PROCESS EXPERT Gender Identity Not on file Sexual Orientation Not on file Occupation Industry Job Start Date Job End Date Not on file Not on file Not on file Not on file Last Filed Vital Signs Vital Sign Reading Time Taken Comments Blood Pressure 118/60 05/19/2018 4:45 PM PROCESS EXPERT Pulse 92 07/30/2016 2:32 PM CDT Temperature - - Respiratory Rate - - Oxygen Saturation - - Inhaled Oxygen Concentration - - Weight 78 kg (172 lb) 05/19/2018 4:45 PM PROCESS EXPERT Height 157.5 cm (5' 2 ) 05/19/2018 4:45 PM PROCESS EXPERT Body Mass Index 31.46 05/19/2018 4:45 PM PROCESS EXPERT Plan of Treatment Health Maintenance Due Date Last Done Comments DIABETES ANNUAL FOOT EXAM 12/25/1969 DIABETES ANNUAL RETINAL EXAM 12/25/1969 DIABETES HBA1C Q 6 MONTHS 12/25/1969 DIABETES MICROALBUMIN ANNUAL SCREEN 12/25/1969 LDL CHOLESTEROL ANNUAL 12/25/1969 DTAP/TDAP/TD VACCINES (1 - Tdap) 12/25/1970 PNEUMOCOCCAL VACCINE 50+ YEA RS (1 of 2 - PCV) 12/25/1970 COLORECTAL SCREENING 12/25/1996 Colorectal Cancer Screening 12/25/1996 FIT-DNA Q 3 years 12/25/1996 FIT/FOBT Q 1 year 12/25/1996 Flex Sig/CT Colonography Q 5 years 12/25/1996 ZOSTER VACCINE (2 of 3) 05/07/2013 03/12/2013 OSTEOPOROSIS SCREENING 12/25/2016 BREAST CANCER SCREENING 07/30/2017 07/31/19 17, 03/16/2015, 02/10/2014, Additional history exists INFLUENZA VACCINE (#1) 2023 0, 12/14/2016, 01/18/2016, Additional history exists RSV VACCINE (60+ or ) (1 - 1-dose 75+ series) 12/25/2026 Procedures Procedure Name Priority Date/Time Associated Diagnosis Comments MAMMO 3D ZACKARY DIAGNOSTIC BILAT W OR WO CAD Routine 07/30/2016 2:05 PM CDT Family history of malignant neoplasm of breast from Last 3 Months or Most Recently Relevant to Health Maintenance Results * MAMMO DIAG BILAT 3D ZACKARY W OR WO CAD (07/30/2016 2:05 PM CDT) Anatomical Region Laterality Modality Breast Bilateral Mammography 07/30/2016 2:05 PM CDT Impressions 07/30/2016 2:32 PM CDT IMPRESSION: No mammographic evidence of malignancy. Recommendation: Annual mammography. BI-RADS 2: Benign. Dictated from: Gretchen Casillas Narrative 07/30/2016 2:32 PM CDT EXAM: BILATERAL DIGITAL DIAGNOSTIC MAMMOGRAPHY WITH CAD AND 3-D TOMOSYNTHESIS UTILIZED. DATE: 07/30/2016 COMPARISON: Prior imaging studies dating back to 12/06/2009 INDICATION: History of benign breast disease, yearly exam. Breast composition: Scattered fibroglandular densities. FINDINGS: No suspicious mass or microcalcification. Bilateral benign-appearing calcifications are redemonstrated. The patient is status post breast reduction. CAD was utilized. Procedure Note Rosita Serrano MD - 07/30/2016 EXAM: BILATERAL DIGITAL DIAGNOSTIC MAMMOGRAPHY WITH CAD AND 3-D TOMOSYNTHESIS UTILIZED. DATE: 07/30/2016 COMPARISON: Prior imaging studies dating back to 12/06/2009 INDICATION: History of benign breast disease, yearly exam. Breast composition: Scattered fibroglandular densities. FINDINGS: No suspicious mass or microcalcification. Bilateral benign-appearing calcifications are redemonstrated. The patient is status post breast reduction. CAD was utilized. IMPRESSION IMPRESSION: No mammographic evidence of malignancy. Recommendation: Annual mammography. BI-RADS 2: Benign. Dictated from: Gretchen Casillas Mercy Avitia MD MAMMO ORDERABLES Final Result from Last 3 Months or Most Recently Relevant to Health Maintenance Insurance MEDICARE PART A AND B FOR LIFE [employer] PPO Care Teams Payroll Director Relationship Specialty Start Date End Date Shannan Dennis MD [address] [place] [id number] PCP - General 04/28/08
--- OUTSIDE RECORDS SUMMARY | 2024-07-09 14:53 | XMS_ITS | Encounter Summary ---
Author Organization [facility] Address [address] [place] [address] Care Team Providers Care Manager Infrastructure Name Role Phone Shannan Dennis MD Primary Care Provider [phone] Encounter Details Date Type Department Care Team (Late st Contact Info) Description 06/06/2021 Lab Requisition [facility] [address] [place] [id number] Maxi Denise MD [address] [place] [address] Social History Tobacco Use Types Packs/Day Years Used Date Smoking Tobacco: Never Assessed Sex and Gender Information Value Date Recorded Sex Assigned at Not on file Gender Identity Not on file Sexual Orientation Not on file documented as of this encounter Plan of Treatment Not on file documented as of this encounter Procedures Procedure Name Priority Date/Time Associated Diagnosis Comments DERMATOPATHOLOGY Routine 06/05/2021 12:0 0 AM SILVER MINER BLASTING documented in this encounter Results * DERMATOPATHOLOGY (06/05/2021 12:00 AM SILVER MINER BLASTING) Case Report Dermatopathology Report Case: [id number] Authorizing Provider: Maxi Denise MD Collected: 06/05/2021 12:00 AM Ordering Location: [facility] Received: 06/06/2021 05:05 PM Pathologist: Ginger Correa MD Specimens: A) - Skin, right posterior shoulder B) - Skin, left sideburn 2 3:23 PM [facility] Final Diagnosis Specimen A. 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 SKIN, left sideburn: SEBORRHEIC KERATOSIS, IRRITATED AND INFLAMED (L82.0) 2 3:23 PM [facility] Clinical History A: ISK vs. SCCA Path# [id number] B: ISK vs. SCCA Path# [id number] 2 3:23 PM [facility] Gross Description Specimen A: Received is one formalin filled container labeled with the patient's name and designated right posterior shoulder. The specimen consists of a shave biopsy measuring [id number]. Jar 0. Specimen B: Received is one formalin filled container labeled with the patient's name and designated left sideburn. The specimen consists of a shave biopsy measuring [id number]. Jar 0. 2 3:23 PM [facility] Microscopic Description Specimen A. SKIN, right posterior shoulder: The epidermis shows parakeratosis, full thickness disorderly maturation of keratinocytes, mitoses at different levels, and dyskeratotic cells. Specimen B. SKIN, left sideburn: Sections show acanthosis, papillomatosis, hyperkeratosis, and squamous eddies. There is a lymphohistiocytic infiltrate within the papillary dermis. 2 3:23 PM [facility] Disclaimer An external and internal positive and negative controls are appropriate for the histochemical, immunohistochemical and immunofluorescence stain(s) in this case (if any), except where stated explicitly. The performance characteristics of the stain(s) cited in this report were developed and its performance characteristic determined by the Dermatopathology Laboratory at [facility], directed by Dr. Norris Blancas. These tests need not be, and therefore are not, approved by the [place] Food and Drug Administration. The tests are used for clinical purposes. Billing Codes Specimen Charges Stain Charges 77135 93006 1 1 2 3:23 PM [facility] Embedded Images 2 3:23 PM [facility] Pathology/Cytology TISSUE SPECIMEN FROM SKIN / Unknown 06/05/2021 06/06/2021 5:05 PM [employer] Miscellaneous samples (specimen) TISSUE SPECIMEN FROM SKIN / Unknown 06/05/2021 06/06/2021 5:05 PM [employer]IL[employer]ER [employer]ING Maxi Denise MD LAB - PATHOLOGY/CYTO LOGY ORDERABLES DERMATOPATHOLOGY LABORATORY [facility] - Department of Dermatology [facility] [address] [place] [address], [address] [phone] documented in this encounter Visit Diagnoses Not on filedocumented in this encounter Care Teams Manager Infrastructure Relationship Specialty Start Date End Date Shannan Dennis MD [address] [place] [address] PCP - General Family Medicine 09/16/21 documented as of this encounter
--- OUTSIDE RECORDS SUMMARY | 2024-07-09 14:53 | XMS_ITS | Encounter Summary ---
Author Organization [facility] Address [address] [place] [address] Care Team Providers Care Senior Advocate Name Role Phone Shannan Dennis MD Primary Care Provider [phone] Shannan Dennis MD Primary Care Provider [phone] Nacho Pina MD Unavailable [phone] Ovidio Villagran MD Unavailable [phone] Encounter Details Date Type Department Care Team (Late st Contact Info) Description 05/11/2016 [facility] Only [facility] ProviderKonstantin MD [address] [place] [address] Social History Tobacco Use Types Packs/Day Years Used Date Smoking Tobacco: Never Alcohol Use Standard Drinks/Week Comments Yes 0 (1 standard drink = 0.6 oz pur e alcohol) Comments Unknown Sex and Gender Information Value Date Recorded Sex Assigned at Not on file Legal Sex Female 10:24 AM MAINTENANCE ENGINEER Gender Identity Not on file Sexual Orientation Not on file documented as of this encounter Plan of Treatment Not on file documented as of this encounter Procedures Procedure Name Priority Date/Time Associated Diagnosis Comments CARDIOLOGY REPORT 05/11/2016 documented in this encounter Results * CARDIOLOGY REPORT (05/11/2016) Anatomical Region Laterality Modality Other Narrative 05/11/2016 Ordered by an unspecified provider. Historical Provider [facility] Final Result documented in this encounter Visit Diagnoses Not on filedocumented in this encounter Care Teams Senior Advocate Relationship Specialty Start Date End Date Shannan Dennis MD PCP - General 06/29/16 Shannan Dennis MD PCP - General 04/12/09 06/28/16 Nacho Pina MD [address] [facility] [address] [place] [address] Radio Sportscaster Cardiology 04/07/24 Ovidio Villagran MD [address] [place] [address] Fertilizer Loader Critical Care Med 04/07/24 documented as of this encounter
--- OUTSIDE RECORDS SUMMARY | 2024-07-09 14:53 | XMS_ITS | Clinical Summary ---
Author Organization [facility] Address [address], [facility] [address] [place] [address] Phone Care Team Providers Care Eyedotter Name Role Phone Shannan Dennis MD Primary Care Provider [phone] Holly Leong APRN, ECONOMIC MANAGER Unavailable Allergies Active Allergy Reactions Criticality Noted Date Comments Morphine Sulfate Itching Medications zolpidem (AMBIEN) 10 MG Tablet Take 10 mg by mouth nightly as needed. Active cetirizine (ZYRTEC ALLERGY) 10 MG TabletIndicatio ns:once a day Indications: once a day Active citalopram (CELEXA) 40 MG Tablet Take 20 mg by mouth daily. Active metoprolol Succinate (TOPROL XL) 25 MG TABLET SR 24 HR Take 50 mg by mouth daily. Active hydroCHLOROthia zide (MICROZIDE) 12.5 MG Capsule Take 12.5 mg by mouth daily as needed. Active Eluxadoline (VIBERZI) 75 MG Tablet Take 75 mg by mouth 2 times daily. 180 Tab 3 05/15/2016 Active Active Problems Problem Noted Date Diagnosed Date Irritable bowel syndrome with diarrhea 6 Bloating Abdominal pain, right upper quadrant Diarrhea Immunizations Immunization Administration Dates Next Due Covid-19, Mrna, Lnp-s, Pf, 30 Mcg/0.3 Ml Dose (P veronica) 06/16/2020,05/27/2020 Influenza Vaccine greater than 3 yrs 01/18/2016 Family History Medical History Relation Name Comments Cancer Brother Cancer Father Heart Attack Mother Relation Name Status Comments Brother Father Mother Social History Tobacco Use Types Packs/Day Years Used Date Smoking Tobacco: Never Alcohol Use Standard Drinks/Week Comments Yes 0 (1 standard drink = 0.6 oz pur e alcohol) wine daily Comments No Sex and Gender Information Value Date Recorded Sex Assigned at Not on file Legal Sex Female 8:38 PM CDT Gender Identity Not on file Sexual Orientation Not on file Last Filed Vital Signs Vital Sign Reading Time Taken Comments Blood Pressure 140/90 05/15/2016 11:12 AM GAS SINGER Pulse 68 05/15/2016 11:12 AM GAS SINGER Temperature 36.7 C (98.1 F) 05/15/2016 11:12 AM GAS SINGER Respiratory Rate 16 05/15/2016 11:12 AM GAS SINGER Oxygen Saturation 97% 05/15/2016 11:12 AM GAS SINGER Inhaled Oxygen Concentration - - Weight 83.9 kg (185 lb) 06/25/2016 3:00 PM CDT Height 157.5 cm (5' 2 ) 06/25/2016 3:00 PM CDT Body Mass Index 33.84 06/25/2016 3:00 PM CDT Plan of Treatment Health Maintenance Due Date Last Done Comments Hepatitis C Virus (HCV) Screening 1950 TdaP Immunization 1950 Colonoscopy 12/25/1996 Colorectal Cancer Screening 12/25/1996 Cologuard 12/25/2001 Immunochemical Fecal Occult Blood 12/25/2001 Pneumococcal Immunization (50+ years) (1 of 1 - PCV) 12/25/2001 Zoster Immunization (2 of 3) 05/07/2013 03/12/2013 Influenza Immunization (#1) 12/01/202312/30, 12/14/2016, 01/18/2016, Additional history exists SARS-COV-2 Immunization (2023- season) 2023 03/19/2021, 06/16/2020, 05/27/2020 Respiratory Syncytial Virus (RSV) Immunization (Adult) (1 - 1-dose 75+ series) 12/25/2026 Hepatitis B Immunization Aged Out No longer eligible based on patient's age to complete this topic Meningococcal Immunization (ACWY) Aged Out No longer eligible based on patient's age to complete this topic Rotavirus Immunization Aged Out No lo nger eligible based on patient's age to complete this topic Insurance [facility] MEDICARE [facility] SHARED net technical architect Care Teams Eyedotter Relationship Specialty Start Date End Date Shannan Dennis MD [address] [place] [address] PCP - General Family Medicine 01/25/16 Holly Leong, LIFTER DRIVER, ECONOMIC MANAGER [address] [place] [address] Nurse Practitioner Advanced Practice Nurse 01/25/16
--- OUTSIDE RECORDS SUMMARY | 2024-07-09 14:53 | XMS_ITS | Encounter Summary ---
Author Organization [facility] Address [address] [facility] [facility] [address] [place] [address] Care Team Providers Care Community Health Navigator Name Role Phone Shannan Dennis MD Primary Care Provider [phone] Shannan Dennis MD Primary Care Provider [phone] Nacho Pina MD Unavailable [phone] Ovidio Villagran MD Unavailable [phone] Encounter Details Date Type Department Care Team (Late st Contact Info) Description 10/21/2012 Orders Only [facility] ProviderKonstantin MD [address] [place] [address] Social History Tobacco Use Types Packs/Day Years Used Date Smoking Tobacco: Never Alcohol Use Standard Drinks/Week Comments Yes 0 (1 standard drink = 0.6 oz pur e alcohol) Comments Unknown Sex and Gender Information Value Date Recorded Sex Assigned at Not on file 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 Historical Provider [facility] Final Result documented in this encounter Visit Diagnoses Not on filedocumented in this encounter Care Teams Community Health Navigator Relationship Specialty Start Date End Date Shannan Dennis MD PCP - General 06/29/16 Shannan Dennis MD PCP - General 04/12/09 06/28/16 Nacho Pina MD [address] [facility] [address] [place] [address] Size Mixer Cardiology 04/07/24 Ovidio Villagran MD [address] [place] [address] Merchant Banker Critical Care Med 04/07/24 documented as of this encounter
--- OUTSIDE RECORDS SUMMARY | 2024-07-09 14:53 | XMS_ITS | Encounter Summary ---
Author Organization [facility] Address [address] [facility] [address] [place] [address] Care Team Providers Care Stamping Press Operator Name Role Phone Shannan Dennis MD Primary Care Provider [phone] Shannan Dennis MD Primary Care Provider [phone] Nacho Pina MD Unavailable [phone] Ovidio Villagran MD Unavailable [phone] Encounter Details Date Type Department Care Team (Late st Contact Info) Description 05/04/2016 Orders Only [facility] ProviderKonstantin MD [address] [place] [address] Social History Tobacco Use Types Packs/Day Years Used Date Smoking Tobacco: Never Alcohol Use Standard Drinks/Week Comments Yes 0 (1 standard drink = 0.6 oz pur e alcohol) Comments Unknown Sex and Gender Information Value Date Recorded Sex Assigned at Not on file 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 Historical Provider [facility] WHALE[facility] Final Result documented in this encounter Visit Diagnoses Not on filedocumented in this encounter Care Teams Stamping Press Operator Relationship Specialty Start Date End Date Shannan Dennis MD PCP - General 06/29/16 Shannan Dennis MD PCP - General 04/12/09 06/28/16 Nacho Pina MD [address] [facility] [address] [place] [address] Survey Compiler Cardiology 04/07/24 Ovidio Villagran MD [address] [place] [address] Manager Valuation Critical Care Med 04/07/24 documented as of this encounter
--- OUTSIDE RECORDS SUMMARY | 2024-07-09 14:53 | XMS_ITS | Clinical Summary ---
Author Organization [facility] Address [address] [facility] [place] [address] Care Team Providers Care Sawsmith Name Role Phone Shannan Dennis MD Primary Care Provider [phone] Source Comments [facility],non-[facility]iliates and Associated Physician Practices is amultiple site organization consisting of ambulatory clinics and hospital sitesin [place], [place], [place] and [place]. This disclosure is being madepursuant to the Care Everywhere program and may not contain all information available regarding this patient. Last updated 17.[facility] [employer] Allergies Active Allergy Reactions Criticality Noted Date Comments Lisinopril Other 09/17/2021 cough Morphine Itching 09/17/2021 Medications * Be aware that medications may not be up to date on this document. Alwaysverify current medications with the patient. Medication Sig Dispensed Refills Start Date End Date Status oxybutynin CR 24hr (DITROPAN-XL) 5 MG tablet Take 5 mg by mouth once daily Active guaiFENesin ER 12hr (MUCINEX) 600 MG tablet Take 600 mg by mouth every 12 hours Active citalopram (CELEXA) 40 MG tablet Take 40 mg by mouth once daily Active furosemide (LASIX) 40 MG tablet Take 40 mg by mouth once daily Active rivaroxaban (XARELTO) 20 MG tablet Take 20 mg by mouth daily with food Active losartan (COZAAR) 50 MG tablet Take 50 mg by mouth once daily Active metoprolol succinate XL 24hr (TOPROL XL) 50 MG tablet Take 50 mg by mouth once daily Active zolpidem (AMBIEN) 10 MG tablet Take 10 mg by mouth nightly as needed for Insomnia Active acetaminophen (TYLENOL) 500 MG tablet Take 2 (two) tablets by mouth every 8 hours Maximum allowable Acetaminophen amount = 4 Grams (4000 mg) / 24 hours. 09/28/2021 Active ferrous sulfate 325 (65 FE) MG tablet Take 1 (one) tablet by mouth daily with lunch 09/28/2021 Active bisacodyl (DULCOLAX) 10 MG suppository Insert 1 (one) suppository into the rectum once daily as needed for Constipation 09/28/2021 Active senna-docusate (SENOKOT-S) 8.6-50 MG tablet Take 1 (one) tablet by mouth once daily 09/29/2021 Active magnesium oxide (MAG-OX) 400 MG tablet Take 1 (one) tablet by mouth 2 times daily 09/28/2021 Active multivitamin daily tablet Take 1 (one) tablet by mouth once daily 09/29/2021 Active vitamin D, ergocalciferol, (DRISDOL) 1.25 MG (59577 UT) capsule Take 1 (one) capsule by mouth every 7 days 10/03/2021 Active Active Problems Problem Noted Date Diagnosed Date Closed fracture of left tibial plateau Vitamin D deficiency 09/19/2021 Tibial plateau fracture 09/17/2021 Hyponatremia 09/17/2021 Atrial fibrillation 09/17/2021 H/O mitral valve repair 09/17/2021 Nonischemic cardiomyopathy 09/17/2021 ANAM (obstructive sleep apnea) 07/27/2021 Chronic anticoagulation 09/21/2019 Iron deficiency anemia secon dennis to inadequate dietary iron intake 11/12/2018 Arthropathy 11/12/2018 Diabetes 11/12/2018 GERD (gastroesophageal reflux disease) 9 Mitral valve disorder 11/12/2018 Essential hypertension 05/04/2016 Overview (09/23/2021): Essential hypertension Non-rheumatic mitral regurgitation 05/04/2016 Overview (09/23/2021): Nonrheumatic mitral valve regurgitation Palpitations 05/04/2016 Overview (09/23/2021): Palpitations Irritable bowel syndrome with diarrhea 6 Family history of malignant neoplasm of breast 1 04/17/2013 Family history of pancreatic cancer 02/15/2014 Lump or mass in breast 01/20/2014 Benign neoplasm of pituitary gland 08/15/2013 Overview (09/23/2021): BENIGN ADAM PITUITARY Hiatal hernia 05/14/2013 Arthralgia of shoulder 01/21/2013 S/P reduction mammoplasty 12/06/2009 Acquired deformity of joint of foot 12/01/2008 Resolved Problems Problem Noted Date Diagnosed Date Resolved Date Fall 09/17/2021 09/28/2021 Immunizations Name Administration Dates Next Due FLU VACCINE TRI IIV3 SPLIT IM (FLUVIRIN) 016 INFLUENZA VACCINE, HIGH-DOSE , QUADR. (FLUZONE HIGH-DOSE QUADRIVALENT; 65Y+), 0.7 ML (HD-IIV4) 01/13/2020 INFLUENZA VACCINE, QUADR. (A FLURIA, FLUZONE QUADRIVALENT; 6MO+) (IIV4) 12/14/2016 INFLUENZA VACCINE, TRIV. (FL UZONE; FLULAVAL; FLUARIX; AFLURIA TRIVALENT; 6MO+), 0.5 ML (IIV3) 12/31/2015 ZOSTER VACCINE, LIVE 03/12/2013 Family History Medical History Relation Name Comments Cancer - Pancreatic Father Diabetes - Type 2 Mother Diabetes - Type 2 Sister Relation Name Status Comments Father Mother Sister Social History Tobacco Use Types Packs/Day Years Used Date Smoking Tobacco: Never Smokeless Tobacco: Never Tobacco Cessation:Counseling Given: Not Answered Alcohol Use Standard Drinks/Week Comments Yes 14 (1 standard drink = 0.6 oz pu re alcohol) AUDIT-C Answer Date Recorded Q1: How often do you have a drink containing alc ohol? 2-3 times a week 09/17/2021 Q2: How many drinks containi ng alcohol do you have on a typical day when you are drinking? 1 or 2 09/17/2021 Q3: How often do you have si x or more drinks on one occasion? Monthly 09/17/2021 PHQ-2 Answer Date Recorded Patient Health Questionnaire-2 Score 0 01/14/2024 Hunger Vital Sign Answer Date Recorded Within the past 12 months, y ou worried that your food would run out before you got the money to buy more. Never true 09/19/19 Within the past 12 months, t he food you bought just didn't last and you didn't have money to get more. Never true 09/18/2021 Sex and Gender Information Value Date Recorded Sex Assigned at Not on file Gender Identity Not on file Sexual Orientation Not on file Last Filed Vital Signs Vital Sign Reading Time Taken Comments Blood Pressure 139/71 01/14/2024 12:22 PM CDT Pulse 62 01/14/2024 12:22 PM CDT Temperature 36.7 C (98 F) 09/29/2021 8:03 AM CDT Respiratory Rate 18 09/29/2021 4:34 AM CDT Oxygen Saturation 94% 09/29/2021 8:03 AM CDT Inhaled Oxygen Concentration 21% 09/16/2021 8 :13 PM CDT Weight 81.6 kg (180 lb) 01/14/2024 12:22 PM CDT Height 157.5 cm (5' 2 ) 12/12/2021 1:29 PM CDT Body Mass Index 32.92 12/12/2021 1:29 PM CDT Plan of Treatment Health Maintenance Due Date Last Done Comments BONE DENSITY TESTING 1950 COLOGUARD (AGES 45-75) - COLON CA SCREENING [address] COLONOGRAPHY - COLON CA SCREENING 1950 FIT - COLON CA SCREENING 1950 FLEX SIG - COLON CA SCREENING 1950 MEDICARE AWV 12 MONTHS 1950 HEPATITIS C SCREENING 12/21/1969 DTAP/TDAP/TD VACCINES (1 - Tdap) 12/25/1970 PNEUMOCOCCAL VACCINE 50+ (1 of 2 - PCV) 12/25/1970 DIABETES-STATIN 1991 ZOSTER VACCINE (2 of 3) 05/07/2013 03/12/2013 MAMMOGRAM 07/30/2018 07/30/2016, 01/30, 07/07/2013, Additional history exists DIABETES RETINOPATHY SCREENING 09/23/2021 DIABETES-FOOT EXAM WITH MONOFILAMENT 09/23/2021 DIABETES-HGB A1C 09/23/2021 11/11/2019 DIABETES-SERUM CREATININE 09/29/20222021, 09/28/2021, 09/27/2021, Additional history exists COVID-19 VACCINE ( season) 2023 03/19/2021, 06/16/2020, 05/27/2020 DEPRESSION SCREENING 04/01/2024 DIABETES - URINE PROTEIN SCREENING 04/01/2024 INFLUENZA VACCINE (Season Ended) 2024 01/13/2020, 12/14/2016, 01/18/2016, Additional history exists Respiratory Syncytial Virus (RSV) Vaccine Pt: or over 60 yrs (1 - 1-dose 75+ series) 12/25/2026 COLONOSCOPY - COLON CA SCREENING 04/12/2031 04/12/2021 Colorectal Cancer Screening 04/12/2031 HEPATITIS B VACCINE Aged Out No longe r eligible based on patient's age to complete this topic HIB VACCINE Aged Out No longer eligi ble based on patient's age to complete this topic HPV VACCINE Aged Out No longer eligi ble based on patient's age to complete this topic MENINGOCOCCAL (Group B) VACCINE SHARED DECISION-MAKING Aged Out No longer eligible based on patient's age to complete this topic MENINGOCOCCAL GROUPS A/C/Y/W VACCINE Aged Out No longer eligible based on patient's age to complete this topic Medical Devices Implanted Type Area Booster Pump Operator Device Identifier Shelf Expiration Date Model / Serial / Lot Screw 3.5mm 60mm T15 Lck Slf-Tap Tip Tpr Implanted:Qty: 1 on 09/25/2021 by Mauricio Jones DO at [facility] Left: Leg [employer] [id number] / / Screw 3.5mm 65mm T15 Lck Slf-Tap Tip Tpr Implanted:Qty: 2 on 09/25/2021 by Mauricio Jones DO at [facility] Left: [employer] 8161-35-065 / / Screw 3.5mm 70mm T15 Lck Slf-Tap Tip Tpr Implanted:Qty: 2 on 09/25/2021 by Mauricio Jones DO at [facility] Left: [employer] [id number] / / Screw 3.5mm 34mm Ft Nonlock Hex Drv Elb Implanted:Qty: 1 on 09/25/2021 by Mauricio Jones, DO at [facility] Left: [employer] [id number] / / Screw 3.5mm 42mm Ft Slf-Tap Hex Lopro Implanted:Qty: 1 on 09/25/2021 by Mauricio Jones, DO at [facility] Left: [employer] [id number] / / Screw 3.5mm 40mm Ft Slf-Tap Hex Lopro Implanted:Qty: 2 on 09/25/2021 by Mauricio Jones, DO at [facility] Left: [employer] [id number] / / Plate 7 Hl Lck Lopro Dist Blt Tip Tib Lt Implanted:Qty: 1 on 09/25/2021 by Mauricio Jones, DO at [facility] Left: [employer] [id number] / / Screw 3.5mm 65mm 2.2mm Mldir Lck Sq Drv Implanted:Qty: 2 on 09/25/2021 by Mauricio Jones, DO at [facility] Left: [employer] [id number] / / Screw 3.5mm 60mm 2.2mm Mldir Lck Sq Drv Implanted:Qty: 1 on 09/25/2021 by Mauricio Jones, DO at [facility] Left: [employer] [id number] / / Screw 3.5mm 55mm T15 Lck Lopro Slf-Tap Implanted:Qty: 1 on 09/25/2021 by Mauricio Jones, DO at [facility] Left: [employer] [id number] / / Explanted Type Area Booster Pump Operator Device Identifier Shelf Expiration Date Model / Serial / Lot Pin Hlf 17.5cm 5mm Jtx Ss 30mm Extfix Implanted:Qty: 2 on 09/17/2021 by Mauricio Jones, DO at [facility] Explanted:Qty: 2 on 09/25/2021 by Mauricio Jones, DO at [facility] Pin Left: Leg [employer] [id number] / / Screw 3.5mm 38mm Ft Slf-Tap Hex Lopro Explanted:Qty: 1 on 09/25/2021 by Mauricio Jones DO at [facility] Left: [employer] [id number] / / Wire K 1.6mm 6in Hlf Bynt Pnt Ss Fx Explanted:Qty: 2 on 09/25/2021 at [facility] Left: [employer] [id number] / / Pin Hlf 35mm 5mm Jtx Lng Ti Ntrd Extfix Implanted:Qty: 2 on 09/17/2021 by Mauricio Jones DO at [facility] Explanted:Qty: 2 on 09/25/2021 by Mauricio Jones DO at [facility] Left: [employer] [id number] / / Screw 3.5mm 75mm T15 Lck Slf-Tap Tip Tpr Explanted:Qty: 1 on 09/25/2021 by Mauricio Jones DO at [facility] Left: [employer] [id number] / / Wire K 2mm 152mm Top Tray Ss Fx Explanted:Qty: 3 on 09/25/2021 by Mauricio Jones DO at [facility] Left: [employer] [id number] / / Screw 3.5mm 80mm Sq Drv Nonlock Lopro Explanted:Qty: 1 on 09/25/2021 by Mauricio Jones DO at [facility] Left: [employer] [id number] / / Procedures Procedure Name Priority Date/Time Associated Diagnosis Comments BASIC METABOLIC PANEL (CALCIUM TOTAL) Routine 09/29/2021 8:12 AM CDT from Last 3 Months or Most Recently Relevant to Health Maintenance Results * (ABNORMAL) BASIC METABOLIC PANEL (CALCIUM TOTAL) (09/29/2021 8:12 AM CDT) BUN 10 7 - 26 mg/dL 09/29/2021 8:47 AM CDT [facility] Creatinine 0.47(L) 0.56 - 0.96 mg/dL 09/29/2021 8:47 AM [facility] Sodium 132(L) 136 - 145 mmol/L 09/29/2021 8:47 AM [facility] Potassium 4.0 3.5 - 4.5 mmol/L 09/29/2021 8:47 AM [facility] Chloride 93(L) 98 - 107 mmol/L 09/29/2021 8:47 AM [facility] CO2 32(H) 22 - 29 mmol/L 09/29/2021 8:47 AM [facility] Glucose 95 70 - 115 mg/dL 09/29/2021 8:47 AM [facility] Calcium 9.5 8.4 - 10.2 mg/dL 09/29/2021 8:47 AM [facility] Anion Gap 11 8 - 18 09/29/2021 8:47 AM [facility] BUN/Creatinine Ratio 21 7 - 23 09/29/2021 8:47 AM [facility] Osmolality Calculated 273 270 - 300 mOsm/kg 09/29/2021 8:47 AM [facility] eGFR by CKD-EPI >90 >=90 mL/min/1.7 3 m2 09/29/2021 8:47 AM [facility] Blood BLOOD SPECIMEN / Unknown Lab Venipuncture / Unknown 09/29/2021 8:12 AM T 09/29/2021 8:19 AM [facility] - CHEMISTRY [facility] [address] [place] [address], [facility] [phone] from Last 3 Months or Most Recently Relevant to Health Maintenance Advance Directives * Full Code (Latest Code Status on File) Date Activated Date Inactivated Comments 09/17/2021 3:56 AM 09/29/2021 12:30 PM * Full Code Date Activated Date Inactivated Comments 09/17/2021 1:35 AM 09/17/2021 3:56 AM Care Teams Sawsmith Relationship Specialty Start Date End Date Shannan Dennis MD [address] [place] [address] PCP - General Family Medicine 09/16/21
== END 2024-07-09 14:17 | disposition home or self-care (01) ==
PROVIDERS: PCP Student in an Organized Health Care Education/Training Program; Visit Provider Student in an Organized Health Care Education/Training Program
DX: M85.89 Other specified disorders of bone density and structure, multiple sites (principal); N95.9 Unspecified menopausal and perimenopausal disorder
CPT/HCPCS: 77080

== ENCOUNTER 2024-11-17 12:00 | Outpatient (CLI) | payer MEDICARE, OTHER, SELFPAY ==
--- NOTE | ~2024-11-17 | XR_ITS ---
XR chest 2V 11/17/2024 14:27 Indication: Shortness of breath Procedure: 2 view chest Comparison: Comparison to multiple prior studies sequentially, with oldest reviewed study dated 12/10/2018. Findings: Status post median sternotomy for CABG. Cardiomegaly. Mild interstitial edema. No significant effusion. No pneumothorax. There is a prosthetic heart valve. Impression: 1: Cardiomegaly with mild interstitial edema. Reviewed, dictated and finalized at location A. Impression: 1: Cardiomegaly with mild interstitial edema.
--- NOTE | ~2024-11-17 | NM_ITS ---
EXAMINATION: NM lung vent and perfusion DATE: 11/17/2024 12:49 INDICATION: Other nonspecific abnormal finding of lung field TECHNIQUE: 9.0 mCi xenon-133 by inhalation and 5.489 mCi Tc-99m MAA by intravenous route. Scintigraphic images of the chest were obtained. COMPARISON: Chest radiograph dated 11/17/2024 FINDINGS: There are matched ventilation and perfusion defects at the lateral aspect of the left mid to lower lung and extending across the left lower lung on the posterior scintigrams. No corresponding opacity on the chest radiograph. A central photopenic defect at the mid left lung on the left lateral and LPO projections with peripheral stripe sign potentially related to enlargement of the central pulmonary arteries which can be seen on CT dated 10/01/23 and which can be seen in the setting of pulmonary arterial hypertension. No discrete ventilation and perfusion mismatch or other perfusion defects identified. IMPRESSION: 1. Low probability for pulmonary embolism. Reviewed, dictated and finalized at location A.
--- OUTSIDE RECORDS SUMMARY | 2024-11-17 12:17 | XMS_ITS ---
Author Name Auto Generated, Auto Generated Organization [facility] Serv ices Address [address] [place] [address] Phone [phone] Care Team Providers Care Bilingual Spanish Inbound Sales Name Role Phone Leonel Suarez Marcin Unavailable Ovidio Moreno Unavailable Functional Status No Results Mental Status No Results Allergies and Intolerances Name Onset Date Reaction Severity morphine (Allergy) SatSep 29 13:53:00 EDT 2021 lisinopril (Allergy) SatSep 29 13:52:00 EDT 202 Medications Medication Directions Start Date End Date [...] Daily DX: OVERACTIVE BLADDER SatOct 12 01:00:00 EDT 2021Oct 25 01:00:00 EDT 2021 citalopram 20 mg tablet 1 tablet TABLET Oral 1 Time Daily SatOct 12 01:00:00 ED2021Oct 25 01:00:00 EDT 2021 metoprolol succinate ER 50 mg tablet,extended release 24 hr 1 TAB TABLET, EXTENDED RELEASE 24 HR Oral 1 Time Daily DX: HYPERTENSION SatOct 11 16:24:00 2021Oct 25 01:00:00 EDT 2021 calcium carbonate 600 mg-vitamin D3 10 mcg (400 unit) tablet 2 tablets TABLET Oral 1 Time Daily Supplement SatOct 12 01:00:00 EDT 2021Oct 25 01:00:00 EDT 2021 calcium carbonate 600 mg-vitamin D3 10 mcg (400 unit) tablet 2 tablets TABLET Oral 1 Time Daily Supplement SatOct 10 16:00:00 EDT 2021Oct 11 16:25:00 EDT 2021 Pedro-Gest Antacid 200 mg calcium (500 mg) chewable tablet 1 tablet TABLET,CHEWABLE Oral PRN Every 1 Hour dx indigestionPatient may keep tums at bedside SatOct 09 17:00:00 EDT 2021Oct 25 01:00:00 EDT 2021 Richard Therapeutic Nutrition Supplement 1 packet Oral 1 Time Daily to enhance healing. SatOct 05 06:35:00 T 2021Oct 12 15:12:00 2021 citalopram 20 mg tablet 1 tablet TABLET Oral 1 Time Daily SatOct 04 13:00:00 ED2021Oct 11 16:23:00 T 2021 zolpidem 10 mg tablet 1 TAB TABLET Oral PRN Hour Of Sleep for 90 Days DX: INSOMNIA SatOct 04 13:00:00 EDT 2021Oct 25 01:00:00 EDT 2021 Richard Therapeutic Nutrition Supplement 1 packet Oral 1 Time Daily to enhance healing. SatOct 04 15:54:00 T 2021Oct 05 06:36:00 T 2021 TUBErsoL 5 tub. unit/0.1 mL intradermal injection solution Read Results VIAL (ML) Other 1 Time Weekly for 2 Weeks Read results between 48-72 hours after 1st and 2nd (1 week apart). If positive do chest x-ray. SatOct 03 09:00:00 2021Oct 17 08:59:00 EDT 2021 acetaminophen 500 mg tablet 1000mg TABLET Oral PRN Every 6 Hours SatOct 03 13:00:00 ED2021Oct 25 01:00:00 EDT 2021 oxyCODONE 5 mg tablet 1/2 tablet-1 table t TABLET Oral PRN Every 4 Hours Pain SatOct 03 13:00:00 EDT 2021Oct 25 01:00:00 EDT 2021 nystatin 100,000 unit/gram topical powder 1 application POWDER (GRAM) Topical 2 Times Daily Apply nystatin powder to kadeem-area BID until healed SatOct 03 13:00:00 2021Oct 25 01:00:00 EDT 2021 TUBErsoL 5 tub. unit/0.1 mL intradermal injection solution 0.1 ml VIAL (ML) Intradermal 1 Time Weekly for 2 Weeks 1st injection on admission, then one week after. Read between 48 and 72 hours Sat Sep 30 09:00:00 EDT 2021Oct 14 08:59:00 EDT 2021 acetaminophen 500 mg tablet 2 tabs TABLET Oral Every 8 Hours As needed for pain/elevated temperature pain, no not exceed 4000 mg/ 24 hrs SatSep 30 01:00:00 EDT 2021Oct 03 13:42:00 EDT 2021 methocarbamoL 500 mg tablet 1 TAB TABLET Oral 3 Times Daily DX: MUSCLE SPASMS Sat Sep 30 09:00:00 EDT 2021Oct 25 01:00:00 EDT 2021 acetaminophen 500 mg tablet 2 TAB TABLET Oral Every 8 Hours 2 [id number]: PAIN*DO NOT EXCEED 3GM/DAY APAP FROM ALL SOURCES* SatSep 29 15:00:00 EDT 2021Sep 29 17:25:00 EDT 2021 bisacodyL 10 mg rectal suppository 1 SUPPOSITORY SUPPOSITORY, RECTAL Rectal PRN 1 Time Daily DX: CONSTIPATION SatSep 29 01:00:00 EDT 2021Oct 25 01:00:00 ED2021 FeroSuL 325 mg (65 mg iron) tablet 1 TAB TABLET Oral 1 Time Daily WITH LUNCHDX: ANEMIA Sat Sep 30 09:00:00 EDT 2021Oct 25 01:00:00 EDT 2021 magnesium 400 mg (as magnesium oxide) tablet 1 TAB TABLET Oral 2 Times Daily DX: SUPPLEMENT Sat Sep 30 09:00:00 EDT 2021Oct 25 01:00:00 EDT [...] DX: COUGH / CONGESTION SatSep 30 09:00:00 EDT 2021Oct 25 01:00:00 EDT 2021 losartan 50 mg [...] 2021 * End Date: * 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
--- OUTSIDE RECORDS SUMMARY | 2024-11-17 12:17 | XMS_ITS ---
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
--- OUTSIDE RECORDS SUMMARY | 2024-11-17 12:18 | XMS_ITS | Clinical Summary ---
Author Organization [facility] Address [address], [facility] [address] [place] [address] Phone Care Team Providers Care Landscape Management Technician Name Role Phone Shannan Dennis MD Primary Care Provider [phone] Holly Leong APRN, DISTRICT MANAGER Unavailable Allergies Active Allergy Reactions Criticality [...] Comments Blood Pressure 140/90 05/15/2016 11:12 AM HIGH SCHOOL PROFESSIONAL Pulse 68 05/15/2016 11:12 AM HIGH SCHOOL PROFESSIONAL Temperature 36.7 C (98.1 F) 05/15/2016 11:12 AM HIGH SCHOOL PROFESSIONAL Respiratory Rate 16 05/15/2016 11:12 AM HIGH SCHOOL PROFESSIONAL Oxygen Saturation 97% 05/15/2016 11:12 AM HIGH SCHOOL PROFESSIONAL Inhaled Oxygen Concentration - - Weight 83.9 kg (185 lb) 06/25/2016 3:00 PM CDT Height 157.5 cm (5' 2) 06/25/2016 3:00 PM CDT Body Mass Index 33.84 06/25/2016 3:00 PM CDT Plan of Treatment Health Maintenance Due Date Last Done Comments Hepatitis C Virus (HCV) Screening 1950 TdaP Immunization 1950 Cologuard 12/25/1996 Colonoscopy 12/25/1996 Colorectal Cancer Screening 12/25/1996 Immunochemical Fecal Occult Blood 12/25/1996 Pneumococcal Immunization (50+ years) (1 of 1 - PCV) 12/25/2001 Zoster Immunization (2 of 3) 05/07/2013 03/12/2013 SARS-COV-2 Immunization ( season) 2023 03/19/2021, 06/16/2020, 05/27/2020 Influenza Immunization (#1) 11/30/202412/30, 12/14/2016, 01/18/2016, Additional history exists Respiratory Syncytial Virus (RSV) Immunization (Adult) (1 - 1-dose 75+ series) 12/25/2026 Hepatitis B Immunization Aged Out No longer eligible based on patient's age to complete this topic Human Papillomavirus (HPV) Immunization Aged Out No longer eligible based on patient's age to complete this topic Meningococcal Immunization (ACWY) Aged Out No longer eligible based on patient's age to complete this topic Rotavirus Immunization Aged Out No lo nger eligible based on patient's age to complete this topic Insurance [facility] MEDICARE [facility] SHARED human resources hr representative Care Teams Landscape Management Technician Relationship Specialty [place] [address] [place] [address] PCP - General Family Medicine 01/25/16 Holly Leong, EDUCATION PROGRAM MANAGER, DISTRICT MANAGER [address] [place] [address] Nurse Practitioner Advanced Practice Nurse 01/25/16
--- OUTSIDE RECORDS SUMMARY | 2024-11-17 12:18 | XMS_ITS | Encounter Summary ---
Author Organization [facility] Healthcare Address [address] [place] [address] Care Team Providers Care Reflector Driller And Deburrer Name Role Phone Shannan Dennis MD Primary Care Provider [phone] Nacho Pina MD Unavailable [phone] Ovidio Villagran MD Unavailable [phone] Encounter Details Date Type Department Care Team (Late st Contact Info) Description 11/22/2017 [place] Only [facility] [place] [address] [place] [address] Scanning, Provider Social History Tobacco Use Types Packs/Day Years Used Date Smoking Tobacco: Never Smokeless Tobacco: Never Alcohol Use Standard Drinks/Week Comments Yes 14 (1 standard drink = 0.6 oz pu re alcohol) Comments Unknown Sex and Gender Information Value Date Recorded Sex Assigned at Not on file Legal Sex Female 10:24 AM DIRECTOR OF CLINICAL SERVICES Gender Identity Not on file Sexual Orientation Not on file documented as of this encounter Plan of Treatment Not on file documented as of this encounter Procedures Procedure Name Priority Date/Time Associated Diagnosis Comments SCAN - LABS 11/22/2017 documented in this encounter Results * SCAN - LABS (11/22/2017) us Provider Scanning Final Result documented in this encounter Visit Diagnoses Not on filedocumented in this encounter Care Teams Reflector Driller And Deburrer Relationship Specialty Start Date End Date Shannan Dennis MD PCP - General 06/29/16 Nacho Pina MD [address] [facility] [address] [facility] [place] [address] Integration Specialist Cardiology 04/07/24 Ovidio Villagran MD [address] [place] [address] Dermatology Sales Representative Critical Care Med 04/07/24 documented as of this encounter
--- OUTSIDE RECORDS SUMMARY | 2024-11-17 12:18 | XMS_ITS | Encounter Summary ---
Author Organization [facility] Healthcare Address [address] [place] [address] Care Team Providers Care Senior Computer Specialist Name Role Phone Shannan Dennis MD Primary Care Provider [phone] Nacho Pina MD Unavailable [phone] Ovidio Villagran MD Unavailable [phone] Encounter Details Date Type Department Care Team (Late st Contact Info) Description 08/04/2024 Orders Only [facility] [place] Health Information Management [address] [place] [address] Scanning, Provider Social History Tobacco Use Types [...] on file Legal Sex Female 10:24 AM UNDERWRITING INTERN Gender Identity Not on file Sexual Orientation [...] as needed documented as of this encounter Procedures Procedure Name Priority Date/Time Associated Diagnosis Comments SCAN - LABS 08/04/2024 documented in this encounter Results * SCAN - LABS (08/04/2024) us Provider Scanning Final Result documented in this encounter Visit Diagnoses Not on filedocumented in this encounter Care Teams Senior Computer Specialist Relationship Specialty Start Date End Date Shannan Dennis MD PCP - General 06/29/16 Nacho Pina MD [address] [facility] [address] [place] [address] General Cargo Clerk Cardiology 04/07/24 Ovidio Villagran MD [address] [place] [address] Chief Maintenance Supervisor Critical Care Med 04/07/24 documented as of this encounter
--- OUTSIDE RECORDS SUMMARY | 2024-11-17 12:18 | XMS_ITS | Encounter Summary ---
Author Organization [facility] Healthcare Address [address] [place] [address] Care Team Providers Care Formula Clerk Name Role Phone Shannan Dennis MD Primary Care Provider [phone] Nacho Pina MD Unavailable [phone] Ovidio Villagran MD Unavailable [phone] Encounter Details Date Type Department Care Team (Late st Contact Info) Description 11/28/2017 [place] Only [facility] [place] [address] [place] [address] Scanning, Provider Social History Tobacco Use Types Packs/Day Years Used Date Smoking Tobacco: Never Smokeless Tobacco: Never Alcohol Use Standard Drinks/Week Comments Yes 14 (1 standard drink = 0.6 oz pu re alcohol) Comments Unknown Sex and Gender Information Value Date Recorded Sex Assigned at Not on file Legal Sex Female 10:24 AM SOLAR ENERGY CONSULTANT AND DESIGNER Gender Identity Not on file Sexual Orientation Not on file documented as of this encounter Plan of Treatment Not on file documented as of this encounter Procedures Procedure Name Priority Date/Time Associated Diagnosis Comments CARDIOLOGY DOCUMENT SCAN 11/28/2017 documented in this encounter Results * Cardiology Document Scan (11/28/2017) Anatomical Region Laterality Modality Other us Provider Scanning CV CARDIAC SERVICES PROCEDURES Final Result documented in this encounter Visit Diagnoses Not on filedocumented in this encounter Care Teams Formula Clerk Relationship Specialty Start Date End Date Shannan Dennis MD PCP - General 06/29/16 Nacho Pina MD [address] [facility] [address] [facility] [place] [address] Staining Machine Operator Cardiology 04/07/24 Ovidio Villagran MD [address] [place] [address] Game Design Instructor Critical Care Med 04/07/24 documented as of this encounter
--- OUTSIDE RECORDS SUMMARY | 2024-11-17 12:18 | XMS_ITS | Clinical Summary ---
Author Organization [facility] [address] Address [address] [place] [address] Care Team Providers Care Chief Operations Officer Name Role Phone Shannan Dennis MD Primary Care Provider [phone] Nacho Pina MD Unavailable Ovidio Villagran MD Unavailable [phone] Allergies Active Allergy Reactions Criticality Noted Date [...] 40 mg tabletIndication s:Vasomotor Symptoms associated with Menopause,Mood Take 1 tablet (40 mg total) by mouth every morning 0 Active LACTOBACILLUS ACIDOPHILUS ORAL Take 1 capsule by mouth teacher early childhood development before breakfast 0 Active metoprolol XL (TOPROL-XL) 50 mg extended release tabletIndication s:Atrial Arrhythmia Take 1 tablet (50 mg total) by mouth teacher early childhood development before breakfast 0 Active ergocalciferol (VITAMIN D) 50,000 unit capsule 1 Active potassium chloride ER (KLOR-CON) 20 mEq CR tabletIndication s:Due to Lasix Take 1 tablet (20 mEq total) by mouth nightly 0 Active zinc 50 mg tabletIndication s:Supplement Take 1 tablet by mouth every evening 0 Active zolpidem (AMBIEN) 10 mg tabletIndication s:Sleep-Onset Insomnia Take 0.5 tablets (5 mg total) by mouth nightly as needed for sleep 0 Active azelastine (ASTELIN) 137 mcg (0.1 %) nasal spray USE 1 SPRAY IN EACH NOSTRIL EVERY 12 HOURS 3 Active methocarbamoL (ROBAXIN) 500 mg tablet Take 1 tablet (500 mg total) by mouth 3 (three) times a day 90 tablet 1 3 Active losartan (COZAAR) 50 mg tablet TAKE 1 TABLET BY MOUTH EVERY DAY 90 tablet 2 4 Active Additional Information Patient taking differently: 50 mg oral Daily (early AM), Indications: hypertension, Informant: Self, Reported on 11/05/2024 albuterol HFA (PROVENTIL HFA,VENTOLIN HFA,PROAIR HFA) 90 mcg/actuation inhalerIndicatio ns:SOB Inhale 2 puffs every 4 (four) hours as needed for wheezing or shortness of breath 4 Active oxyBUTYnin XL (DITROPAN-XL) 10 mg 24 hr tabletIndication s:Bladder Hyperactivity,Ur inary Urge Incontinence,Uri nary Urgency Take 1 tablet (10 mg total) by mouth teacher early childhood development before breakfast 5 Active magnesium glycinate 100 mg tabletIndication s:Supplement Take 1,000 mg by mouth nightly Active cetirizine-pseud oephedrine ER (ZyrTEC-D) 5-120 mg per 12 hr tabletIndication s:Nasal Congestion Take 1 tablet by mouth 2 (two) times a day as needed for allergies (Congestion) Active turmeric root extract 500 mg capsuleIndicatio ns:Supplement Take 1 tablet/chew tab by mouth teacher early childhood development before breakfast Active UNABLE TO FINDIndications: Supplement Take by mouth teacher early childhood development before breakfast Med Name: Beet Active collagen, hydrolysate, bovine, (collagen, hydr, bovine,, bulk,) 100 % powderIndication s:Supplement Take 1 packet by mouth teacher early childhood development before breakfast Active celecoxib (CeleBREX) 100 mg capsuleIndicatio ns:Postoperative Acute Pain Take 1 capsule (100 mg total) by mouth 2 (two) times a day for 14 days 28 capsule 5 Active docusate sodium (COLACE) 100 mg capsuleIndicatio ns:constipation Take 1 capsule (100 mg total) by mouth 2 (two) times a day 60 capsule 5 Active acetaminophen (TYLENOL) 500 mg tabletIndication s:Pain Take 2 tablets (1,000 mg total) by mouth every 6 (six) hours 120 tablet 5 Active traMADoL (ULTRAM) 50 mg tablet Take 1 tablet (50 mg total) by mouth every 6 (six) hours as needed for pain 30 tablet 5 Active furosemide (LASIX) 40 mg tabletIndication s:Peripheral Edema due to Chronic Heart Failure Take 1 tablet (40 mg total) by mouth teacher early childhood development before breakfast 90 tablet 1 5 Active rivaroxaban (Xarelto) 20 mg tabletIndication s:atrial fibrillation Take 1 tablet (20 mg total) by mouth teacher early childhood development before breakfast 90 tablet 1 5 Active Active Problems Problem Noted Date Diagnosed [...] (11/03/2019): Added automatically from request for surgery [id number] Encounters Date Type Department Care Team Description 11/05/2024 1:30 PM CDT Office Visit [facility] Cardiology [address] [place] [address] Nacho Pina MD Hyperlipidemia LDL goal <100 (Primary Dx); Status post mitral valve repair; PAF (paroxysmal atrial fibrillation); Essential hypertension; Cardiomyopathy, nonischemic (HCC) 09/30/2024 Telephone [facility] Cardiology [address] [place] [address] Nacho Pina MD 09/28/2024 1:00 PM CDT Office Visit [facility] Orthopaedic Surgery [address] [facility] 12th [place] [address] [place] [address] Sharyn Garcia MD Status post reverse arthroplasty of left shoulder (Primary Dx) 09/28/2024 12:45 PM CDT - 09/28/2024 11:59 PM CDT Hospital Encounter [facility] [address] [place] [address] Status post reverse arthroplasty of left shoulder Discharge Disposition: Discharge to home or self care from Last 3 Months Surgical History Surgery [...] on file Legal Sex Female 10:24 AM JUNIOR ACCOUNTANT Gender Identity Not on file Sexual Orientation Not on file Obstetrics History Last Filed Vital Signs Vital Sign Reading Time Taken Comments Blood Pressure 102/70 11/05/2024 1:46 PM CDT Pulse 62 11/05/2024 1:46 PM CDT Temperature 36.4 C (97.5 F) 05/09/2024 4:39 AM JUNIOR ACCOUNTANT Respiratory Rate 18 05/09/2024 4:39 AM JUNIOR ACCOUNTANT Oxygen Saturation 94% 11/05/2024 1:46 PM CDT Inhaled Oxygen Concentration - - Weight 69.9 kg (154 lb) 11/05/2024 1:46 PM CDT Height 157.5 cm (5' 2) 11/05/2024 1:46 PM CDT Body Mass Index 28.17 11/05/2024 1:46 PM CDT Plan of Treatment Health Maintenance [...] Zoster Vaccine (2 of 3) 05/07/2013 03/12/2013 Well Visit 65+ 12/25/2016 Breast Cancer Screening-Mammogram 07/30/2017 07/30/2016, 07/30/2016, 03/16/2015, Additional history exists Hemoglobin A1C 05/13/2020 11/11/2019 Covid-19 Vaccine (3 - 2023-2 5 season) 2023 06/16/2020, 05/27/2020 Influenza Vaccine (#1) 2024 7, 01/18/2016, 12/31/2015 Fall Risk Assessment 05/09/2025 05/09/2024 eGFR 05/09/2025 05/09/2024, 04/02, 11/17/2019, Additional history exists Lipid Panel 11/05/2025 11/05/2024, 08/30, 03/22/2023, Additional history exists Goals Goal Patient Goal Type Associated Problems Recent Progress Patient-Stated? Author CCM Chronic Pain Care Plan Chronic Care Management Improving( 1:46 PM CDT) Lacy Pugh RN Note: Problem: Chronic Pain Goals: 1. Minimize further functional decline 2. Maximize quality of life 3. Control pain Strategies: - Activity/exercise program recommendation - Conservative stepwise pain medicine strategy with multi-disciplinary approach - Recommend healthy lifestyle strategies and compensatory methods as needed Medical Devices Implanted Type Area Social Media Sr Strategy Manager Device Identifier Shelf Expiration Date Model / Serial / Lot [employer] [id number] Muriel-Michaelwa rds Physio Ii 36mm Joy Mitral Ring Annuloplasty - [id number] - [id number] Implanted:Qty: 1 on 11/11/2019 by Ovidio Bryant MD at [facility] Other - see comments N/A: Mitral Valve [employer] 07/12/2024 [id number] / [id number] / Description:Annuloplasty Rin g [employer] Aequalis Perform Od25 Mm Augment 35 D Half Wedge Baseplate Glenoid [id number] - [id number] Implanted:Qty: 1 on 05/08/2024 by Sharyn Garcia MD at [facility] Left: Shoulder [employer] [id number] / / [employer] Aequalis Perform Reversed Od6.5 Mm L30 Mm Central Glenoid Screw Baseplate Nonsterile [id number] - [id number] Implanted:Qty: 1 on 05/08/2024 by Sharyn Garcia MD at [facility] Left: Shoulder [employer] [id number] / / [employer] Aequalis Perform Reversed 5mm 18mm Peripheral Glenoid Screw [id number] - [id number] Implanted:Qty: 2 on 05/08/2024 by Sharyn Garcia MD at [facility] Left: Shoulder [employer] [id number] / / [employer] Screw Glenoid Locking Reverse Aequalis Perform 5.0x22mm Titanium [id number] - [id number] Implanted:Qty: 1 on 05/08/2024 by Sharyn Garcia MD at [facility] Left: Shoulder [employer] [id number] / / [employer] Glenosphere Cannulated Reversed Standard [place] Chromium Tornier Perform 36mm [id number] - [id number] - [id number] Implanted:Qty: 1 on 05/08/2024 by Sharyn Garcia MD at [facility] Left: Shoulder [employer] [id number] 06/04/2028 [id number] / [id number] / [employer] Stem Humeral Shoulder Reverse Aequalis Perform [id number] - [id number] Implanted:Qty: 1 on 05/08/2024 by Sharyn Garcia MD at [facility] Left: Shoulder [employer] [id number] / / [employer] Insert Humeral 10 Degree Reverse Size 1/2 +0 Perform 36mm Combination [id number] - [id number] Implanted:Qty: 1 on 05/08/2024 by Sharyn Garcia MD at [facility] Left: Shoulder [employer] [id number] / / Procedures Procedure Name Priority Date/Time Associated Diagnosis Comments POCT LIPID PANEL Routine 11/05/2024 1:46 PM CDT Hyperlipidemia LDL goal <100 XR SHOULDER LEFT 2 OR MORE VIEWS Schedule Routine, Read Routine (OP Routine) 09/28/2024 1:46 PM CDT Status post reverse arthroplasty of left shoulder EGFR Timed 05/09/2024 6:07 AM JUNIOR ACCOUNTANT HEMOGLOBIN A1C STAT 11/11/2019 6:17 AM CDT from Last 3 Months or Most Recently Relevant to Health Maintenance Results * POCT lipid panel (11/05/2024 1:46 PM CDT) Cholesterol, POC 177 <200 MG/DL HDL, POC 80 >=40 mg/dL Triglycerides, POC 85 <=149 mg/dL LDL Cholesterol POC 80 <=129 mg/dL Chol/HDL Ratio, POC 1.0 NONE Non-HDL Cholesterol, POC 97 NONE mg/dL Cholesterol Total, POC 177 30 - 199 mg/dL Capillary blood 11/05/2024 1 :46 PM CDT us Nacho Pina MD POINT OF CARE TEST ORDERA BLES Final Result * XR Shoulder Left 2 or More Views (09/28/2024 1:46 PM CDT) Anatomical Region Laterality Modality Upper Extremities, Shoulder Left Comp uted Radiography 09/28/2024 2:02 PM CDT Impressions 09/28/2024 2:15 PM CDT Left reverse total shoulder arthroplasty is in unchanged, near-anatomic alignment. Dictated by: Lamin Devine M.D. The radiology attending physician has personally reviewed this study, and had reviewed and/or edited this written report and agrees with it. Electronically signed by: Dave Campbell D.O. Narrative 09/28/2024 2:15 PM CDT EXAMINATION: XR SHOULDER LEFT 2 OR MORE VIEWS HISTORY: Left reverse shoulder arthroplasty follow-up FINDINGS: 4 radiographs of the left shoulder are submitted with comparison made to prior dated 08/03/2024. Left reverse total shoulder arthroplasty is in unchanged, near-anatomic alignment. Instrumentation is intact. No periprosthetic fracture, osteolysis or component migration. Mild acromioclavicular joint osteoarthritis. Partially imaged median sternotomy wires and mitral valve replacement. Aortic calcifications. Procedure Note Dave Campbell, DO - 09/28/2024 EXAMINATION: XR SHOULDER LEFT 2 OR MORE VIEWS HISTORY: Left reverse shoulder arthroplasty follow-up FINDINGS: 4 radiographs of the left shoulder are submitted with comparison made to prior dated 08/03/2024. Left reverse total shoulder arthroplasty is in unchanged, near-anatomic alignment. Instrumentation is intact. No periprosthetic fracture, osteolysis or component migration. Mild acromioclavicular joint osteoarthritis. Partially imaged median sternotomy wires and mitral valve replacement. Aortic calcifications. IMPRESSION: Left reverse total shoulder arthroplasty is in unchanged, near-anatomic alignment. Dictated by: Lamin Devine M.D. The radiology attending physician has personally reviewed this study, and had reviewed and/or edited this written report and agrees with it. Electronically signed by: Dave Campbell D.O. us Sharyn Garcia MD IMG XR PROCEDURES Fin al Result * eGFR (05/09/2024 6:07 AM JUNIOR ACCOUNTANT) eGFR >90 >=60 mL/min/1. 73 m2 Comment: [...] last reviewed 2021. Blood 05/09/2024 6:07 AM JUNIOR ACCOUNTANT 05/09/2024 7:46 AM JUNIOR ACCOUNTANT us Sarmad Duckworth MD LAB BLOOD ORDERABLES Final Result [facility] Department [place] [address] * Hemoglobin A1c (11/11/2019 6:17 AM CDT) Hgb A1C 5.1 4.0 - 5.6 % [facility] Estimated Average Glucose 100 mg/dL [facility] Comment: The ADA recommends reporting an estimated Average Glucose (eAG) with all Hemoglobin A1c results using the equation derived from a study of 507 normal and diabetic adults. Minority populations were underrepresented and children were not included. (Diabetes Care 31:4489-7514, 2008). The eAG is not equivalent to a fasting glucose. Blood specimen (specimen) 11/11/2019 6:17 AM CDT 11/11/2019 6:34 AM CDT us Ovidio Bryant MD LAB BLOOD ORDERABLES Fin al Result [facility] [address] Department [place] [address] from Last 3 Months or Most Recently Relevant to Health Maintenance Insurance MEDICARE [employer] [facility] MCR SUPPLEMENT DARYL MCCLUOD [id number] MEDICARE [facility] FOR LIFE GEHA MCR SUPPLEMENT [facility] MEDICARE [employer] MEDICARE [facility] MCR SUPPLEMENT [facility] Advance Directives For more information, please contact: [phone] * Full Code (Latest Code Status on File) Date Activated Date Inactivated Comments 05/08/2024 7:18 PM 05/09/2024 3:37 PM * Full Code Date Activated Date Inactivated Comments 11/11/2019 1:12 PM 11/17/2019 7:59 PM Care Teams Chief Operations Officer Relationship Specialty Start Date End Date Shannan Dennis MD PCP - General 06/29/16 Nacho Pina MD [address] [place] [address] Paper Stripper Cardiology 04/07/24 Ovidio Villagran MD [address] [place] [address] Rf Engineer Critical Care Med 04/07/24
--- OUTSIDE RECORDS SUMMARY | 2024-11-17 12:19 | XMS_ITS | Encounter Summary ---
Author Organization [facility] Address [address] [place] [address] Care Team Providers Care Insurance Account Specialist Name Role Phone Shannan Dennis MD Primary Care Provider [phone] Encounter Details Date Type Department Care Team (Late st Contact Info) Description 06/06/2021 Lab Requisition [facility] DermPath Lab [address] [facility] [place] [address] Maxi Denise MD [address] [place] [address] Social History Tobacco Use Types Packs/Day Years Used Date Smoking Tobacco: Never Assessed Comments Unknown Sex and Gender Information Value Date Recorded Sex Assigned at Not on file Legal Sex Female 6:22 AM QUALITY INTERN Gender Identity Not on file Sexual Orientation Not on file documented as of this encounter Plan of Treatment Not on file documented as of this encounter Procedures Procedure Name Priority Date/Time Associated Diagnosis Comments DERMATOPATHOLOGY Routine 06/05/2021 12:0 0 AM QUALITY INTERN documented in this encounter Results * DERMATOPATHOLOGY (06/05/2021 12:00 AM QUALITY INTERN) Case Report Dermatopathology Report Case: [id number] Authorizing Provider: Maxi Denise MD Collected: 06/05/2021 12:00 AM Ordering Location: [facility] DermPath Lab Received: 06/06/2021 05:05 PM Pathologist: Ginger Correa MD Specimens: A) - Skin, right posterior shoulder B) - Skin, left sideburn 3:23 PM [facility] DERMATOPATHOLOGY [facility]ORATORY Final Diagnosis Specimen A. 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 SKIN, left sideburn: SEBORRHEIC KERATOSIS, IRRITATED AND INFLAMED (L82.0) 2 3:23 PM [facility] DERMATOPATHOLOGY [facility]ORATORY at [address] [facility] Clinical History A: ISK vs. SCCA Path# [id number] B: ISK vs. SCCA Path# [id number] 2 3:23 PM [facility]ERMATOP[facility] Gross Description Specimen A: Received is one formalin filled container labeled with the patient's name and designated right posterior shoulder. The specimen consists of a shave biopsy measuring [id number]. Jar 0. Specimen B: Received is one formalin filled container labeled with the patient's name and designated left sideburn. The specimen consists of a shave biopsy measuring [id number]. Jar 0. 3:23 PM [facility] DERMATOPATH[facility] Microscopic Description Specimen A. SKIN, right posterior shoulder: The epidermis shows parakeratosis, full thickness disorderly maturation of keratinocytes, mitoses at different levels, and dyskeratotic cells. Specimen B. SKIN, left sideburn: Sections show acanthosis, papillomatosis, hyperkeratosis, and squamous eddies. There is a lymphohistiocytic infiltrate within the papillary dermis. 2 3:23 PM [facility]ERMATOPATH[facility] Disclaimer An external and internal positive and negative controls are appropriate for the histochemical, immunohistochemical and immunofluorescence stain(s) in this case (if any), except where stated explicitly. The performance characteristics of the stain(s) cited in this report were developed and its performance characteristic determined by the Dermatopathology Laboratory at [facility], directed by Dr. Norris Blancas. These tests need not be, and therefore are not, approved by the [place] Food and Drug Administration. The tests are used for clinical purposes. Billing Codes Specimen Charges Stain Charges 77912 55979 1 1 2 3:23 PM [facility]ERMAT[facility] Embedded Images 2 3:23 PM [facility]N DERMATOPATHOLOGY LABORATORY Pathology/Cytology TISSUE SPECIMEN FROM SKIN / Unknown 06/05/2021 06/06/2021 5:05 PM QUALITY INTERN Miscellaneous samples (specimen) TISSUE SPECIMEN FROM SKIN / Unknown 06/05/2021 06/06/2021 5:05 PM QUALITY INTERN us Maxi Denise MD LAB - PATHOLOGY/CYTOLOGY ORDER YOKASTA Final Result DERMATOPATHOLOGY LABORATORY [facility] - Department of Dermatology [facility] Specialized Medicine [address] [place] [address], [address] [phone] documented in this encounter Visit Diagnoses Not on filedocumented in this encounter Care Teams Insurance Account Specialist Relationship Specialty Start Date End Date Shannan Dennis MD [address] [place] [address] PCP - General Family Medicine 09/16/21 documented as of this encounter
--- OUTSIDE RECORDS SUMMARY | 2024-11-17 12:19 | XMS_ITS | Encounter Summary ---
Author Organization [facility] Address [address] [place] [address] Care Team Providers Care Manager Budget Name Role Phone Shannan Dennis MD Primary Care Provider [phone] Shannan Dennis MD Primary Care Provider [phone] Nacho Pina MD Unavailable [phone] Ovidio Villagran MD Unavailable [phone] Encounter Details Date Type Department Care Team (Late st Contact Info) Description 10/21/2012 Orders Only [facility] ProviderKonstantin MD [address] [place] [address] Social History Tobacco Use Types Packs/Day Years Used Date Smoking Tobacco: Never Alcohol Use Standard Drinks/Week Comments Yes 0 (1 standard drink = 0.6 oz pur e alcohol) Comments Unknown Sex and Gender Information Value Date Recorded Sex Assigned at Not on file Legal Sex Female 10:24 AM CREDIT MANAGER Gender Identity Not on file Sexual Orientation [...] filedocumented in this encounter Care Teams Manager Budget Relationship Specialty Start Date End Date Shannan Dennis MD PCP - General 06/29/16 Shannan Dennis MD PCP - General 04/12/09 06/28/16 Nacho Pina MD [address] [facility] [address] [place] [address] Fire Regulator Cardiology 04/07/24 Ovidio Villagran MD [address] [place] [address] Offc Spec Critical Care Med 04/07/24 documented as of this encounter
--- OUTSIDE RECORDS SUMMARY | 2024-11-17 12:19 | XMS_ITS | Encounter Summary ---
Author Organization [facility] Address [address] [place] [address] Care Team Providers Care Machine Farmworker Name Role Phone Shannan Dennis MD Primary Care Provider [phone] Shannan Dennis MD Primary Care Provider [phone] Nacho Pina MD Unavailable [phone] Ovidio Villagran MD Unavailable [phone] Encounter Details Date Type Department Care Team (Late st Contact Info) Description 05/04/2016 Orders Only [facility] ProviderKonstantin MD [address] [place] [address] Social History Tobacco Use Types Packs/Day Years Used Date Smoking Tobacco: Never Alcohol Use Standard Drinks/Week Comments Yes 0 (1 standard drink = 0.6 oz pur e alcohol) Comments Unknown Sex and Gender Information Value Date Recorded Sex Assigned at Not on file Legal Sex Female 10:24 AM CAMPAIGN ANALYST Gender Identity Not on file Sexual Orientation [...] on filedocumented in this encounter Care Teams Machine Farmworker Relationship Specialty Start Date End Date Shannan Dennis MD PCP - General 06/29/16 Shannan Dennis MD PCP - General 04/12/09 06/28/16 Nacho Pina MD [address] [facility] [address] [place] [address] Commissary Assistant Cardiology 04/07/24 Ovidio Villagran MD [address] [place] [address] Civil Manager Critical Care Med 04/07/24 documented as of this encounter
--- OUTSIDE RECORDS SUMMARY | 2024-11-17 12:19 | XMS_ITS | Encounter Summary ---
Author Organization [facility] Address [address] [place] [address] Care Team Providers Care Director Of Archives Name Role Phone Shannan Dennis MD Primary Care Provider [phone] Shannan Dennis MD Primary Care Provider [phone] Nacho Pina MD Unavailable [phone] Ovidio Villagran MD Unavailable [phone] Encounter Details Date Type Department Care Team (Late st Contact Info) Description 03/27/2016 Orders Only [facility] ProviderKonstantin MD [address] [place] [address] Social History Tobacco Use Types Packs/Day Years Used Date Smoking Tobacco: Never Alcohol Use Standard Drinks/Week Comments Yes 0 (1 standard drink = 0.6 oz pur e alcohol) Comments Unknown Sex and Gender Information Value Date Recorded Sex Assigned at Not on file Legal Sex Female 10:24 AM PROCESS DEVELOPER Gender Identity Not on file Sexual [...] on filedocumented in this encounter Care Teams Director Of Archives Relationship Specialty Start Date End Date Shannan Dennis MD PCP - General 06/29/16 Shannan Dennis MD PCP - General 04/12/09 06/28/16 Nacho Pina MD [address] [facility] [address] [place] [address] Machine Heel Sprayer Cardiology 04/07/24 Ovidio Villagran MD [address] [place] [address] Sewer Maintenance Supervisor Critical Care Med 04/07/24 documented as of this encounter
--- OUTSIDE RECORDS SUMMARY | 2024-11-17 12:19 | XMS_ITS | Encounter Summary ---
Author Organization [facility] Address [address] [place] [address] Care Team Providers Care Energy Conservation Representative Name Role Phone Shannan Dennis MD Primary Care Provider [phone] Shannan Dennis MD Primary Care Provider [phone] Nacho Pina MD Unavailable [phone] Ovidio Villagran MD Unavailable [phone] Encounter Details Date Type Department Care Team (Late st Contact Info) Description 05/11/2016 Orders Only [facility] ProviderKonstantin MD [address] [place] [id number] Social History Tobacco Use Types Packs/Day Years Used Date Smoking Tobacco: Never Alcohol Use Standard Drinks/Week Comments Yes 0 (1 standard drink = 0.6 oz pur e alcohol) Comments Unknown Sex and Gender Information Value Date Recorded Sex Assigned at Not on file Legal Sex Female 10:24 AM SMALL ARMS REPAIRER Gender Identity Not on file Sexual Orientation [...] on filedocumented in this encounter Care Teams Energy Conservation Representative Relationship Specialty Start Date End Date Shannan Dennis MD PCP - General 06/29/16 Shannan Dennis MD PCP - General 04/12/09 06/28/16 Nacho Pina MD [address] [facility] [address] [place] [address] Section Cutter Cardiology 04/07/24 Ovidio Villagran MD [address] [place] [address] Beauty Therapist Critical Care Med 04/07/24 documented as of this encounter
--- OUTSIDE RECORDS SUMMARY | 2024-11-17 12:19 | XMS_ITS | Clinical Summary ---
[facility] [place] Address [address] [place] [address] Phone Care Team Providers Care Frame Polisher Name Role Phone Shannan Dennis MD Primary Care Provider [phone] Allergies Active Allergy Reactions Criticality Noted Date [...] Dennis MD Referring Provider: Shannan Dennis MD [address] [place] [address] Other: Problem Noted Date Diagnosed Date Family [...] on file Legal Sex Female 5:41 AM SHALE MINER BLASTING Gender Identity Not on file Sexual Orientation Not on file Occupation Industry Job Start Date Job End Date Not on file Not on file Not on file Not on file Last Filed Vital Signs Vital Sign Reading Time Taken Comments Blood Pressure 118/60 05/19/2018 4:45 PM SHALE MINER BLASTING Pulse 92 07/30/2016 2:32 PM CDT Temperature - - Respiratory Rate - - Oxygen Saturation - - Inhaled Oxygen Concentration - - Weight 78 kg (172 lb) 05/19/2018 4:45 PM SHALE MINER BLASTING Height 157.5 cm (5' 2) 05/19/2018 4:45 PM SHALE MINER BLASTING Body Mass Index 31.46 05/19/2018 4:45 PM SHALE MINER BLASTING Plan of Treatment Health Maintenance Due Date [...] 02/10/2014, Additional history exists INFLUENZA VACCINE (#1) 2024 0, 12/14/2016, 01/18/2016, Additional history exists RSV [...] MEDICARE PART A AND B FOR LIFE [email or web address] PPO Care Teams Frame Polisher Relationship Specialty Start Date End Date Shannan Dennis MD [address] [place] [id number] PCP - General 04/28/08
--- OUTSIDE RECORDS SUMMARY | 2024-11-17 12:19 | XMS_ITS | Clinical Summary ---
Author Organization [facility] Address [address] [place] [address] Care Team Providers Care Club Licensee Name Role Phone Shannan Dennis MD Primary Care Provider [phone] Source Comments [facility] Affiliates and Associated Physician Practices is amultiple site organization consisting of ambulatory clinics and hospital sitesin [place] and [place]. This disclosure is being madepursuant to the Care Everywhere program and may not contain all information available regarding this patient. Last updated 17.[facility] Allergies Active Allergy Reactions Criticality Noted Date Comments Lisinopril Other 09/17/2021 cough Morphine Itching 09/17/2021 Medications * Be aware that medications may not be up to date on this document. Alwaysverify current medications with the patient. oxybutynin CR 24hr (DITROPAN-XL) 5 MG tablet [...] 4 Grams (4000 mg) / 24 hours. 2 Active ferrous sulfate 325 (65 FE) MG tablet Take 1 (one) tablet by mouth daily with lunch 2 Active bisacodyl (DULCOLAX) 10 MG suppository Insert 1 (one) suppository into the rectum once daily as needed for Constipation 2 Active senna-docusate (SENOKOT-S) 8.6-50 MG tablet Take 1 (one) tablet by mouth once daily 2 Active magnesium oxide (MAG-OX) 400 MG tablet Take 1 (one) tablet by mouth 2 times daily 2 Active multivitamin daily tablet Take 1 (one) tablet by mouth once daily 2 Active vitamin D, ergocalciferol, (DRISDOL) 1.25 MG (81276 UT) capsule Take 1 (one) capsule by mouth every 7 days 2 Active Active Problems Problem Noted Date Diagnosed Date Closed fracture of left tibial plateau 2 Vitamin D deficiency 09/19/2021 Tibial plateau fracture [...] Date Resolved Date Fall 09/17/2021 09/28/2021 Immunizations Immunization Administration Dates Next Due FLU VACCINE TRI [...] money to get more. Never true 09/18/2021 Comments No Sex and Gender Information Value Date Recorded Sex Assigned at Not on file Legal Sex Female 6:22 AM STRIKE OPERATIONS OFFICER Gender Identity Not on file Sexual Orientation [...] 12:22 PM CDT Height 157.5 cm (5' 2) 12/12/2021 1:29 PM CDT Body Mass Index 32.92 12/12/2021 1:29 PM CDT Plan of Treatment Health Maintenance Due Date Last Done Comments BONE DENSITY TESTING 1950 COLOGUARD (AGES 45-75) - COLON CA SCREENING 1950 CT COLONOGRAPHY - COLON CA SCREENING [...] - URINE PROTEIN SCREENING 04/01/2024 INFLUENZA VACCINE (#1) 2024 , 12/14/2016, 01/18/2016, Additional history exists Respiratory Syncytial Virus (RSV) Vaccine Pt: or over 60 yrs (1 - 1-dose 75+ series) 12/25/2026 COLON MONITORING 04/12/2031 04/12/2021 COLONOSCOPY - COLON CA SCREENING 04/12/2031 04/12/2021 [...] this topic Medical Devices Implanted Type Area Carton Forming Machine Adjuster Device Identifier Shelf Expiration Date Model / Serial / Lot Screw 3.5mm 60mm T15 Lck Slf-Tap Tip Tpr Implanted:Qty: 1 on 09/25/2021 by Mauricio Jones DO at [facility] Left: Leg [employer] [id number] / / Screw 3.5mm 65mm T15 Lck Slf-Tap Tip Tpr Implanted:Qty: 2 on 09/25/2021 by Mauricio Jones DO at [facility] Left: Leg [employer] [id number] / / Screw 3.5mm 70mm T15 Lck Slf-Tap Tip Tpr Implanted:Qty: 2 on 09/25/2021 by Mauricio Jones DO at [facility] Left: Leg [employer] [id number] / / Screw 3.5mm 34mm Ft Nonlock Hex Drv Elb Implanted:Qty: 1 on 09/25/2021 by Mauricio Jones DO at [facility] Left: Leg [employer] [id number] / / Screw 3.5mm 42mm Ft Slf-Tap Hex Lopro Implanted:Qty: 1 on 09/25/2021 by Mauricio Jones DO at [facility] Left: Leg [employer] [id number] / / Screw 3.5mm 40mm Ft Slf-Tap Hex Lopro Implanted:Qty: 2 on 09/25/2021 by Mauricio Jones DO at [facility] Left: Leg [employer] [id number] / / Plate 7 Hl Lck Lopro Dist Blt Tip Tib Lt Implanted:Qty: 1 on 09/25/2021 by Mauricio Jones DO at [facility] Left: Leg [employer] [id number] / / Screw 3.5mm 65mm 2.2mm Mldir Lck Sq Drv Implanted:Qty: 2 on 09/25/2021 by Mauricio Jones DO at [facility] Left: Leg [employer] [id number] / / Screw 3.5mm 60mm 2.2mm Mldir Lck Sq Drv Implanted:Qty: 1 on 09/25/2021 by Mauricio Jones DO at [facility] Left: Leg [employer] [id number] / / Screw 3.5mm 55mm T15 Lck Lopro Slf-Tap Implanted:Qty: 1 on 09/25/2021 by Mauricio Jones DO at [facility] Left: [employer] [id number] / / Explanted Type Area Carton Forming Machine Adjuster Device Identifier Shelf Expiration Date Model / Serial / Lot Pin Hlf 17.5cm 5mm Jtx Ss 30mm Extfix Implanted:Qty: 2 on 09/17/2021 by Mauricio Jones DO at [facility] Explanted:Qty: 2 on 09/25/2021 by Mauricio Jones, DO at [facility] Pin Left: Leg [employer] [id number] / / Screw 3.5mm 38mm Ft Slf-Tap Hex Lopro Explanted:Qty: 1 on 09/25/2021 by Mauricio Jones, DO at [facility] Left: Leg [employer] [id number] / / Wire K 1.6mm 6in Hlf Bynt Pnt Ss Fx Explanted:Qty: 2 on 09/25/2021 at [facility] Left: Leg [employer] [id number] / / Pin Hlf 35mm 5mm Jtx Lng Ti Ntrd Extfix Implanted:Qty: 2 on 09/17/2021 by Mauricio Jones, DO at [facility] Explanted:Qty: 2 on 09/25/2021 by Mauricio Jones, DO at [facility] Left: Leg [employer] [id number] / / Screw 3.5mm 75mm T15 Lck Slf-Tap Tip Tpr Explanted:Qty: 1 on 09/25/2021 by Mauricio Jones DO at [facility] Left: Leg [employer] [id number] / / Wire K 2mm 152mm Top Tray Ss Fx Explanted:Qty: 3 on 09/25/2021 by Mauricio Jones DO at [facility] Left: Leg [employer] [id number] / / Screw 3.5mm 80mm Sq Drv Nonlock Lopro Explanted:Qty: 1 on 09/25/2021 by Mauricio Jones DO at [facility] Left: Leg [employer] [id number] / / Procedures Procedure Name Priority Date/Time Associated Diagnosis Comments BASIC METABOLIC PANEL (CALCIUM TOTAL) Routine 09/29/2021 8:12 AM CDT from Last 3 Months or Most Recently Relevant to Health Maintenance Results * (ABNORMAL) BASIC METABOLIC PANEL (CALCIUM TOTAL) (09/29/2021 8:12 AM CDT) BUN 10 7 - 26 mg/dL 09/29/2021 8:47 AM [facility] Creatinine 0.47(L) 0.56 - 0.96 mg/dL 09/29/2021 8:47 AM [facility] Sodium 132(L) 136 - 145 mmol/L 09/29/2021 8:47 AM [facility] Potassium 4.0 3.5 - 4.5 mmol/L 09/29/2021 8:47 AM [facility] Chloride 93(L) 98 - 107 mmol/L 09/29/2021 8:47 AM [facility] CO2 32(H) 22 - 29 mmol/L 09/29/2021 8:47 AM [facility] Glucose 95 70 - 115 mg/dL 09/29/2021 8:47 AM [facility] Calcium 9.5 8.4 - 10.2 mg/dL 09/29/2021 8:47 AM [facility] Anion Gap 11 8 - 18 09/29/2021 8:47 AM [facility] BUN/Creatinine Ratio 21 7 - 23 09/29/2021 8:47 AM [facility] Osmolality Calculated 273 270 - 300 mOsm/kg 09/29/2021 8:47 AM [facility] eGFR by CKD-EPI >90 >=90 mL/min/1.7 3 m2 09/29/2021 8:47 AM [facility] Blood BLOOD SPECIMEN / Unknown Lab Venipuncture / Unknown 09/29/2021 8:[address] [facility] 09/29/2021 8:[address] [facility] us Estee [facility] - CHEMISTRY ORDERABLES Final Result [facility] [address] [place] [address], [facility] [phone] from Last 3 Months or Most Recently Relevant to Health Maintenance Insurance MEDICARE MEDICARE IRA [facility] [place] [id number] [facility] Advance Directives * Full Code (Latest Code Status on File) Date Activated Date Inactivated Comments 09/17/2021 3:56 AM 09/29/2021 12:30 PM * Full Code Date Activated Date Inactivated Comments 09/17/2021 1:35 AM 09/17/2021 3:56 AM Care Teams Club Licensee Relationship Specialty Start Date End Date Shannan Dennis MD [address] [place] [address] PCP - General Family Medicine 09/16/21
[2024-11-17 13:47] LABS: Alveolar/Arterial O2 Gradient 20.3 mmHg; Carboxyhemoglobin 1.4 % THb (0-2.0); Fractional Inspired Oxygen 21 %; HCO3 ABG 25.9 mEq/l (22.0-26.0); Methemoglobin ABG 0.3 %THb (0-1.5); Oxygen Content ABG 18.8 %vol (16.0-22.0); Oxygen Saturation ABG 96.1 % (95.0-100.0); PCO2 ABG 40.8 mmHg (35.0-45.0); PO2 ABG 80.6 mmHg (80.0-100.0); PO2 FiO2 Ratio Arterial Blood 3.84 %; Reduced Hemoglobin 4.2 %THb (0-5.0)
[2024-11-17 13:50] LABS: Modified Allen's Test Pass
--- NOTE | 2024-11-17 15:59 | WPDPFTINT ---
PFT Procedure Performed PFT Procedure Performed Spirometry with Pre/Post Bronchodilator Plethysmography (Lung Vol) Diffusing Cap (DLCO) Flow Vol Loop PFT Interpretation This is a pulmonary function test with pre and post-bronchodilator spirometry, plethysmography, diffusing capacity and rest room air arterial blood gas. The test was performed and results interpreted in accordance with the 2019 and 2005 ATS/ERS Task Force guidelines respectively using the Global Lung Function Initiative-2012 reference equations. Patient demonstrated good effort and cooperation. Reproducibility criteria were met. The quality of the pre bronchodilator spirometry maneuver was Grade A and post bronchodilator spirometry maneuver was Grade A. Findings: Spirometry: The contour the inspiratory and expiratory flow tracing are normal. The pre bronchodilator FVC is 1.55 L, 67% predicted. The pre bronchodilator FEV1 is 1.24 L, 68% predicted. The pre bronchodilator FEV1: FVC ratio is 80%. The post bronchodilator FVC is 1.59 L, representing a 2% increase. The post bronchodilator FEV1 is 1.32 L, representing a 7% increase. The post bronchodilator FEV1: FVC ratio is 83%. Plethysmography: The total lung capacity is 3.12 L, 72% predicted. The functional residual capacity is 1.60 L, 66% predicted. The residual volume is 1.48 L, 75% predicted. Diffusing capacity: The diffusing capacity unadjusted for hemoglobin and carboxyhemoglobin is 10.0, 55% predicted. The diffusing capacity adjusted for alveolar volume is 4.14, 92% predicted. Rest room air arterial blood gas: PH 7.42, PaCO2 40.8, PaO2 80.6. In comparison to previous pulmonary function testing on 03/07/2023, in which only spirometry and diffusing capacity were performed, the post bronchodilator FVC is unchanged from 1.60 L to 1.59 L. The post bronchodilator FEV1 is unchanged from 1.27 L to 1.32 L. The diffusing capacity unadjusted for hemoglobin and carboxyhemoglobin is unchanged from 10.4 to 10.0. The diffusing capacity adjusted for alveolar volume is unchanged from 4.64 to 4.14. Impression: There is a moderate restrictive ventilatory abnormality. The spirometry is normal without evidence of an obstructive abnormality. There is no significant improvement after inhaling a single dose of albuterol. The diffusing capacity unadjusted for hemoglobin and carboxyhemoglobin is moderately decreased and normalizes when adjusted for alveolar volume. The rest room arterial blood gas demonstrates a normal pH, PaCO2 and PaO2. In comparison to previous pulmonary function testing on 03/07/2023, in which only spirometry and diffusing capacity were performed, there is no significant change in the FVC, FEV1, or diffusing capacity. Clinical correlation is recommended.
== END 2024-11-17 12:01 | disposition home or self-care (01) ==
PROVIDERS: PCP Family Medicine; Visit Provider Physician Assistant
DX: R91.8 Other nonspecific abnormal finding of lung field (principal); J84.09 Other alveolar and parieto-alveolar conditions; I51.7 Cardiomegaly
CPT/HCPCS: 36600; 71046; 78582; 82375; 82805; 83050; 85018; 94060; 94726; 94729; A9540; A9558

== ENCOUNTER 2025-01-20 14:40 | Outpatient (CLI) | payer MEDICARE, OTHER, SELFPAY ==
--- NOTE | ~2025-01-20 | MM_ITS ---
EXAMINATION: MM screening [facility] [place] HISTORY: Screening TECHNIQUE: Craniocaudal and mediolateral oblique 3-D tomosynthesis images were obtained and synthetic 2-D images were generated. CAD analysis was submitted and interpreted. COMPARISON: Comparison to multiple prior studies sequentially, with oldest reviewed study dated 08/30/2006. BREAST PARENCHYMAL COMPOSITION: There are scattered areas of fibroglandular density. FINDINGS: There is no evidence of suspicious mass, calcification, or architectural distortion to suggest malignancy in either breast. Scattered benign-appearing calcifications are present. IMPRESSION: 1. No mammographic evidence of malignancy. 2. Recommend routine screening mammography in one year. BI-RADS Category 2: Benign finding(s). Reviewed, dictated and finalized at location B.
== END 2025-01-20 14:41 | disposition home or self-care (01) ==
LOC: MICIMG 14:42
PROVIDERS: PCP Student in an Organized Health Care Education/Training Program; Visit Provider Family Medicine
DX: Z12.31 Encounter for screening mammogram for malignant neoplasm of breast (principal)
CPT/HCPCS: 77063; 77067